=== PATIENT | male | born 1950 ===

== ENCOUNTER 2020-01-10 20:05 | Inpatient (IN) | payer MEDICARE ==
[~2020-01-10] VITALS: Ht 188 cm; Wt 66.6 kg
[2020-01-10 20:45] VITALS: BP 160/83
--- NOTE | 2020-01-10 21:29 | NUR ---
Admission Note with Justification for Admission to [facility] Patient admitted to [facility] for protective oversight for emergency stabilization of acute psychiatric crisis. Pt admitted from: [facility] Medina Mcmillan Mode of arrival: EMS Accompanied By: EMS Precipitating behaviors that initiated intake and admission: touched peer raised her shirt and touched her breasts, exposed himself from the waist down and soliciting peers to touch him, agitated Description of failure of out patient attempts at stabilization in previous setting list behavior and medication trials: redirection,observation, PRN Lorazepam, behavioral monitoring Behaviors and assessment findings upon admission: Calm and cooperative, VSS, oriented to name and only, ambulatory Plan: Admit for protective oversight for adjustment and stabilization of medications, behaviors and mood. Intense treatment regimen including groups, medication adjustments, therapy, consistent regimen for ADL's, self care, and sleep hygiene. Daily monitoring by Inpatient staff, Psychiatry, and Medical Physician.
[2020-01-10] MEDS ORDERED: TAMS0.4C97 PO (21:37)
[2020-01-10] MEDS ORDERED: CLON0.5T4 PO (21:37)
[2020-01-10] MEDS ORDERED: ACET650S11 RC (21:37)
[2020-01-10] MEDS ORDERED: LISI-334 PO (21:37)
[2020-01-10] MEDS ORDERED: QUET25TA5 PO (21:37)
[2020-01-10] MEDS ORDERED: MELA3TAB4 PO (21:37)
[2020-01-10] MEDS ORDERED: MORP100S3 SL (21:37)
[2020-01-10] MEDS ORDERED: ATRO2DRO3 SL (21:37)
[2020-01-10] MEDS ORDERED: LORA2ORA8 PO (21:37)
[2020-01-10] MEDS ORDERED: SENN8.6T11 PO (21:37)
[2020-01-10] MEDS ORDERED: MAG HYDROX/AL HYDROX/SIMETH 30 ML ORAL.SUSP PO PRN (21:45)
[2020-01-10] MEDS ORDERED: METHYL SALICYLATE/MENTHOL TOPICAL OINTMENT 57GM TUBE. TP PRN (21:45)
[2020-01-10] MEDS ORDERED: ACETAMINOPHEN 325 MG TABLET PO PRN (21:45)
--- NOTE | 2020-01-10 21:55 | PDOC ---
Exam Note: Ceasar Note: Please also refer to the separate dictated note~for this date of service dictated separately.~Patient seen individually. Discussed the patient with Nursing staff reviewed the chart.~Reviewed interim history and current functioning. Reviewed vital signs,~Labs/ Radiology~and current medications noted below. Continue current treatment with the changes noted in the dictated addendum note Assessment: Vital Signs/I&O: Vital Signs Date Time Temp Pulse Resp B/P (MAP) Pulse Ox O2 Delivery O2 Flow Rate FiO2 01/10/20 20:45 97.9 71 18 160/83 (108) 100 Current Medications: I have reviewed the current psychotropics carefully including drug interactions. Risk benefit ratio favors no change other than as noted in my dictated progress note. ROGE HOGAN MD Jan 10, 2020 21:55
[2020-01-10] MEDS: QUEtiapine 25 MG TABLET. PO SCH (22:36)
[2020-01-10] MEDS: clonazePAM 0.5 MG TABLET PO SCH (22:36)
[2020-01-10] MEDS: MELATONIN 3 MG TABLET PO SCH (22:37)
--- NOTE | 2020-01-11 00:58 | NUR ---
When pt arrived on [facility] he was pleasant and cooperative. He is very confused and tried to answer questions but was only able to give name and . Later he was able to state the names of his children and . After the admit process he lay quietly in bed and eventually fell to sleep. When awaken for HS meds he took them whole without difficulty. He then said we need to make some changes in the jobs at his work because he "cannot add or subtract anymore". After some conversation he went back to sleep. Pt has had no behaviors tonight.
[2020-01-11 03:31] LABS: BACTERIA,URINE 0 /HPF (0-FEW); BILIRUBIN,URINE NEG (NEG); CLARITY,URINE CLEAR; COLOR,URINE YELLOW; GLUCOSE,URINE NEG (NEG); NITRITE,URINE NEG (NEG); RBC,URINE 0 /HPF (0-2); SQUAMOUS EPITHELIAL CELL,UR OCC /LPF; WBC,URINE RARE /HPF (0-4)
[2020-01-11 05:38] VITALS: BP 103/62
--- NOTE | 2020-01-11 06:15 | NUR ---
Covid nasal swab done and sent to lab. Pt has slept well tonight and was cooperative with swab and lab draw.
[2020-01-11 06:48] LABS: BASO % 1 % (0-3); EOS # 0.2 x10^3/uL (0.0-0.7); EOS % 4 % (0-3); HEMATOCRIT 38.6 % (39.0-53.0); HEMOGLOBIN 12.9 g/dL (13.0-17.5); LYMPH # 1.9 x10^3/uL (1.0-4.8); LYMPH % 38 % (24-48); MEAN CORPUSCULAR HEMOGLOBIN 30 pg (25-35); MEAN CORPUSCULAR HGB CONC 33 g/dL (31-37); MEAN CORPUSCULAR VOLUME 89 fL (79-100); MONO # 0.6 x10^3/uL (0.0-1.1); MONO % 13 % (0-9); NEUT # 2.2 x10^3uL (1.8-7.7); NEUT % 45 % (31-73); PLATELET COUNT 238 x10^3/uL (140-400); RED BLOOD COUNT 4.34 x10^6/uL (4.30-5.70); RED CELL DISTRIBUTION WIDTH 14.2 % (11.5-14.5); WHITE BLOOD COUNT 4.9 x10^3/uL (4.0-11.0)
[2020-01-11 06:59] LABS: ALBUMIN 3.1 g/dL (3.4-5.0); ALBUMIN/GLOBULIN RATIO 1.2 (1.0-1.7); CALCIUM 8.5 mg/dL (8.5-10.1); CREATININE 0.9 mg/dL (0.7-1.3); GFR 83.7; POTASSIUM 3.6 mmol/L (3.5-5.1); TOTAL BILIRUBIN 0.2 mg/dL (0.2-1.0); TOTAL PROTEIN 5.7 g/dL (6.4-8.2)
--- NOTE | 2020-01-11 10:00 | NUR ---
ACTIVITY THERAPY ASSESSMENTS based on notes, observation, and interview. Pt was sitting on his bed reading a bible given to him by AT. AT asked if the pt was willing to answer some questions and he said yes. Pt was calm, pleasant, and controlled during time of assessment. Pt likes to watch sports, play cards games and poker, listen to music-beatles, exercise, and was raised adventist and has accepted Mirza. Pt said that he thought he was and has two children. Pt struggled to come up with the names of his two children. Pt then said 'I have memory problems.' Pt was unable to recall some facts and details about his family. AT asked pt if he knew where he was and he knew that he was in a hospital but could not come up with the hospital name. AT asked pt if he knew why he was here and he said because he was getting angry and upset. Per notes pt didn't mention his sexually inappropriate behaviors. Pt said that he liked to go to sporting events with his family. AT asked what pt liked to do with his friends and he said that he has tons of friends and lost them. AT asked if the pt reported any stress which he said yes. AT asked how he rick with stress and he said that you can't let things get to you. AT asked pt how his eyesight and hearing was. Pt said that his eyes were good but hearing is not so good. Pt seemed to struggle to hear AT through N95 at certain points and some questions were repeated for him. AT asked if pt knew where he came before his admission and he said it was a facility in [place] and he believed the name started with an A. AT asked if pt has a good support sytem and he said that he has always had a good support system. Pt states that 'things have went to heck lately' and 'my memory of things have went out.' Pt seemed to be a bit frustrated and upset with his memory loss. Initial goal aimed to increase stress management/relaxation and self-esteem development skills. Pt will participate in at least three individual or group Activity Therapy sessions per week.
[2020-01-11] MEDS: QUEtiapine 25 MG TABLET. PO SCH ×2 (10:55→20:23)
[2020-01-11] MEDS: LISINOPRIL 20 MG TABLET PO SCH (10:55)
[2020-01-11] MEDS: TAMSULOSIN 0.4 MG CAP.ER.24H. PO SCH (10:55)
--- NOTE | 2020-01-11 12:23 | CONS ---
DATE OF CONSULTATION: 01/11/2020 ATTENDING PHYSICIAN: Dr. Ford. REASON FOR CONSULTATION: We are asked to see this patient for medical consultation. HISTORY OF PRESENT ILLNESS: The patient is a pleasant 69-year-old gentleman recently admitted from [facility], a fpc in [place], [place]. He has a diagnosis of Lewy body dementia with behavioral issues. When I saw him, he was very cooperative. He does have dementia and gave me a limited history. There were issues with his , who is the power of attorney at law, used to live in a town called [place], [place]. 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 He had been fairly successful, but he has been in decline over the last year. He is a DNR order from outside hospital. PAST MEDICAL HISTORY: Gleaned from the chart. He has underlying dementia, some degenerative arthritis and essential hypertension. ALLERGIES: He has allergies to ZOFRAN and CEFADROXIL, the exact reaction is unclear. MEDICATIONS: Currently scheduled medicines include Tylenol, atropine eyedrops, clonazepam, lisinopril 20 mg daily, lorazepam, melatonin, morphine, Seroquel, senna and Flomax. SOCIAL HISTORY: He is a nonsmoker, no drinking history noted. FAMILY HISTORY: Unobtainable due to the patient's confusion. REVIEW OF SYSTEMS: Unfortunately, unobtainable. I did observe him. His appetite is fair. He ate most of his breakfast. PHYSICAL EXAMINATION: GENERAL: When I saw him, this is a pleasant, middle-aged gentleman. INITIAL VITAL SIGNS: Showed a blood pressure fluctuating between 110 and 160 mmHg. His temperature was 98.1 degrees Fahrenheit, oxygen saturation 99% on room air, pulse is 66 and regular. HEENT: Head is without trauma. The pupils are reactive. The sclerae are nonicteric. The oropharynx is clear. NECK: Supple. There is no thyromegaly or bruits. LUNGS: Otherwise, clear to auscultation. CARDIOVASCULAR: Showed regular heart tones. No obvious gallops. Peripheral pulses are palpable and full. ABDOMEN: Soft, scaphoid, nontender. Bowel sounds were normoactive. EXTREMITIES: Showed no cyanosis or edema. SKIN: Warm and dry. NEUROLOGIC: His cranial nerves 2-12 are grossly intact. His tongue is midline. Uvula is midline. His customer account technician in upper and lower extremities are equal and symmetrical. Deep tendon reflexes of upper and lower extremities are equal and symmetrical. Negative Babinski. I did assess him for his gait. He has a negative Romberg. PERTINENT LABORATORY STUDIES: His hemoglobin is 12.9 g/dL with a white count of 4900. Electrolytes showed a sodium 145 mEq, potassium 3.6, creatinine 0.9 mg percent. Transaminases are within normal range. Nonfasting blood sugar 103. A COVID-19 swab prior to admission was negative. ASSESSMENT: 1. A 69-year-old gentleman who has unfortunately Lewy body dementia. 2. Behavioral issues associated with dementia. 3. Essential hypertension with labile blood pressures. 4. Degenerative arthritis. RECOMMENDATIONS: 1. I reviewed his medicines. The patient is stable from a medical standpoint. 2. Continue medicines as ordered. 3. We should gladly follow along during the course of his hospitalization. Thank you again for asking me to see this patient for medical consultation. MARISSA ACOSTA MD DR: NANNETTE/lilli JOB#: [id number] / [id number] ROGE Torres MD
--- NOTE | 2020-01-11 14:00 | NUR ---
Nurse took patient to radiology for head CT. Patient calm and cooperative with CT. He told this nurse he is [facility]. Patient joined music group in front of the [employer] station.
--- NOTE | 2020-01-11 14:35 | NUR ---
Patient has been calm and cooperative. He was oriented x4 at the time of assessment. Patient laying down on bed, reading a book. He is med compliant and pleasant. No adverse behaviors have been noted.
[2020-01-11 15:31] VITALS: BP 127/65
--- NOTE | 2020-01-11 15:32 | RAD ---
EXAM: CT HEAD WITHOUT CONTRAST. HISTORY: Altered mental status. TECHNIQUE: Computed tomography of the head was performed without intravenous contrast. One or more of the following individualized dose reduction techniques were utilized for this examination: 1. Automated exposure control. 2. Adjustment of the mA and/or kV according to patient size. 3. Use of iterative reconstruction technique. COMPARISON: None. FINDINGS: There is no intracranial hemorrhage. Hypoattenuation within the periventricular white matter indicates mild chronic microangiopathic change. The ventricles are normal in size and position. There is mild mucosal thickening within the ethmoid air cells. The orbits are unremarkable. The temporal bones are unremarkable. The calvarium reveals no suspicious lesions. IMPRESSION: 1. No acute intracranial findings. Mild chronic microangiopathic white matter change. Electronically signed by: Marce Vee MD (01/11/2020 3:29 PM) [id number]
[2020-01-11 16:07] LABS: THYROXINE 5.8 ug/dL (4.5-12.0)
[2020-01-11 16:22] LABS: THYROID STIM HORMONE (TSH) 2.04 uIU/mL (0.358-3.740)
--- NOTE | 2020-01-11 17:30 | NUR ---
PSYCHOSOCIAL ASSESSMENT ADMISSION DATE: 01/10/20 CONTACT INFORMATION: DPOA/Guardian Contact Name: Magda Garcia Contact Address: [place] [address] Contact Phone #: ETHNIC ORIGIN: REASONS FOR ADMISSION: Agitated Poor impulse control Other ADDITIONAL ADMISSION COMMENTS: According to the intake, pt touched a peer and raised her shirt to touch her breasts. Pt is exposing himself from waist down and soliciting peers to touch him. Pt is agitated, combative with staff and urinating in the hallway. REASON FOR ADMISSION IN PATIENT/FAMILY'S OWN WORDS: This is just a phase he is going through...part of his dx I guess. PATIENT/FAMILY EXPECTATIONS FOR ADMISSION: Decrease his behaviors so he can return to [facility]. LIVING SITUATION: Patient lives with: Memory Care Other living arrangements: Contact Name: Hipolito Contact Address: [address] [place] [address]; [place] [address] Contact Phone #: Contact Fax #: FAMILY RELATIONS: Marital Status: # of Marriages: 1 # of Children: 2 [facility] Family Support: Concerned Cooperative Involved in DC Planning Additional Comments r/t Family: Pt has been to his Magda for the last 45 years. Their 46th anniversary is March 10 (12 days before his birthday). Together they have 2 children: Yadira and Robert who live in [place]. SIGNIFICANT PSYCHIATRIC/MEDICAL HISTORY: Psychiatric/Treatment History: This is pt first admission to [facility]. He has come in with a Lewy body Dementia dx. Pertinent Family History: Pt sister, who's name is also Magda, had Alzheimers. HISTORICAL DATA: Childhood Environment: Other-see below Childhood Environment Additional Comments: Pt childhood was not discussed. 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 service: N Mandaen background: No preference Sexual orientation: Heterosexual Educational Level: Pt graduated High school (12th grade) then continued to get his B.S. in Accounting and Business Mgmt Past/Present Interests/Hobbies: Anything sports politics games (Jenga) crossword puzzles Financial support/resources: Chcf/Pension Social Security Monthly income: Person handling finances: Pt handles all medications. Do you have a history of legal problems: N Cultural considerations: None SOCIAL RELATIONSHIPS-CURRENT/PAST: Psychiatrist: None PCP: Dr. Denny Counselor/Therapist: None Veterans' Administration: None Support Group: None Glassware Finisher/Capacitor Tester: None Other relationships: staff at [facility] STRENGTHS & WEAKNESSES: Patient's strengths: Good family support Education level Ambulatory Other patient strengths: Patient's weaknesses: Impulsive Poor social skills Other Other patient weaknesses: PRELIMINARY PLAN OF TREATMENT: Preliminary plan: Medication Stabilization Monitor Med Effects Control abnormal behavior Other Other preliminary treatment comments: Decrease in sexualized behaviors. DISCHARGE PLANNING: Discharge planning/disposition: Current Living Arrange. Additional discharge needs identified: ADDITIONAL INFORMATION: Other Pertinent Data: SW gathered information from pt , the facility and information on the intake. As it stands, pt family would like to pt to return to [facility] once he is stable. Pt mentioned that without being able to do visits, they have been doing some face to face interactions online through Zoom. Pt wondered if once pt was more stable if she would be able to have a Zoom meet with pt. SW will discuss this with the team.
[2020-01-11] MEDS: clonazePAM 0.5 MG TABLET PO SCH (20:23)
[2020-01-11] MEDS: MELATONIN 3 MG TABLET PO SCH (20:23)
--- NOTE | 2020-01-11 21:30 | NUR ---
At med pass pt was in his room he is pleasant and well oriented. He asked why he is here and how can he get out. Discussed the behaviors that caused him to be sent here, exposing self and inappropriate touching of others. He said he remembers doing those things and that he will just have to stop doing that. He was compliant with meds then shown around the unit. Explained to him that mask needs to be worn in [place] and only to go into his room. This had to be reinforced a couple of times then he returned to his room.
--- NOTE | 2020-01-11 21:59 | PDOC ---
Exam Note: Ceasar Note: Please also refer to the separate dictated note~for this date of service dictated separately.~Patient seen individually. Discussed the patient with Nursing staff reviewed the chart.~Reviewed interim history and current functioning. Reviewed vital signs,~Labs/ Radiology~and current medications noted below. Continue current treatment with the changes noted in the dictated addendum note Assessment: Vital Signs/I&O: Vital Signs Date Time Temp Pulse Resp B/P (MAP) Pulse Ox O2 Delivery O2 Flow Rate FiO2 01/11/20 20:25 97.4 72 98 01/11/20 15:31 16 127/65 (85) I & O 01/10/20 01/10/20 01/11/20 15:00 23:00 07:00 Intake Total 200 ml Balance 200 ml Labs: Laboratory Tests Test 01/11/20 02:30 01/11/20 06:11 Urine Collection Type Unknown Urine Color Yellow Urine Clarity Clear Urine pH 6.0 Urine Specific [place] 1.025 Urine Protein Neg (NEG-TRACE) Urine Glucose (UA) Neg mg/dL (NEG) Urine Ketones (Stick) Neg mg/dL (NEG) Urine Blood Neg (NEG) Urine Nitrite Neg (NEG) Urine Bilirubin Neg (NEG) Urine Urobilinogen Dipstick 1.0 mg/dL (0.2 mg/dL) Urine Leukocyte Esterase Neg (NEG) Urine RBC 0 /HPF (0-2) Urine WBC Rare /HPF (0-4) Urine Squamous Epithelial Cells Occ /LPF Urine Bacteria 0 /HPF (0-FEW) White Blood Count 4.9 x10^3/uL (4.0-11.0) Red Blood Count 4.34 x10^6/uL (4.30-5.70) Hemoglobin 12.9 g/dL (13.0-17.5) L Hematocrit 38.6 % (39.0-53.0) L Mean Corpuscular Volume 89 fL (79-100) Mean Corpuscular Hemoglobin 30 pg (25-35) Mean Corpuscular Hemoglobin Concent 33 g/dL (31-37) Red Cell Distribution Width 14.2 % (11.5-14.5) Platelet Count 238 x10^3/uL (140-400) Neutrophils (%) (Auto) 45 % (31-73) Lymphocytes (%) (Auto) 38 % (24-48) Monocytes (%) (Auto) 13 % (0-9) H Eosinophils (%) (Auto) 4 % (0-3) H Basophils (%) (Auto) 1 % (0-3) Neutrophils # (Auto) 2.2 x10^3uL (1.8-7.7) Lymphocytes # (Auto) 1.9 x10^3/uL (1.0-4.8) Monocytes # (Auto) 0.6 x10^3/uL (0.0-1.1) Eosinophils # (Auto) 0.2 x10^3/uL (0.0-0.7) Basophils # (Auto) 0.0 x10^3/uL (0.0-0.2) Sodium Level 145 mmol/L (136-145) Potassium Level 3.6 mmol/L (3.5-5.1) Chloride Level 110 mmol/L (98-107) H Carbon Dioxide Level 29 mmol/L (21-32) Anion Gap 6 (6-14) Blood Urea Nitrogen 22 mg/dL (8-26) Creatinine 0.9 mg/dL (0.7-1.3) Estimated GFR (Cockcroft-Gault) 83.7 BUN/Creatinine Ratio 24 (6-20) H Glucose Level 103 mg/dL (70-99) H Calcium Level 8.5 mg/dL (8.5-10.1) Magnesium Level 2.0 mg/dL (1.8-2.4) Iron Level 55 ug/dL (65-175) L Total Iron Binding Capacity 257 ug/dL (250-450) Iron Saturation 21 % (15-34) Total Bilirubin 0.2 mg/dL (0.2-1.0) Aspartate Amino Transferase (AST) 7 U/L (15-37) L Alanine Aminotransferase (ALT) 17 U/L (16-63) Alkaline Phosphatase 54 U/L (46-116) Total Protein 5.7 g/dL (6.4-8.2) L Albumin 3.1 g/dL (3.4-5.0) L Albumin/Globulin Ratio 1.2 (1.0-1.7) Triglycerides Level 59 mg/dL (0-150) Cholesterol Level 165 mg/dL (0-200) LDL Cholesterol, Calculated 95 mg/dL (0-100) VLDL Cholesterol, Calculated 11 mg/dL (0-40) Non-HDL Cholesterol Calculated 106 mg/dL (0-129) HDL Cholesterol 59 mg/dL (40-60) Cholesterol/HDL Ratio 2.0 Vitamin B12 Level 290 pg/mL (247-911) 25-Hydroxy Vitamin D Total 22.9 ng/mL (30-100) L Thyroid Stimulating Hormone (TSH) 2.040 uIU/mL (0.358-3.740) Thyroxine (T4) 5.8 ug/dL (4.5-12.0) Total Triiodothyronine (TT3) 89 ng/dL (71-180) Treponema pallidum Antibody Nonreactive (Nonreactive) Current Medications: Meds: Current Medications Medications (Trade) Dose Ordered Sig/Jone Route PRN Reason Start Time Stop Time Status Last Admin Dose Admin Clonazepam (KlonoPIN) 0.5 mg HS PO 01/10/20 22:30 01/11/20 20:23 Lisinopril (Prinivil) 20 mg DAILY PO 01/11/20 09:00 01/11/20 10:55 Melatonin (Melatonin) 3 mg HS PO 01/10/20 22:30 01/11/20 20:23 Quetiapine Fumarate (SEROquel) 25 mg BID PO 01/10/20 22:30 01/11/20 20:23 Tamsulosin HCl (Flomax) 0.4 mg DAILY PO 01/11/20 09:00 01/11/20 10:55 I have reviewed the current psychotropics carefully including drug interactions. Risk benefit ratio favors no change other than as noted in my dictated progress note. ROGE HOGAN MD Jan 11, 2020 21:58
[2020-01-12 00:07] LABS: HEMOGLOBIN A1C 5.5 % (4.8-5.6)
[2020-01-12 06:58] VITALS: BP 116/79
[2020-01-12] MEDS: LISINOPRIL 20 MG TABLET PO SCH (08:07)
[2020-01-12] MEDS: QUEtiapine 25 MG TABLET. PO SCH ×2 (08:07→21:10)
[2020-01-12] MEDS: TAMSULOSIN 0.4 MG CAP.ER.24H. PO SCH (08:07)
--- NOTE | 2020-01-12 11:22 | NUR ---
Dr Mills informed of Vit D 22.9. No new orders noted.
--- NOTE | 2020-01-12 13:27 | HP ---
ADMIT DATE: 01/10/2020 PSYCHIATRIC ADMISSION HISTORY/EVALUATION This late entry 01/09 covers elements not covered in my initial note. I met with the patient individually and discussed earlier with Agnes Robles, application coordinator and nursing staff, SUGEY Mercado. IDENTIFYING DATA: The patient is a 69-year-old male referred to us from [facility] in [place], [place], by his primary care physician and psychiatrist with a diagnosis of Lewy body dementia with delusion, behavioral disturbance. Reportedly, the patient has been sexually inappropriate, raised the shirt and touched the breast of a female peer, exposed himself and solicited peers to touch him. He has been agitated. At times, he seems much more confused than at other times consistent with his Lewy body dementia diagnosis. He has been on hospice care, but halfway indicated. This was because he was extremely sedated, withdrawn at admission to the facility. Since then has not seemed to quite meet criteria for hospice and this was revoked. CHIEF COMPLAINT: "I don't do those things." HISTORY OF PRESENT ILLNESS: The patient reportedly has a history of Lewy body dementia. [facility], recently getting increasingly agitated, sexually inappropriate with sleep and appetite changes, worsening confusion, paranoia and impulse control problems. No active suicidal or homicidal ideation. No clear history of bipolar disorder. PAST PSYCHIATRIC HISTORY: As above. PAST MEDICAL HISTORY: Hypertension, hyperlipidemia, history of encephalopathy, seizure disorder, BPH, chronic constipation. DIET: Regular. Takes medications whole, ambulates independently. CODE STATUS: DNR. ALLERGIES: DURICEF AND ZOFRAN. CURRENT PSYCHOTROPICS: Seroquel 25 mg b.i.d., melatonin 3 mg at bedtime, Klonopin 0.5 mg at bedtime for seizures. 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 No alcohol or drug abuse, physical, sexual or elder abuse history is noted. Not known to be a perpetrator. FAMILY HISTORY: Noncontributory. REVIEW OF SYSTEMS: No CV, , pulmonary, eye, ENT system symptoms on review. MENTAL STATUS EXAMINATION: The patient was seen individually. He is oriented to himself and situation. Speech has some latency, somewhat hard of hearing. Abstraction fair, computation impaired, language function intact. Short term memory is impaired, paranoid, somewhat dysphoric, minimizes this for his mood. No suicidal or homicidal ideation. Attention span is short. LABORATORY DATA: Reviewed. IMPRESSION: Major depressive disorder with psychotic features; Lewy body dementia; major neurocognitive disorder; Lewy body with delusion; depression; behavioral disturbance; anxiety disorder, unspecified; impulse control disorder, unspecified. PLAN: Admit to Geropsychiatry Unit at [facility]. I will see the patient daily individually from a psychiatric standpoint. Medical followup with Dr. Nunez/Dr. Mills. Continue the patient on his current psychotropics. Consider having a CT head if not done recently. Make further adjustments as clinically indicated. MAN Kamini HOGAN MD DR: AMANDA/lilli JOB#: [id number] / [id number]
--- NOTE | 2020-01-12 13:47 | PN ---
DATE: 01/11/2020 PSYCHIATRIC PROGRESS NOTE This late entry 01/11/2020 covers elements not covered in my initial note. SUBJECTIVE: I met with the patient evening of 01/11/2020 on telehealth rounds with SUGEY Mercado and SUGEY Kraus and staffed at a treatment team meeting with the entire team in the morning along with [facility] social service staff, Agnes Robles social service staff. The patient slept 5-3/4 hours previous night. He is oriented x 2, hospice care was revoked. CT head has been requested given his diagnosis of Lewy body dementia. He has been somewhat more confused at times and other times verbal interactive as I met with him. REVIEW OF SYSTEMS: No CV, , pulmonary, eye system symptoms on review. MENTAL STATUS EXAMINATION: Oriented to himself and situation. Speech has some latency, coherent. Abstraction fair, computation impaired, language function intact, attention span short. Mood and affect withdrawn. LABORATORY DATA: Reviewed. IMPRESSION: Major depressive disorder with psychotic features; major neurocognitive disorder, Lewy body with delusion, depression, behavioral disturbance; anxiety disorder, unspecified; impulse control disorder, unspecified. PLAN: Continue current psychotropics. Add Zyprexa 2.5 mg q.2 hours p.r.n. psychosis, agitation, max 10 mg in [address] head. Continue rest of the psychotropics. Adjust further as clinically indicated. MAN Kamini HOGAN MD DR: AMANDA/lilli JOB#: [id number] / [id number]
[2020-01-12 16:09] VITALS: BP 130/70
--- NOTE | 2020-01-12 16:34 | NUR ---
pt out of room in [place] with penis hanging out. Pt was shaking it at staff. Redirected several times. PRN's utilized.
[2020-01-12] MEDS: MELATONIN 3 MG TABLET PO SCH (21:10)
--- NOTE | 2020-01-12 22:00 | NUR ---
Patient is in his room on assumption of care. He is flat, sarcastic. When asked by this nurse how he was doing, he responded "Well, I shit and pissed my pants, and it's been going on for an eternity." This nurse encouraged patient to go into the bathroom and get changed, and he was resistant at first, stating "I can't afford any more of this." Nurse assured him that briefs and gown changes were included with his stay, and he responded "Bullshit, I already have some in my closet." Patient retrieved a brief and returned to the bathroom. He was able to clean himself up independently and change his clothing. This nurse asked him why he didn't get up to use the restroom, and he simply restated "It's been a goddamn eternity already." Fixed up patient bed and helped him get covered up. He was compliant with assessments and took his medications whole at that point. Denies any pain or discomfort. Denies SI/HI. Will continue to monitor.
--- NOTE | 2020-01-12 22:03 | PN ---
DATE: 01/12/2020 PSYCHIATRIC PROGRESS NOTE This note covers the elements not covered in my initial note of 01/12/2020. SUBJECTIVE: The patient was seen on telehealth rounds in the evening. Per nursing report by SUGEY Holt, the patient appears reasonably oriented at certain times, other times, appears more confused. Earlier in the day, he was walking with his penis hanging outside his clothes, refused to put it in, quite disorganized. CT head shows no acute changes or white matter changes, nothing specific for frontotemporal dementia. He remains impulsive. REVIEW OF SYSTEMS: No CV, , pulmonary, eye, ENT system symptoms on review. Reliability varies. MENTAL STATUS EXAM: Oriented to himself when I met with him in the evening. Insight, judgment, recent memory is impaired. Language function intact. Attention span short. Mood and affect remains withdrawn. Other times, more disinhibited and extroverted. LABORATORY DATA: Reviewed. IMPRESSION: Major neurocognitive disorder, early, possibly Lewy body frontotemporal with delusion, depression, behavioral disturbance, major depressive disorder with psychotic features; psychotic disorder, unspecified. Rest unchanged. PLAN: Stop Klonopin 0.5 mg at bedtime since this could be disinhibiting him, start Depakote Sprinkles 125 mg 9 a.m. and 5 p.m. Check CBC, CMP, valproic acid level in 3 days. Start trazodone 50 mg at bedtime p.r.n. insomnia, may repeat x 1. Maintain melatonin 3 mg at bedtime, Seroquel 25 mg b.i.d., Zyprexa p.r.n. Rest unchanged for now. MAN Kamini HOGAN MD DR: AMANDA/lilli JOB#: [id number] / [id number]
--- NOTE | 2020-01-12 22:04 | PDOC ---
Exam Note: Ceasar Note: Please also refer to the separate dictated note~for this date of service dictated separately.~Patient seen individually. Discussed the patient with Nursing staff reviewed the chart.~Reviewed interim history and current functioning. Reviewed vital signs,~Labs/ Radiology~and current medications noted below. Continue current treatment with the changes noted in the dictated addendum note Assessment: Vital Signs/I&O: Vital Signs Date Time Temp Pulse Resp B/P (MAP) Pulse Ox O2 Delivery O2 Flow Rate FiO2 01/12/20 16:09 98.0 68 20 130/70 (90) 98 I & O 01/11/20 01/11/20 01/12/20 15:00 23:00 07:00 Intake Total 360 ml 240 ml Balance 360 ml 240 ml Current Medications: I have reviewed the current psychotropics carefully including drug interactions. Risk benefit ratio favors no change other than as noted in my dictated progress note. Diagnosis: Problems: (1) Major depressive disorder with psychotic features (2) Lewy body dementia with behavioral disturbance (3) Major neurocognitive disorder (4) Anxiety disorder, unspecified (5) Impulse control disorder, unspecified ROGE HOGAN MD Jan 12, 2020 22:04
[2020-01-13 05:38] VITALS: BP 131/76
[2020-01-13] MEDS: DIVALPROEX 125 MG CAP.SPRINK PO SCH ×2 (08:38→16:30)
[2020-01-13] MEDS: LISINOPRIL 20 MG TABLET PO SCH (08:38)
[2020-01-13] MEDS: TAMSULOSIN 0.4 MG CAP.ER.24H. PO SCH (08:39)
[2020-01-13] MEDS: QUEtiapine 25 MG TABLET. PO SCH ×2 (08:39→20:08)
[2020-01-13 16:12] VITALS: BP 130/85
--- NOTE | 2020-01-13 18:00 | NUR ---
Pt has been up in walking halls with mask on. Attended groups. Has been very disorganized. Has difficulty with word finding. No sexually inappropriate sexual behavior this shift. Intermittent anxiety relieved with PRN zydis.
[2020-01-13] MEDS: MELATONIN 3 MG TABLET PO SCH (20:07)
[2020-01-13] MEDS: traZODone 50 MG TABLET. PO PRN ×2 (20:07→21:50)
[2020-01-13] MEDS ORDERED: hydrOXYzine HCL 25 MG TABLET PO PRN (21:00)
--- NOTE | 2020-01-13 21:50 | PDOC ---
Exam Note: Ceasar Note: Please also refer to the separate dictated note~for this date of service dictated separately.~Patient seen individually. Discussed the patient with Nursing staff reviewed the chart.~Reviewed interim history and current functioning. Reviewed vital signs,~Labs/ Radiology~and current medications noted below. Continue current treatment with the changes noted in the dictated addendum note Assessment: Vital Signs/I&O: Vital Signs Date Time Temp Pulse Resp B/P (MAP) Pulse Ox O2 Delivery O2 Flow Rate FiO2 01/13/20 16:12 98.3 59 20 130/85 (100) 96 Room Air I & O 01/12/20 01/12/20 01/13/20 15:00 23:00 07:00 Intake Total 240 ml 680 ml Balance 240 ml 680 ml Current Medications: Meds: Current Medications Medications (Trade) Dose Ordered Sig/Jone Route PRN Reason Start Time Stop Time Status Last Admin Dose Admin Divalproex Sodium (Depakote Sprinkles) 125 mg BIDBFRMEAL PO 01/13/20 07:30 01/13/20 16:30 I have reviewed the current psychotropics carefully including drug interactions. Risk benefit ratio favors no change other than as noted in my dictated progress note. Diagnosis: Problems: (1) Psychotic disorder (2) Impulse control disorder, unspecified (3) Lewy body dementia with behavioral disturbance (4) Anxiety disorder, unspecified (5) Major neurocognitive disorder (6) Major depressive disorder with psychotic features ROGE HOGAN MD Jan 13, 2020 21:50
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
[2020-01-14] MEDS ORDERED: HALOPERIDOL LACT 5 MG/ML VIAL. IM ONE ×2 (00:30→01:15)
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
[2020-01-14 04:30] VITALS: BP 114/68
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
[2020-01-14] MEDS: DIVALPROEX 125 MG CAP.SPRINK PO SCH ×2 (08:17→16:30)
[2020-01-14] MEDS: TAMSULOSIN 0.4 MG CAP.ER.24H. PO SCH (08:17)
[2020-01-14] MEDS: QUEtiapine 25 MG TABLET. PO SCH ×2 (08:17→20:44)
[2020-01-14] MEDS: LISINOPRIL 20 MG TABLET PO SCH (08:17)
[2020-01-14] MEDS: HALOPERIDOL LACT 5 MG/ML VIAL. IM SCH ×2 (08:18→09:00)
--- NOTE | 2020-01-14 15:32 | NUR ---
Pt hyperverbal and very disorganized with thought most of day. Pt drwsy in afternoon. Pt escorted back to room. IM haldol and Ativan not administered. Pt did take am meds without difficulty.
[2020-01-14 16:07] VITALS: BP 110/61
[2020-01-14] MEDS: MELATONIN 3 MG TABLET PO SCH (20:44)
--- NOTE | 2020-01-14 21:56 | PDOC ---
Exam Note: Ceasar Note: Please also refer to the separate dictated note~for this date of service dictated separately.~Patient seen individually. Discussed the patient with Nursing staff reviewed the chart.~Reviewed interim history and current functioning. Reviewed vital signs,~Labs/ Radiology~and current medications noted below. Continue current treatment with the changes noted in the dictated addendum note Assessment: Vital Signs/I&O: Vital Signs Date Time Temp Pulse Resp B/P (MAP) Pulse Ox O2 Delivery O2 Flow Rate FiO2 01/14/20 16:07 97.8 88 16 110/61 (77) 92 01/13/20 16:12 Room Air I & O 01/13/20 01/13/20 01/14/20 15:00 23:00 07:00 Intake Total 480 ml 480 ml Balance 480 ml 480 ml Current Medications: Meds: Current Medications Medications (Trade) Dose Ordered Sig/Jone Route PRN Reason Start Time Stop Time Status Last Admin Dose Admin Haloperidol Lactate (Haldol) 5 mg 1X ONCE IM 01/14/20 00:30 01/14/20 00:37 DC 01/14/20 00:45 Lorazepam (Ativan Inj) 0.5 mg 1X PRN IM ANXIETY / AGITATION 01/14/20 01:15 01/14/20 01:30 DC 01/14/20 00:45 I have reviewed the current psychotropics carefully including drug interactions. Risk benefit ratio favors no change other than as noted in my dictated progress note. Diagnosis: Problems: (1) Impulse control disorder, unspecified (2) Lewy body dementia with behavioral disturbance (3) Anxiety disorder, unspecified (4) Major neurocognitive disorder (5) Major depressive disorder with psychotic features (6) Psychotic disorder ROGE HOGAN MD Jan 14, 2020 21:56
[2020-01-15 05:44] VITALS: BP 106/63
--- NOTE | 2020-01-15 06:00 | NUR ---
Pt awake in hallway and was asking how and when he can get out of here. He seemed as if he was becoming a bit agitated. He was placed briefly in [place] [facility] where he sat quietly drank some OJ and said he wanted to go back to bed. He then laid down and went back to sleep. His behavior did not escalate.
[2020-01-15 06:29] LABS: BASO % 1 % (0-3); EOS # 0.1 x10^3/uL (0.0-0.7); EOS % 2 % (0-3); HEMATOCRIT 40.6 % (39.0-53.0); HEMOGLOBIN 13.6 g/dL (13.0-17.5); LYMPH # 1.6 x10^3/uL (1.0-4.8); LYMPH % 25 % (24-48); MEAN CORPUSCULAR HEMOGLOBIN 30 pg (25-35); MEAN CORPUSCULAR HGB CONC 33 g/dL (31-37); MEAN CORPUSCULAR VOLUME 90 fL (79-100); MONO # 0.7 x10^3/uL (0.0-1.1); MONO % 11 % (0-9); NEUT # 3.9 x10^3uL (1.8-7.7); NEUT % 62 % (31-73); PLATELET COUNT 248 x10^3/uL (140-400); RED BLOOD COUNT 4.52 x10^6/uL (4.30-5.70); RED CELL DISTRIBUTION WIDTH 14.2 % (11.5-14.5); WHITE BLOOD COUNT 6.3 x10^3/uL (4.0-11.0)
[2020-01-15 06:42] LABS: ALBUMIN 3.4 g/dL (3.4-5.0); ALBUMIN/GLOBULIN RATIO 1.2 (1.0-1.7); ALK PHOS 58 U/L (46-116); ALT (SGPT) 41 U/L (16-63); ANION GAP 6 (6-14); AST (SGOT) 23 U/L (15-37); BLOOD UREA NITROGEN 22 mg/dL (8-26); BUN/CREATININE RATIO 22 (6-20); CALCIUM 9.1 mg/dL (8.5-10.1); CARBON DIOXIDE 30 mmol/L (21-32); CHLORIDE 106 mmol/L (98-107); GFR 74.1; GLUCOSE 114 mg/dL (70-99); POTASSIUM 4.1 mmol/L (3.5-5.1); SODIUM 142 mmol/L (136-145); TOTAL BILIRUBIN 0.7 mg/dL (0.2-1.0); TOTAL PROTEIN 6.3 g/dL (6.4-8.2)
[2020-01-15 06:45] LABS: VAL ACID 12 mcg/mL (50-100)
[2020-01-15] MEDS: DIVALPROEX 125 MG CAP.SPRINK PO SCH ×2 (07:35→16:30)
[2020-01-15] MEDS: QUEtiapine 25 MG TABLET. PO SCH ×2 (07:35→20:48)
[2020-01-15] MEDS: TAMSULOSIN 0.4 MG CAP.ER.24H. PO SCH (07:35)
[2020-01-15] MEDS: LISINOPRIL 20 MG TABLET PO SCH (07:36)
[2020-01-15] MEDS: RIVASTIGMINE 4.6MG PATCH. TD SCH (07:39)
[2020-01-15] MEDS: MEMANTINE 5 MG TABLET. PO SCH (07:39)
[2020-01-15] MEDS: HALOPERIDOL LACT 5 MG/ML VIAL. IM SCH (07:40)
--- NOTE | 2020-01-15 16:07 | NUR ---
Pt up in room for meals. Has been withdrawn to room. Has rested quietly most of day. Compliant with meds and cares.
[2020-01-15 16:11] VITALS: BP 126/71
[2020-01-15] MEDS: MELATONIN 3 MG TABLET PO SCH (20:48)
--- NOTE | 2020-01-15 21:53 | PDOC ---
Exam Note: Ceasar Note: Please also refer to the separate dictated note~for this date of service dictated separately.~Patient seen individually. Discussed the patient with Nursing staff reviewed the chart.~Reviewed interim history and current functioning. Reviewed vital signs,~Labs/ Radiology~and current medications noted below. Continue current treatment with the changes noted in the dictated addendum note Assessment: Vital Signs/I&O: Vital Signs Date Time Temp Pulse Resp B/P (MAP) Pulse Ox O2 Delivery O2 Flow Rate FiO2 01/15/20 16:11 98.0 78 18 126/71 (89) 90 01/13/20 16:12 Room Air I & O 01/14/20 01/14/20 01/15/20 15:00 23:00 07:00 Intake Total 600 ml 120 ml Balance 600 ml 120 ml Labs: Laboratory Tests Test 01/15/20 06:15 White Blood Count 6.3 x10^3/uL (4.0-11.0) Red Blood Count 4.52 x10^6/uL (4.30-5.70) Hemoglobin 13.6 g/dL (13.0-17.5) Hematocrit 40.6 % (39.0-53.0) Mean Corpuscular Volume 90 fL (79-100) Mean Corpuscular Hemoglobin 30 pg (25-35) Mean Corpuscular Hemoglobin Concent 33 g/dL (31-37) Red Cell Distribution Width 14.2 % (11.5-14.5) Platelet Count 248 x10^3/uL (140-400) Neutrophils (%) (Auto) 62 % (31-73) Lymphocytes (%) (Auto) 25 % (24-48) Monocytes (%) (Auto) 11 % (0-9) H Eosinophils (%) (Auto) 2 % (0-3) Basophils (%) (Auto) 1 % (0-3) Neutrophils # (Auto) 3.9 x10^3uL (1.8-7.7) Lymphocytes # (Auto) 1.6 x10^3/uL (1.0-4.8) Monocytes # (Auto) 0.7 x10^3/uL (0.0-1.1) Eosinophils # (Auto) 0.1 x10^3/uL (0.0-0.7) Basophils # (Auto) 0.0 x10^3/uL (0.0-0.2) Sodium Level 142 mmol/L (136-145) Potassium Level 4.1 mmol/L (3.5-5.1) Chloride Level 106 mmol/L (98-107) Carbon Dioxide Level 30 mmol/L (21-32) Anion Gap 6 (6-14) Blood Urea Nitrogen 22 mg/dL (8-26) Creatinine 1.0 mg/dL (0.7-1.3) Estimated GFR (Cockcroft-Gault) 74.1 BUN/Creatinine Ratio 22 (6-20) H Glucose Level 114 mg/dL (70-99) H Calcium Level 9.1 mg/dL (8.5-10.1) Total Bilirubin 0.7 mg/dL (0.2-1.0) Aspartate Amino Transferase (AST) 23 U/L (15-37) Alanine Aminotransferase (ALT) 41 U/L (16-63) Alkaline Phosphatase 58 U/L (46-116) Total Protein 6.3 g/dL (6.4-8.2) L Albumin 3.4 g/dL (3.4-5.0) Albumin/Globulin Ratio 1.2 (1.0-1.7) Valproic Acid Level 12 mcg/mL (50-100) L Valproic Acid Last Dose Date 01/14/2020 Valproic Acid Last Dose Time 2100 Current Medications: Meds: Current Medications Medications (Trade) Dose Ordered Sig/Jone Route PRN Reason Start Time Stop Time Status Last Admin Dose Admin Rivastigmine (Exelon) 1 patch DAILY TD 01/15/20 09:00 01/18/20 08:59 01/15/20 07:39 Memantine (Namenda) 5 mg DAILY PO 01/15/20 09:00 01/18/20 08:59 01/15/20 07:39 I have reviewed the current psychotropics carefully including drug interactions. Risk benefit ratio favors no change other than as noted in my dictated progress note. Diagnosis: Problems: (1) Impulse control disorder, unspecified (2) Lewy body dementia with behavioral disturbance (3) Anxiety disorder, unspecified (4) Major neurocognitive disorder (5) Major depressive disorder with psychotic features (6) Psychotic disorder ROGE HOGAN MD Jan 15, 2020 21:53
--- NOTE | 2020-01-15 23:42 | NUR ---
Pt has been in his room this shift. Meds were taken whole without difficulty at HS med pass pt was oriented pleasant and cooperative with no complaints or behaviors.
[2020-01-16 05:49] VITALS: BP 122/69
--- NOTE | 2020-01-16 06:55 | PDOC ---
Exam Note: Ceasar Note: This note is a late entry for 01/13/2020 covers elements not covered in my initial note. Subjective: The patient was evaluated face to face in the evening of 01/13/2020 with Juan C MAYES. The patient slept 5-1/4 hours previous night. The patient has not been sexually inappropriate or undressing himself in the hallway. He was somewhat agitated in the morning. Received Zyprexa. He has been quite agitated previous night. Nursing staff had called me middle of the night but he has done better with no sexual inappropriate behaviors during the day. He seemed little more confused. Review of Systems: No CV, , pulmonary, eye, ENT system symptoms on review. Mental Status Exam: Oriented to himself. He seemed little more confused. Insight and judgment, recent memory is impaired. Language function is intact. Mood and affect varies significantly during the day. Laboratory Data: Reviewed. Impression: Major neurocognitive disorder, probably Lewy body with delusion, depression, and behavioral disturbance. Anxiety disorder unspecified. Impulse control disorder unspecified. Rule out frontotemporal dementia. Plan: Continue the patients Seroquel, melatonin, Zyprexa p.r.n., Depakote, and trazodone. Make further adjustments as clinically indicated. Assessment: Vital Signs/I&O: Vital Signs Date Time Temp Pulse Resp B/P (MAP) Pulse Ox O2 Delivery O2 Flow Rate FiO2 01/16/20 05:49 97.6 61 16 122/69 (86) 97 01/13/20 16:12 Room Air I & O 01/15/20 01/15/20 01/16/20 15:00 23:00 07:00 Intake Total 720 ml 240 ml 120 ml Balance 720 ml 240 ml 120 ml Current Medications: Meds: Current Medications Medications (Trade) Dose Ordered Sig/Jone Route PRN Reason Start Time Stop Time Status Last Admin Dose Admin Rivastigmine (Exelon) 1 patch DAILY TD 01/15/20 09:00 01/18/20 08:59 01/15/20 07:39 Memantine (Namenda) 5 mg DAILY PO 01/15/20 09:00 01/18/20 08:59 01/15/20 07:39 I have reviewed the current psychotropics carefully including drug interactions. Risk benefit ratio favors no change other than as noted in my dictated progress note. Diagnosis: Problems: (1) Impulse control disorder, unspecified (2) Lewy body dementia with behavioral disturbance (3) Anxiety disorder, unspecified (4) Major neurocognitive disorder (5) Major depressive disorder with psychotic features (6) Psychotic disorder ROGE HOGAN MD Jan 16, 2020 06:55
--- NOTE | 2020-01-16 07:34 | PDOC ---
Exam Note: Ceasar Note: This note is a late entry for 01/14/2020 covers elements not covered in my initial note. Subjective: The patient was evaluated on telehealth rounds in the evening of 01/14/2020 with Reuben Stevenson RN. Nursing report was with Yanet MAYES. The patient slept 3-1/4 hours previous night. I was called around midnight. The patient was extremely psychotic, agitated, not sleeping, and violent. He had been given multiple p.r.n.s to no avail. He is actively psychotic. He is refusing all his psychotropics. He has had a fairly significant change in his mentation within the timeframe of a day again consistent with his diagnosis of Lewy body dementia. At one point, he was climbing up on the nursing station trying to get over the glass wall. Review of Systems: No CV, , pulmonary, eye, ENT system symptoms on review. Reliability poor. Mental Status Exam: Oriented to himself, at times situation. Speech is moderate latency. Often response is monosyllabic. Abstraction is fair. Computation is impaired. Language function is intact. Mood and affect is labile. Laboratory Data: Reviewed. Impression: Major neurocognitive disorder, Lewy body with delusion, depression, and behavioral disturbance. Anxiety disorder unspecified. Impulse control disorder unspecified. Rest unchanged. Plan: Given his diagnosis of Lewy body dementia, we will go ahead and start Exelon patch 4.6 mg a day and in 3 days increase to 9.5 mg a day and in another 3 days to 13.3 mg a day. We will go ahead and start Ativan IM scheduled 0.5 mg, Haldol 5 mg daily for the next 2 or 3 days to help stabilize his psychosis. We will initiate Namenda 5 mg daily for 3 days and 5 mg b.i.d. for 3 days and increase further thereafter. Continue rest unchanged for now. Assessment: Vital Signs/I&O: Vital Signs Date Time Temp Pulse Resp B/P (MAP) Pulse Ox O2 Delivery O2 Flow Rate FiO2 01/16/20 05:49 97.6 61 16 122/69 (86) 97 01/13/20 16:12 Room Air I & O 01/15/20 01/15/20 01/16/20 15:00 23:00 07:00 Intake Total 720 ml 240 ml 120 ml Balance 720 ml 240 ml 120 ml Current Medications: Meds: Current Medications Medications (Trade) Dose Ordered Sig/Jone Route PRN Reason Start Time Stop Time Status Last Admin Dose Admin Rivastigmine (Exelon) 1 patch DAILY TD 01/15/20 09:00 01/18/20 08:59 01/15/20 07:39 Memantine (Namenda) 5 mg DAILY PO 01/15/20 09:00 01/18/20 08:59 01/15/20 07:39 I have reviewed the current psychotropics carefully including drug interactions. Risk benefit ratio favors no change other than as noted in my dictated progress note. Diagnosis: Problems: (1) Impulse control disorder, unspecified (2) Lewy body dementia with behavioral disturbance (3) Anxiety disorder, unspecified (4) Major neurocognitive disorder (5) Major depressive disorder with psychotic features (6) Psychotic disorder ROGE HOGAN MD Jan 16, 2020 07:34
[2020-01-16] MEDS: RIVASTIGMINE 4.6MG PATCH. TD SCH (07:38)
[2020-01-16] MEDS: TAMSULOSIN 0.4 MG CAP.ER.24H. PO SCH (07:38)
[2020-01-16] MEDS: QUEtiapine 25 MG TABLET. PO SCH ×2 (07:38→19:45)
[2020-01-16] MEDS: MEMANTINE 5 MG TABLET. PO SCH (07:39)
[2020-01-16] MEDS: HALOPERIDOL LACT 5 MG/ML VIAL. IM SCH (07:39)
[2020-01-16] MEDS: LISINOPRIL 20 MG TABLET PO SCH (07:39)
[2020-01-16] MEDS: DIVALPROEX 125 MG CAP.SPRINK PO SCH ×2 (07:40→16:30)
--- NOTE | 2020-01-16 11:56 | NUR ---
GUANACO faxed over updates to Lindsey at [facility].
[2020-01-16 16:12] VITALS: BP 111/63
--- NOTE | 2020-01-16 18:01 | NUR ---
Pt up adl in room. Has been compliant with meds and cares. Quiet and withdrawn.
[2020-01-16] MEDS: MELATONIN 3 MG TABLET PO SCH (19:44)
--- NOTE | 2020-01-16 22:00 | PDOC ---
Exam Note: Ceasar Note: Please also refer to the separate dictated note~for this date of service dictated separately.~Patient seen individually. Discussed the patient with Nursing staff reviewed the chart.~Reviewed interim history and current functioning. Reviewed vital signs,~Labs/ Radiology~and current medications noted below. Continue current treatment with the changes noted in the dictated addendum note Assessment: Vital Signs/I&O: Vital Signs Date Time Temp Pulse Resp B/P (MAP) Pulse Ox O2 Delivery O2 Flow Rate FiO2 01/16/20 16:12 98.3 90 16 111/63 (79) 96 Room Air I & O 01/15/20 01/15/20 01/16/20 15:00 23:00 07:00 Intake Total 720 ml 240 ml 120 ml Balance 720 ml 240 ml 120 ml Current Medications: I have reviewed the current psychotropics carefully including drug interactions. Risk benefit ratio favors no change other than as noted in my dictated progress note. Diagnosis: Problems: (1) Impulse control disorder, unspecified (2) Lewy body dementia with behavioral disturbance (3) Anxiety disorder, unspecified (4) Major neurocognitive disorder (5) Major depressive disorder with psychotic features (6) Psychotic disorder ROGE HOGAN MD Jan 16, 2020 22:00
--- NOTE | 2020-01-16 23:30 | NUR ---
Pt has been in his room tonight. Hs meds taken whole without issue. He is oriented and offers no complaints. He has had no behaviors tonight.
[2020-01-17 06:36] VITALS: BP 149/84
--- NOTE | 2020-01-17 07:12 | PDOC ---
Exam Note: Ceasar Note: This note is a late entry for 01/15/2020 covers elements not covered in my initial note. Subjective: The patient was evaluated face to face in the evening 01/15/2020 with Aleah MAYES. The patient slept 9 hours previous night. He has been spending more time in his room. We have not given him any IM Haldol, Ativan, and he has been responding better to the oral psychotropics. Agitation and psychotic symptoms seem better than a couple of days back. Review of Systems: No CV, , pulmonary, eye, ENT system symptoms on review. Mental Status Exam: The patient appears much less disorganized, less psychotic as compared to a day earlier. No active suicidal or homicidal ideation. Memory remains somewhat impaired and he gets worse in the evening hours. Laboratory Data: Reviewed. Impression: Major neurocognitive disorder, Lewy body with delusion, depression, and behavioral disturbance. Anxiety disorder unspecified. Impulse control diso rder unspecified. Rest unchanged. Plan: Continue current psychotropics. We are adjusting the Exelon patch and Namenda as part of his psychotropics for the Lewy body dementia. Maintain Seroquel, melatonin, Zyprexa as p.r.n. and Depakote at 125 mg twice a day. Adjust further as clinically indicated. Assessment: Vital Signs/I&O: Vital Signs Date Time Temp Pulse Resp B/P (MAP) Pulse Ox O2 Delivery O2 Flow Rate FiO2 01/17/20 06:36 97.8 71 16 149/84 (105) 99 01/16/20 16:12 Room Air I & O 01/16/20 01/16/20 01/17/20 15:00 23:00 07:00 Intake Total 480 ml 360 ml Balance 480 ml 360 ml Current Medications: I have reviewed the current psychotropics carefully including drug interactions. Risk benefit ratio favors no change other than as noted in my dictated progress note. Diagnosis: Problems: (1) Impulse control disorder, unspecified (2) Lewy body dementia with behavioral disturbance (3) Anxiety disorder, unspecified (4) Major neurocognitive disorder (5) Major depressive disorder with psychotic features (6) Psychotic disorder ROGE HOGAN MD Jan 17, 2020 07:12
--- NOTE | 2020-01-17 07:25 | PDOC ---
Exam Note: Ceasar Note: This note is a late entry for 01/16/2020 covers elements not covered in my initial note. Subjective: The patient was evaluated on telehealth rounds in the evening of 01/16/2020 because of the COVID-19 pandemic restrictions with [facility] nursing [facility]. Nursing report was with Yanet MAYES. The patient slept 8 hours previous night. He has been doing better during the day today, less agitated, even in the evening less psychotic, coming out of his room, did well previous night. Review of Systems: No CV, , pulmonary, eye system symptoms on review. Reliability poor. Mental Status Exam: Oriented to himself, at times situation. Speech has some latency, coherent. He is pleasant, smiling as I met with him. He seemed not to remember certain things in the recent past and talked about that he had exposed himself earlier in the day and he knew it was wrong. In fact he has not exposed himself sexually today but that was two days back, and he seemed to have a vague recollection of that. Abstraction is fair. Computation is impaired. Language function is intact. Mood and affect is labile. Laboratory Data: Reviewed. Impression: Major neurocognitive disorder, Lewy body with delusion, depression, and behavioral disturbance. Anxiety disorder unspecified. Impulse control disorder unspecified. Rest unchanged. Plan: No change from initial note. Assessment: Vital Signs/I&O: Vital Signs Date Time Temp Pulse Resp B/P (MAP) Pulse Ox O2 Delivery O2 Flow Rate FiO2 01/17/20 06:36 97.8 71 16 149/84 (105) 99 01/16/20 16:12 Room Air I & O 01/16/20 01/16/20 01/17/20 15:00 23:00 07:00 Intake Total 480 ml 360 ml Balance 480 ml 360 ml Current Medications: I have reviewed the current psychotropics carefully including drug interactions. Risk benefit ratio favors no change other than as noted in my dictated progress note. Diagnosis: Problems: (1) Impulse control disorder, unspecified (2) Lewy body dementia with behavioral disturbance (3) Anxiety disorder, unspecified (4) Major neurocognitive disorder (5) Major depressive disorder with psychotic features (6) Psychotic disorder ROGE HOGAN MD Jan 17, 2020 07:25
[2020-01-17] MEDS: HALOPERIDOL LACT 5 MG/ML VIAL. IM SCH (09:00)
[2020-01-17] MEDS: DIVALPROEX 125 MG CAP.SPRINK PO SCH ×2 (09:55→17:02)
[2020-01-17] MEDS: MEMANTINE 5 MG TABLET. PO SCH (09:56)
[2020-01-17] MEDS: TAMSULOSIN 0.4 MG CAP.ER.24H. PO SCH (09:56)
[2020-01-17] MEDS: LISINOPRIL 20 MG TABLET PO SCH (09:56)
[2020-01-17] MEDS: QUEtiapine 25 MG TABLET. PO SCH ×2 (09:56→21:00)
[2020-01-17] MEDS: RIVASTIGMINE 4.6MG PATCH. TD SCH (09:57)
--- NOTE | 2020-01-17 11:43 | NUR ---
Pt is calm, cooperative, confused, and compliant. He wanders the unit for exercise. He is compliant with his medication and assessment. No inappropriate behavior noted thus far this shift.
[2020-01-17 16:18] VITALS: BP 153/84
[2020-01-17] MEDS ORDERED: CHOLECALCIFEROL (VITAMIN D3) 50,000 UNIT CAPSULE PO SCH (17:45)
[2020-01-17] MEDS: MELATONIN 3 MG TABLET PO SCH (21:00)
[2020-01-17] MEDS: traZODone 50 MG TABLET. PO PRN (21:27)
--- NOTE | 2020-01-17 21:47 | PDOC ---
Exam Note: Ceasar Note: Please also refer to the separate dictated note~for this date of service dictated separately.~Patient seen individually. Discussed the patient with Nursing staff reviewed the chart.~Reviewed interim history and current functioning. Reviewed vital signs,~Labs/ Radiology~and current medications noted below. Continue current treatment with the changes noted in the dictated addendum note Assessment: Vital Signs/I&O: Vital Signs Date Time Temp Pulse Resp B/P (MAP) Pulse Ox O2 Delivery O2 Flow Rate FiO2 01/17/20 21:37 01/17/20 16:18 76 18 153/84 (107) 01/16/20 16:12 Room Air I & O 01/16/20 01/16/20 01/17/20 15:00 23:00 07:00 Intake Total 480 ml 360 ml Balance 480 ml 360 ml Current Medications: I have reviewed the current psychotropics carefully including drug interactions. Risk benefit ratio favors no change other than as noted in my dictated progress note. Diagnosis: Problems: (1) Impulse control disorder, unspecified (2) Lewy body dementia with behavioral disturbance (3) Anxiety disorder, unspecified (4) Major neurocognitive disorder (5) Major depressive disorder with psychotic features (6) Psychotic disorder ROGE HOGAN MD Jan 17, 2020 21:47
--- NOTE | 2020-01-17 23:05 | NUR ---
Nursing Note Pt in room at shift change irritable, angry, naked and masturbating intermittently. Takes meds in ice cream with max encouragement , but tells me to get the HELL out of his room right after. Zydis and Traz given at HS and later was calm and compliant. Now in bed resting at this time.
[2020-01-18 07:06] VITALS: BP 131/75
[2020-01-18] MEDS: DIVALPROEX 125 MG CAP.SPRINK PO SCH ×2 (07:30→16:29)
[2020-01-18] MEDS: QUEtiapine 25 MG TABLET. PO SCH ×2 (08:43→20:25)
[2020-01-18] MEDS: LISINOPRIL 20 MG TABLET PO SCH (08:43)
[2020-01-18] MEDS: TAMSULOSIN 0.4 MG CAP.ER.24H. PO SCH (08:43)
[2020-01-18] MEDS: RIVASTIGMINE 9.5MG PATCH. TD SCH (08:44)
[2020-01-18] MEDS: CHOLECALCIFEROL (VITAMIN D3) 50,000 UNIT CAPSULE PO SCH (08:44)
[2020-01-18] MEDS: HALOPERIDOL LACT 5 MG/ML VIAL. IM SCH (09:00)
--- NOTE | 2020-01-18 11:08 | NUR ---
Nursing Note Pt irritable and agitated at times, states get the hell away from me when I enter the room. Difficulty redirecting him. Refused breakfast this am. Wanders the unit at times, and other times isolates to room.
--- NOTE | 2020-01-18 11:22 | NUR ---
WEEKLY ACTIVITY THERAPY NOTE Date of Admission:01/09 Date of AT Assessment: 01/10 Precipitating behaviors that initiated intake and admission:touched peer raised her shirt and touched her breasts, exposed himself from the waist down and soliciting peers to touch him, agitated Goal aimed:increase stress management/relaxation and self-esteem development skills Initial Goal: Pt will participate in at least three individual or group Activity Therapy sessions per week. Weekly progress towards goal: achieved, 5/3 Group participation level: 2 full, 1 mod, 2 min Weekly highlights: fully engaged and pleasant in group with exercises and brain game on Wednesday afternoon Behaviors observed: agitated when he couldn't hear the music, lost interest and left group on 01/10, [place], reading in his room, walks the halls briskly, needs reminders to wear mask appropriately Plan: no change to goal Beneficial adaptations: loud verbal cues, demonstrations
--- NOTE | 2020-01-18 12:53 | NUR ---
GUANACO contacted pt to update her on treatment team and how pt is doing. As it stands pt is eating 100% of meals and sleeping on average 7.5 hours per night. Pt lately has been very irritable, short-tempered and exhibiting highly sexual behaviors (e.g. masturbating, attempts to touch nursing). Pt has also been urinating on the unused bed in his room and needs encouragement to take his medications. Pt will start on Provera 2.5 mg TID then after three days increase to 5mg TID. Pt will also start on Depakote 250mg BID with labs and levels in three days. At this time, ELOS will be between 10 and 14 days.
--- NOTE | 2020-01-18 15:04 | TX PLAN ---
Interdisciplinary Tx Plan Admission Information Jan 10, 2020 at 20:09 Legal Status (on Admission): Voluntary DPOA/Guardian Name: Magda Garcia Contact Other Contact Name: Hipolito Other Contact Verified Code Status: DNR Allergies: Coded Allergies: cefadroxil (Verified Allergy, Unknown, 01/10/20) ondansetron (Verified Allergy, Unknown, 01/10/20) Diagnoses Primary Diagnosis: Lewy Body with delusions and behavioral disturbance Reasons for Admission: Agitated, Poor impulse control, Other Problem in Patient's Words: This is just a phase he is going through...part of his dx I guess. Additional Admission Comments: According to the intake, pt touched a peer and raised her shirt to touch her breasts. Pt is exposing himself from waist down and soliciting peers to touch him. Pt is agitated, combative with staff and urinating in the hallway. Problems Active Problems: Sexually inappropriate behaviors Urinating in the hallway Inactive Problems: Mostly medication compliant Pt Strengths/Limitations Ability for [place]: Poor Cognitive Functioning/Ability: Poor Communication Skills/Ability: Fair Financial Resources: Fair Insight/Judgement: Poor Intellectual Ability: Poor Physical Health: Fair Social Skills: Poor Stability in Family: Good Stability in School/Work: Poor Verbal Skills: Fair Discharge Criteria Discharge Criteria: Able meet basic life need, Adequate arrangements @DC, Improved behavior, Improved mood/thought Preliminary Discharge Plan Preliminary DC Plan: Current Living Arrange. Special Precautions Fall Risk: Low Initial D/C Plan Pt to discharge to [facility] once stable. Identified Discharge Needs: Psychiatric services Currently Utilized Resources Currently Utilized Resources/P: Primary Care Physician Referrals Community Resources: Will send out referral for psychiatric recommendations Identified Problems/Hx/Goals Objectives/Short-Term Goals Short Term Goals: Control abnormal behavior, Medication Stabilization, Monitor Med Effects, Other Short Term Goals in Patient's: N/A Interventions/Frequency Staff Interventions/Frequency&: Psychiatrist to assess pt at least 3x per week. Social Work to assess pt at least 2x per week. 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 Education: Pt graduated High school (12th grade) then continued to get his B.S. in Accounting and Business Mgmt Community Follow-up Continue to see PCP. Treatment Plan Explained Patient/Interactive Media Project Manager had this treatment plan explained to him/her as indicated by the signature below and has been given the opportunity to ask questions and make suggestions: Date: Patient/Interactive Media Project Manager Signature: Patient/Interactive Media Project Manager Decline: No Status Update Update Please note that the initial treatment team was on , January 11, 2020. Currently pt is eating 100% of meals and sleeping on average 7.5 hours per night. Pt lately has been very irritable, short-tempered and exhibiting highly sexual behaviors (e.g. masturbating, attempts to touch nursing). Pt has also been urinating on the unused bed in his room and needs encouragement to take his medications. Pt will start on Provera 2.5 mg TID then after three days increase to 5mg TID. Pt will also start on Depakote 250mg BID with labs and levels in three days. At this time, ELOS will be between 10 and 14 days. STACIE MAN Jan 18, 2020 15:04
[2020-01-18 16:28] VITALS: BP 134/72
[2020-01-18] MEDS: traZODone 50 MG TABLET. PO PRN (20:25)
[2020-01-18] MEDS: MELATONIN 3 MG TABLET PO SCH (20:25)
[2020-01-18] MEDS: MEMANTINE 5 MG TABLET. PO SCH (20:25)
--- NOTE | 2020-01-18 21:55 | PDOC ---
Exam Note: Ceasar Note: Please also refer to the separate dictated note~for this date of service dictated separately.~Patient seen individually. Discussed the patient with Nursing staff reviewed the chart.~Reviewed interim history and current functioning. Reviewed vital signs,~Labs/ Radiology~and current medications noted below. Continue current treatment with the changes noted in the dictated addendum note Assessment: Vital Signs/I&O: Vital Signs Date Time Temp Pulse Resp B/P (MAP) Pulse Ox O2 Delivery O2 Flow Rate FiO2 01/18/20 16:28 97.5 83 20 134/72 (92) 99 01/16/20 16:12 Room Air I & O 01/17/20 01/17/20 01/18/20 15:00 23:00 07:00 Intake Total 600 ml 120 ml Balance 600 ml 120 ml Current Medications: Meds: Current Medications Medications (Trade) Dose Ordered Sig/Jone Route PRN Reason Start Time Stop Time Status Last Admin Dose Admin Memantine (Namenda) 5 mg BID PO 01/18/20 21:00 01/18/20 20:25 Vitamin D (Vitamin D3) 50,000 unit WEEKLY PO 01/18/20 09:00 01/18/20 08:44 Divalproex Sodium (Depakote Sprinkles) 250 mg BIDBFRMEAL PO 01/18/20 16:30 01/18/20 16:29 Medroxyprogesterone Acetate (Provera) 2.5 mg DAILY PO 01/18/20 16:00 01/21/20 08:00 01/18/20 16:29 I have reviewed the current psychotropics carefully including drug interactions. Risk benefit ratio favors no change other than as noted in my dictated progress note. Diagnosis: Problems: (1) Impulse control disorder, unspecified (2) Lewy body dementia with behavioral disturbance (3) Anxiety disorder, unspecified (4) Major neurocognitive disorder (5) Major depressive disorder with psychotic features (6) Psychotic disorder ROGE HOGAN MD Jan 18, 2020 21:55
--- NOTE | 2020-01-18 22:43 | NUR ---
Pt has been highly disorganized today. Pt undressing repeatedly, onesie placed. Pt agitated with onesie. Pt delusional and hallucinating, stated that he heard Ray Barbosa through the ceiling speakers. Pt refused his HS medications. PRN Zyprexa administered in glass of water and consumed. Pt later compliant with HS medications. PRN Trazodone administered. Pt refusing to keep his mask on or stay in his room. Pt transferred to the [facility] where he is currently sitting calmly.
--- NOTE | 2020-01-19 03:31 | NUR ---
Nursing Note Pt agitated placed in the private hallway. Pounding on the linder and windows. Intrusive, zyprexa given. Now resting.
[2020-01-19 06:24] VITALS: BP 114/63
--- NOTE | 2020-01-19 06:54 | PDOC ---
Exam Note: Ceasar Note: This note is a late entry for 01/17/2020 covers elements not covered in my initial note. Subjective: The patient was evaluated face to face in the evening of 01/17/2020 with Ashley MAYES. The patient slept 8 hours previous night. He did well previous night, had a good day, pacing repeatedly and undressing himself as I met with him in his room. He was totally undressed. Per nursing report he has been masturbating himself incessantly. He believes [facility] is at [email or web address]. Other times he seems less confused. Review of Systems: No CV, , pulmonary, eye system symptoms on review. Reliability poor. Mental Status Exam: Oriented to himself. He is easily distracted, anxious, less agitated. Speech is coherent, has some latency. Abstraction is fair. Computation is impaired. Language function is intact. Mood and affect is labile. Laboratory Data: Reviewed. Impression: Major neurocognitive disorder, Lewy body with delusion, depression, and behavioral disturbance. Anxiety disorder unspecified. Impulse control disorder unspecified. Rest unchanged. Plan: No change from initial note. Assessment: Vital Signs/I&O: Vital Signs Date Time Temp Pulse Resp B/P (MAP) Pulse Ox O2 Delivery O2 Flow Rate FiO2 01/19/20 06:24 97.4 89 20 114/63 (80) 98 01/16/20 16:12 Room Air I & O 01/18/20 01/18/20 01/19/20 15:00 23:00 07:00 Intake Total 240 ml 720 ml Balance 240 ml 720 ml Current Medications: Meds: Current Medications Medications (Trade) Dose Ordered Sig/Jone Route PRN Reason Start Time Stop Time Status Last Admin Dose Admin Memantine (Namenda) 5 mg BID PO 01/18/20 21:00 01/18/20 20:25 Vitamin D (Vitamin D3) 50,000 unit WEEKLY PO 01/18/20 09:00 01/18/20 08:44 Divalproex Sodium (Depakote Sprinkles) 250 mg BIDBFRMEAL PO 01/18/20 16:30 01/18/20 16:29 Medroxyprogesterone Acetate (Provera) 2.5 mg DAILY PO 01/18/20 16:00 01/21/20 08:00 01/18/20 16:29 I have reviewed the current psychotropics carefully including drug interactions. Risk benefit ratio favors no change other than as noted in my dictated progress note. Diagnosis: Problems: (1) Impulse control disorder, unspecified (2) Lewy body dementia with behavioral disturbance (3) Anxiety disorder, unspecified (4) Major neurocognitive disorder (5) Major depressive disorder with psychotic features (6) Psychotic disorder ROGE HOGAN MD Jan 19, 2020 06:54
--- NOTE | 2020-01-19 07:16 | PDOC ---
Exam Note: Ceasar Note: This note is a late entry for 01/18/2020 covers elements not covered in my initial note. Subjective: The patient was evaluated face to face in the morning of 01/18/2020 for treatment team meeting with Lori (social service staff), Madisyn, activity therapy, and Adeline Nguyen RN and was also seen individually in the evening. He was delusional, masturbating previous night. He has not been howling at the [place]. He has been irritable at dinner time. Valproic acid level is 24, which is an improvement from the 12. Previously he urinated on the floor in the morning and previous night. Review of Systems: No CV, , pulmonary, eye system symptoms on review. Mental Status Exam: Reasonably oriented. Speech coherent. Abstraction is fair. Computation is impaired. Language function is intact. Mood and affect is labile. Laboratory Data: Reviewed. Impression: Major neurocognitive disorder, Lewy body with delusion, depression, and behavioral disturbance. Anxiety disorder unspecified. Impulse control disorder unspecified. Rest unchanged. Plan: We will start Provera 2.5 mg a day for 3 day and 5 mg a day given his marked sexually disruptive behaviors. Depakote 125 mg twice a day, level subtherapeutic increased to 250 mg twice a day. Check CBC, CMP, valproic acid level in 3 days. Continue rest of the psychotropics unchanged. Assessment: Vital Signs/I&O: Vital Signs Date Time Temp Pulse Resp B/P (MAP) Pulse Ox O2 Delivery O2 Flow Rate FiO2 01/19/20 06:24 97.4 89 20 114/63 (80) 98 01/16/20 16:12 Room Air I & O 01/18/20 01/18/20 01/19/20 15:00 23:00 07:00 Intake Total 240 ml 720 ml Balance 240 ml 720 ml Current Medications: Meds: Current Medications Medications (Trade) Dose Ordered Sig/Jone Route PRN Reason Start Time Stop Time Status Last Admin Dose Admin Memantine (Namenda) 5 mg BID PO 01/18/20 21:00 01/18/20 20:25 Vitamin D (Vitamin D3) 50,000 unit WEEKLY PO 01/18/20 09:00 01/18/20 08:44 Divalproex Sodium (Depakote Sprinkles) 250 mg BIDBFRMEAL PO 01/18/20 16:30 01/18/20 16:29 Medroxyprogesterone Acetate (Provera) 2.5 mg DAILY PO 01/18/20 16:00 01/21/20 08:00 01/18/20 16:29 I have reviewed the current psychotropics carefully including drug interactions. Risk benefit ratio favors no change other than as noted in my dictated progress note. Diagnosis: Problems: (1) Impulse control disorder, unspecified (2) Lewy body dementia with behavioral disturbance (3) Anxiety disorder, unspecified (4) Major neurocognitive disorder (5) Major depressive disorder with psychotic features (6) Psychotic disorder ROGE HOGAN MD Jan 19, 2020 07:16
[2020-01-19] MEDS: LISINOPRIL 20 MG TABLET PO SCH (08:16)
[2020-01-19] MEDS: RIVASTIGMINE 9.5MG PATCH. TD SCH (08:16)
[2020-01-19] MEDS: MEMANTINE 5 MG TABLET. PO SCH ×2 (08:16→20:02)
[2020-01-19] MEDS: DIVALPROEX 125 MG CAP.SPRINK PO SCH ×2 (08:16→16:30)
[2020-01-19] MEDS: QUEtiapine 25 MG TABLET. PO SCH ×2 (08:17→20:02)
[2020-01-19] MEDS: HALOPERIDOL LACT 5 MG/ML VIAL. IM SCH (08:17)
[2020-01-19] MEDS: TAMSULOSIN 0.4 MG CAP.ER.24H. PO SCH (08:17)
--- NOTE | 2020-01-19 14:09 | NUR ---
GUANACO contacted pt Magda to notify her that the unit as of now is on hold as a pt tested as positive; so until we get more direction from the health department, the Behavioral Unit will do no admissions in and no discharges out. We are hopefully to hear back today if not Wednesday. Pt questioned if pt was near the positive pt as they are on the same unit and GUANACO was not able to deny or confirm this. GUANACO will follow up with the family once next steps has been determined.
[2020-01-19 16:53] VITALS: BP 140/70
--- NOTE | 2020-01-19 17:13 | NUR ---
Pt asked to return to room several times as he was not wearing mask. When attempting to take pt to shower, pt was resistive to leaving room. Pt has redirected for the most part. Has taken meds with encouragement.
[2020-01-19] MEDS: MELATONIN 3 MG TABLET PO SCH (20:02)
[2020-01-19] MEDS: traZODone 50 MG TABLET. PO PRN (20:02)
[2020-01-19] MEDS: MIRTAZAPINE 7.5 MG TABLET. PO SCH (20:05)
--- NOTE | 2020-01-19 21:55 | PDOC ---
Exam Note: Ceasar Note: Please also refer to the separate dictated note~for this date of service dictated separately.~Patient seen individually. Discussed the patient with Nursing staff reviewed the chart.~Reviewed interim history and current functioning. Reviewed vital signs,~Labs/ Radiology~and current medications noted below. Continue current treatment with the changes noted in the dictated addendum note Assessment: Vital Signs/I&O: Vital Signs Date Time Temp Pulse Resp B/P (MAP) Pulse Ox O2 Delivery O2 Flow Rate FiO2 01/19/20 16:53 98.0 80 16 140/70 (93) 93 01/16/20 16:12 Room Air I & O 01/18/20 01/18/20 01/19/20 15:00 23:00 07:00 Intake Total 240 ml 720 ml Balance 240 ml 720 ml Current Medications: Meds: Current Medications Medications (Trade) Dose Ordered Sig/Jone Route PRN Reason Start Time Stop Time Status Last Admin Dose Admin Mirtazapine (Remeron) 7.5 mg QHS PO 01/19/20 21:00 01/19/20 20:05 I have reviewed the current psychotropics carefully including drug interactions. Risk benefit ratio favors no change other than as noted in my dictated progress note. Diagnosis: Problems: (1) Impulse control disorder, unspecified (2) Lewy body dementia with behavioral disturbance (3) Anxiety disorder, unspecified (4) Major neurocognitive disorder (5) Major depressive disorder with psychotic features (6) Psychotic disorder ROGE HOGAN MD Jan 19, 2020 21:55
[2020-01-20] MEDS: traZODone 50 MG TABLET. PO PRN ×2 (00:45→20:33)
--- NOTE | 2020-01-20 01:54 | NUR ---
Nursing Note The patient was located in his room for his assessment and medication pass. The patient was disorganized and displayed difficultly tracking during conversation. The patient was compliant with his medication and assessment. The patient received PRN Trazodone@2002 R/T restless and insomnia the previous night. The patient became restless later in the night and was given PRN Trazodone@0045 per PRN order. The patient is currently located in the quiet evans R/T restlessness and agitation.
[2020-01-20 06:32] VITALS: BP 133/79
[2020-01-20] MEDS: RIVASTIGMINE 9.5MG PATCH. TD SCH (07:52)
[2020-01-20] MEDS: TAMSULOSIN 0.4 MG CAP.ER.24H. PO SCH (07:53)
[2020-01-20] MEDS: LISINOPRIL 20 MG TABLET PO SCH (07:53)
[2020-01-20] MEDS: MEMANTINE 5 MG TABLET. PO SCH ×2 (07:53→20:28)
[2020-01-20] MEDS: DIVALPROEX 125 MG CAP.SPRINK PO SCH ×2 (07:53→16:30)
[2020-01-20] MEDS: QUEtiapine 25 MG TABLET. PO SCH ×2 (07:53→20:28)
[2020-01-20 15:47] VITALS: BP 168/78
--- NOTE | 2020-01-20 16:05 | NUR ---
Pt up adl in room. Redirected to room x2 as pt was in evans without mask. Took meds with resistance.
[2020-01-20] MEDS: MIRTAZAPINE 7.5 MG TABLET. PO SCH (20:28)
[2020-01-20] MEDS: MELATONIN 3 MG TABLET PO SCH (20:28)
--- NOTE | 2020-01-20 21:53 | PDOC ---
Exam Note: Ceasar Note: Please also refer to the separate dictated note~for this date of service dictated separately.~Patient seen individually. Discussed the patient with Nursing staff reviewed the chart.~Reviewed interim history and current functioning. Reviewed vital signs,~Labs/ Radiology~and current medications noted below. Continue current treatment with the changes noted in the dictated addendum note Assessment: Vital Signs/I&O: Vital Signs Date Time Temp Pulse Resp B/P (MAP) Pulse Ox O2 Delivery O2 Flow Rate FiO2 01/20/20 15:47 98.0 76 16 168/78 (108) 98 Room Air I & O 01/19/20 01/19/20 01/20/20 15:00 23:00 07:00 Intake Total 360 ml 360 ml Balance 360 ml 360 ml Current Medications: I have reviewed the current psychotropics carefully including drug interactions. Risk benefit ratio favors no change other than as noted in my dictated progress note. Diagnosis: Problems: (1) Impulse control disorder, unspecified (2) Lewy body dementia with behavioral disturbance (3) Anxiety disorder, unspecified (4) Major neurocognitive disorder (5) Major depressive disorder with psychotic features (6) Psychotic disorder ROGE HOGAN MD Jan 20, 2020 21:53
--- NOTE | 2020-01-20 23:44 | NUR ---
Nursing Note The patient was located in his room for his assessment and medication pass. the patient was calm and cooperative with his assessment and medication pass. The patient took his medication whole. the patient received PRN Trazodone with his HS medication R/T restless and insomnia the previous Night. The patient is currently sleeping in his room.
[2020-01-21 05:43] VITALS: BP 155/88
[2020-01-21] MEDS: LISINOPRIL 20 MG TABLET PO SCH (07:31)
[2020-01-21] MEDS: DIVALPROEX 125 MG CAP.SPRINK PO SCH ×2 (07:31→16:30)
[2020-01-21] MEDS: MEMANTINE 5 MG TABLET. PO SCH ×2 (07:31→22:00)
[2020-01-21] MEDS: TAMSULOSIN 0.4 MG CAP.ER.24H. PO SCH (07:31)
[2020-01-21] MEDS: QUEtiapine 25 MG TABLET. PO SCH ×2 (07:31→22:00)
[2020-01-21] MEDS: medroxyPROGESTERone 5 MG TABLET PO SCH (07:34)
[2020-01-21] MEDS: RIVASTIGMINE 13.3MG PATCH. TD SCH (07:35)
[2020-01-21 09:07] LABS: BASO % 0 % (0-3); EOS # 0.1 x10^3/uL (0.0-0.7); EOS % 1 % (0-3); HEMATOCRIT 40.4 % (39.0-53.0); HEMOGLOBIN 13.6 g/dL (13.0-17.5); LYMPH # 1.2 x10^3/uL (1.0-4.8); LYMPH % 14 % (24-48); MEAN CORPUSCULAR HEMOGLOBIN 30 pg (25-35); MEAN CORPUSCULAR HGB CONC 34 g/dL (31-37); MEAN CORPUSCULAR VOLUME 90 fL (79-100); MONO # 1.1 x10^3/uL (0.0-1.1); MONO % 12 % (0-9); NEUT # 6.4 x10^3uL (1.8-7.7); NEUT % 72 % (31-73); PLATELET COUNT 288 x10^3/uL (140-400); RED BLOOD COUNT 4.46 x10^6/uL (4.30-5.70); RED CELL DISTRIBUTION WIDTH 14.3 % (11.5-14.5); WHITE BLOOD COUNT 8.9 x10^3/uL (4.0-11.0)
[2020-01-21 09:22] LABS: ALBUMIN 3.3 g/dL (3.4-5.0); ALK PHOS 61 U/L (46-116); ALT (SGPT) 24 U/L (16-63); ANION GAP 9 (6-14); AST (SGOT) 12 U/L (15-37); BLOOD UREA NITROGEN 26 mg/dL (8-26); BUN/CREATININE RATIO 37 (6-20); CALCIUM 9.1 mg/dL (8.5-10.1); CARBON DIOXIDE 27 mmol/L (21-32); CHLORIDE 109 mmol/L (98-107); CREATININE 0.7 mg/dL (0.7-1.3); GFR 111.8; GLUCOSE 106 mg/dL (70-99); POTASSIUM 4.1 mmol/L (3.5-5.1); SODIUM 145 mmol/L (136-145); TOTAL BILIRUBIN 0.5 mg/dL (0.2-1.0); TOTAL PROTEIN 6.6 g/dL (6.4-8.2)
[2020-01-21 09:30] LABS: VAL ACID 38 mcg/mL (50-100)
[2020-01-21 15:44] VITALS: BP 134/78
--- NOTE | 2020-01-21 16:51 | NUR ---
Pt up adl in room. Has been quiet, withdrawn and compliant with meds and cares.
--- NOTE | 2020-01-21 21:59 | PDOC ---
Exam Note: Ceasar Note: Please also refer to the separate dictated note~for this date of service dictated separately.~Patient seen individually. Discussed the patient with Nursing staff reviewed the chart.~Reviewed interim history and current functioning. Reviewed vital signs,~Labs/ Radiology~and current medications noted below. Continue current treatment with the changes noted in the dictated addendum note Assessment: Vital Signs/I&O: Vital Signs Date Time Temp Pulse Resp B/P (MAP) Pulse Ox O2 Delivery O2 Flow Rate FiO2 01/21/20 20:47 98.4 96 01/21/20 15:44 73 18 134/78 (96) Room Air I & O 01/20/20 01/20/20 01/21/20 15:00 23:00 07:00 Intake Total 240 ml 240 ml 120 ml Balance 240 ml 240 ml 120 ml Labs: Laboratory Tests Test 01/21/20 08:05 White Blood Count 8.9 x10^3/uL (4.0-11.0) Red Blood Count 4.46 x10^6/uL (4.30-5.70) Hemoglobin 13.6 g/dL (13.0-17.5) Hematocrit 40.4 % (39.0-53.0) Mean Corpuscular Volume 90 fL (79-100) Mean Corpuscular Hemoglobin 30 pg (25-35) Mean Corpuscular Hemoglobin Concent 34 g/dL (31-37) Red Cell Distribution Width 14.3 % (11.5-14.5) Platelet Count 288 x10^3/uL (140-400) Neutrophils (%) (Auto) 72 % (31-73) Lymphocytes (%) (Auto) 14 % (24-48) L Monocytes (%) (Auto) 12 % (0-9) H Eosinophils (%) (Auto) 1 % (0-3) Basophils (%) (Auto) 0 % (0-3) Neutrophils # (Auto) 6.4 x10^3uL (1.8-7.7) Lymphocytes # (Auto) 1.2 x10^3/uL (1.0-4.8) Monocytes # (Auto) 1.1 x10^3/uL (0.0-1.1) Eosinophils # (Auto) 0.1 x10^3/uL (0.0-0.7) Basophils # (Auto) 0.0 x10^3/uL (0.0-0.2) Sodium Level 145 mmol/L (136-145) Potassium Level 4.1 mmol/L (3.5-5.1) Chloride Level 109 mmol/L (98-107) H Carbon Dioxide Level 27 mmol/L (21-32) Anion Gap 9 (6-14) Blood Urea Nitrogen 26 mg/dL (8-26) Creatinine 0.7 mg/dL (0.7-1.3) Estimated GFR (Cockcroft-Gault) 111.8 BUN/Creatinine Ratio 37 (6-20) H Glucose Level 106 mg/dL (70-99) H Calcium Level 9.1 mg/dL (8.5-10.1) Total Bilirubin 0.5 mg/dL (0.2-1.0) Aspartate Amino Transferase (AST) 12 U/L (15-37) L Alanine Aminotransferase (ALT) 24 U/L (16-63) Alkaline Phosphatase 61 U/L (46-116) Ammonia < 10 mcmol/L (11-34) L Total Protein 6.6 g/dL (6.4-8.2) Albumin 3.3 g/dL (3.4-5.0) L Albumin/Globulin Ratio 1.0 (1.0-1.7) Valproic Acid Level 38 mcg/mL (50-100) L Valproic Acid Last Dose Date 01/20/20 Valproic Acid Last Dose Time 2100 Current Medications: Meds: Current Medications Medications (Trade) Dose Ordered Sig/Jone Route PRN Reason Start Time Stop Time Status Last Admin Dose Admin Rivastigmine (Exelon 13.3mg) 1 patch DAILY TD 01/21/20 09:00 01/21/20 07:35 Medroxyprogesterone Acetate (Provera) 5 mg DAILY PO 01/21/20 09:00 01/21/20 07:34 I have reviewed the current psychotropics carefully including drug interactions. Risk benefit ratio favors no change other than as noted in my dictated progress note. Diagnosis: Problems: (1) Impulse control disorder, unspecified (2) Lewy body dementia with behavioral disturbance (3) Anxiety disorder, unspecified (4) Major neurocognitive disorder (5) Major depressive disorder with psychotic features (6) Psychotic disorder ROGE HOGAN MD Jan 21, 2020 21:59
[2020-01-21] MEDS: MIRTAZAPINE 7.5 MG TABLET. PO SCH (22:00)
[2020-01-21] MEDS: MELATONIN 3 MG TABLET PO SCH (22:00)
--- NOTE | 2020-01-22 00:40 | NUR ---
Nursing Note The patient was drowsy early in this shift. The patient was easy to arouse when approached for his assessment and medication pass. The patient was irritable during interactions with this nurse. The patient was able to take his medication whole. The patient is currently awake laying in his bed.
[2020-01-22] MEDS: traZODone 50 MG TABLET. PO PRN (01:09)
--- NOTE | 2020-01-22 05:48 | NUR ---
Nursing Note The patient was given PRN Trazodone@0109 per PRN order. The patient is currently sleeping in his room.
[2020-01-22 05:50] VITALS: BP 147/83
--- NOTE | 2020-01-22 06:54 | PDOC ---
Exam Note: Ceasar Note: This note is a late entry for 01/19/2020 covers elements not covered in my initial note. Subjective: The patient was evaluated on telehealth rounds in the evening of 01/19/2020 with Rocio nursing aid as one of the patients on the unit has tested positive for COVID-19 and unit is on a lockdown with no admission and discharges. That is the reason I am doing telehealth rounds to minimize any further spread of the infection. Nursing report with Yanet MAYES. He slept 1 hour previous night. He was in his room in the morning, and then got out. He has been anxious, restless, and paranoid. He believes he has been ejected from here. Review of Systems: No CV, , pulmonary, eye system symptoms on review. Reliability poor. Mental Status Exam: He is oriented to himself. He is less fixated on undressing himself. Insight and judgment, recent and remote memory, attention and concentration, fund of knowledge is poor consistent with his diagnoses. Laboratory Data: Reviewed. Impression: Major neurocognitive disorder, Lewy body with delusion, depression, and behavioral disturbance. Anxiety disorder unspecified. Impulse control disorder unspecified. Rest unchanged. Plan: Discontinue IM Haldol, Ativan. Start Remeron 7.5 mg h.s. given his marked insomnia. Rest unchanged for now. He did receive trazodone x2 and Zyprexa x2 previous night but still slept just 1 hour and that is the reason we are adding Remeron. Assessment: Vital Signs/I&O: Vital Signs Date Time Temp Pulse Resp B/P (MAP) Pulse Ox O2 Delivery O2 Flow Rate FiO2 01/22/20 05:50 98.0 70 16 147/83 (104) 99 01/21/20 15:44 Room Air I & O 01/21/20 01/21/20 01/22/20 15:00 23:00 07:00 Intake Total 240 ml 240 ml Balance 240 ml 240 ml Labs: Laboratory Tests Test 01/21/20 08:05 White Blood Count 8.9 x10^3/uL (4.0-11.0) Red Blood Count 4.46 x10^6/uL (4.30-5.70) Hemoglobin 13.6 g/dL (13.0-17.5) Hematocrit 40.4 % (39.0-53.0) Mean Corpuscular Volume 90 fL (79-100) Mean Corpuscular Hemoglobin 30 pg (25-35) Mean Corpuscular Hemoglobin Concent 34 g/dL (31-37) Red Cell Distribution Width 14.3 % (11.5-14.5) Platelet Count 288 x10^3/uL (140-400) Neutrophils (%) (Auto) 72 % (31-73) Lymphocytes (%) (Auto) 14 % (24-48) L Monocytes (%) (Auto) 12 % (0-9) H Eosinophils (%) (Auto) 1 % (0-3) Basophils (%) (Auto) 0 % (0-3) Neutrophils # (Auto) 6.4 x10^3uL (1.8-7.7) Lymphocytes # (Auto) 1.2 x10^3/uL (1.0-4.8) Monocytes # (Auto) 1.1 x10^3/uL (0.0-1.1) Eosinophils # (Auto) 0.1 x10^3/uL (0.0-0.7) Basophils # (Auto) 0.0 x10^3/uL (0.0-0.2) Sodium Level 145 mmol/L (136-145) Potassium Level 4.1 mmol/L (3.5-5.1) Chloride Level 109 mmol/L (98-107) H Carbon Dioxide Level 27 mmol/L (21-32) Anion Gap 9 (6-14) Blood Urea Nitrogen 26 mg/dL (8-26) Creatinine 0.7 mg/dL (0.7-1.3) Estimated GFR (Cockcroft-Gault) 111.8 BUN/Creatinine Ratio 37 (6-20) H Glucose Level 106 mg/dL (70-99) H Calcium Level 9.1 mg/dL (8.5-10.1) Total Bilirubin 0.5 mg/dL (0.2-1.0) Aspartate Amino Transferase (AST) 12 U/L (15-37) L Alanine Aminotransferase (ALT) 24 U/L (16-63) Alkaline Phosphatase 61 U/L (46-116) Ammonia < 10 mcmol/L (11-34) L Total Protein 6.6 g/dL (6.4-8.2) Albumin 3.3 g/dL (3.4-5.0) L Albumin/Globulin Ratio 1.0 (1.0-1.7) Valproic Acid Level 38 mcg/mL (50-100) L Valproic Acid Last Dose Date 01/20/20 Valproic Acid Last Dose Time 2100 Current Medications: Meds: Current Medications Medications (Trade) Dose Ordered Sig/Jone Route PRN Reason Start Time Stop Time Status Last Admin Dose Admin Rivastigmine (Exelon 13.3mg) 1 patch DAILY TD 01/21/20 09:00 01/21/20 07:35 Medroxyprogesterone Acetate (Provera) 5 mg DAILY PO 01/21/20 09:00 01/21/20 07:34 I have reviewed the current psychotropics carefully including drug interactions. Risk benefit ratio favors no change other than as noted in my dictated progress note. Diagnosis: Problems: (1) Impulse control disorder, unspecified (2) Lewy body dementia with behavioral disturbance (3) Anxiety disorder, unspecified (4) Major neurocognitive disorder (5) Major depressive disorder with psychotic features (6) Psychotic disorder ROGE HOGAN MD Jan 22, 2020 06:54
--- NOTE | 2020-01-22 07:09 | PDOC ---
Exam Note: Ceasar Note: This note is a late entry for 01/20/2020 covers elements not covered in my initial note. Subjective: The patient was evaluated on telehealth rounds in the evening of 01/20/2020 with Yarelis MAYES as one of the patients on the unit has tested positive for COVID-19 and unit is on a lockdown with no admission and dis charges. That is the reason I am doing telehealth rounds to minimize any further spread of the infection. Nursing report with Yanet MAYES. He slept 2- 1/2 hours previous night. He was quite disorganized previous night. He went to bed at 3 a.m. Review of Systems: No CV, , pulmonary, eye system symptoms on review. Mental Status Exam: Reasonably oriented. The patients cognition does seem to vary significantly during the day consistent with his Lewy body dementia. Abstraction is fair. Computation is impaired. Language function is intact. No suicidal or homicidal ideation. Laboratory Data: Reviewed. Impression: Major neurocognitive disorder, Lewy body with delusion, depression, and behavioral disturbance. Anxiety disorder unspecified. Impulse control disorder unspecified. Rest unchanged. Plan: No change from initial note. Assessment: Vital Signs/I&O: Vital Signs Date Time Temp Pulse Resp B/P (MAP) Pulse Ox O2 Delivery O2 Flow Rate FiO2 01/22/20 05:50 98.0 70 16 147/83 (104) 99 01/21/20 15:44 Room Air I & O 01/21/20 01/21/20 01/22/20 15:00 23:00 07:00 Intake Total 240 ml 240 ml Balance 240 ml 240 ml Labs: Laboratory Tests Test 01/21/20 08:05 White Blood Count 8.9 x10^3/uL (4.0-11.0) Red Blood Count 4.46 x10^6/uL (4.30-5.70) Hemoglobin 13.6 g/dL (13.0-17.5) Hematocrit 40.4 % (39.0-53.0) Mean Corpuscular Volume 90 fL (79-100) Mean Corpuscular Hemoglobin 30 pg (25-35) Mean Corpuscular Hemoglobin Concent 34 g/dL (31-37) Red Cell Distribution Width 14.3 % (11.5-14.5) Platelet Count 288 x10^3/uL (140-400) Neutrophils (%) (Auto) 72 % (31-73) Lymphocytes (%) (Auto) 14 % (24-48) L Monocytes (%) (Auto) 12 % (0-9) H Eosinophils (%) (Auto) 1 % (0-3) Basophils (%) (Auto) 0 % (0-3) Neutrophils # (Auto) 6.4 x10^3uL (1.8-7.7) Lymphocytes # (Auto) 1.2 x10^3/uL (1.0-4.8) Monocytes # (Auto) 1.1 x10^3/uL (0.0-1.1) Eosinophils # (Auto) 0.1 x10^3/uL (0.0-0.7) Basophils # (Auto) 0.0 x10^3/uL (0.0-0.2) Sodium Level 145 mmol/L (136-145) Potassium Level 4.1 mmol/L (3.5-5.1) Chloride Level 109 mmol/L (98-107) H Carbon Dioxide Level 27 mmol/L (21-32) Anion Gap 9 (6-14) Blood Urea Nitrogen 26 mg/dL (8-26) Creatinine 0.7 mg/dL (0.7-1.3) Estimated GFR (Cockcroft-Gault) 111.8 BUN/Creatinine Ratio 37 (6-20) H Glucose Level 106 mg/dL (70-99) H Calcium Level 9.1 mg/dL (8.5-10.1) Total Bilirubin 0.5 mg/dL (0.2-1.0) Aspartate Amino Transferase (AST) 12 U/L (15-37) L Alanine Aminotransferase (ALT) 24 U/L (16-63) Alkaline Phosphatase 61 U/L (46-116) Ammonia < 10 mcmol/L (11-34) L Total Protein 6.6 g/dL (6.4-8.2) Albumin 3.3 g/dL (3.4-5.0) L Albumin/Globulin Ratio 1.0 (1.0-1.7) Valproic Acid Level 38 mcg/mL (50-100) L Valproic Acid Last Dose Date 01/20/20 Valproic Acid Last Dose Time 2100 Current Medications: Meds: Current Medications Medications (Trade) Dose Ordered Sig/Jone Route PRN Reason Start Time Stop Time Status Last Admin Dose Admin Rivastigmine (Exelon 13.3mg) 1 patch DAILY TD 01/21/20 09:00 01/21/20 07:35 Medroxyprogesterone Acetate (Provera) 5 mg DAILY PO 01/21/20 09:00 01/21/20 07:34 I have reviewed the current psychotropics carefully including drug interactions. Risk benefit ratio favors no change other than as noted in my dictated progress note. Diagnosis: Problems: (1) Impulse control disorder, unspecified (2) Lewy body dementia with behavioral disturbance (3) Anxiety disorder, unspecified (4) Major neurocognitive disorder (5) Major depressive disorder with psychotic features (6) Psychotic disorder ROGE HOGAN MD Jan 22, 2020 07:09
--- NOTE | 2020-01-22 07:22 | PDOC ---
Exam Note: Ceasar Note: This note is a late entry for 01/21/2020 covers elements not covered in my initial note. Subjective: The patient was evaluated on telehealth rounds in the evening of 01/21/2020 with Yarelis nursing aid as one of the patients on the unit has tested positive for COVID-19 and unit is on a lockdown with no admission and discharges. That is the reason I am doing telehealth rounds to minimize any further spread of the infection. Nursing report with Yanet MAYES. He slept an hour previous night. He did better during last evening and he has been in his room today. Review of Systems: No CV, , pulmonary, eye system symptoms on review. Mental Status Exam: Reasonably oriented to himself and not oriented to situation. Short-term memory appears impaired. Speech coherent, has some latency. Abstraction is fair. Computation is impaired. Language function is intact. Attention span short. No suicidal or homicidal ideation. Laboratory Data: Reviewed. Impression: Major neurocognitive disorder, Lewy body with delusion, depression, and behavioral disturbance. Anxiety disorder unspecified. Impulse control disorder unspecified. Rest unchanged. Plan: Continue current psychotropics. We will adjust further as clinically indicated. Assessment: Vital Signs/I&O: Vital Signs Date Time Temp Pulse Resp B/P (MAP) Pulse Ox O2 Delivery O2 Flow Rate FiO2 01/22/20 05:50 98.0 70 16 147/83 (104) 99 01/21/20 15:44 Room Air I & O 01/21/20 01/21/20 01/22/20 14:59 22:59 06:59 Intake Total 240 ml 240 ml Balance 240 ml 240 ml Labs: Laboratory Tests Test 01/21/20 08:05 White Blood Count 8.9 x10^3/uL (4.0-11.0) Red Blood Count 4.46 x10^6/uL (4.30-5.70) Hemoglobin 13.6 g/dL (13.0-17.5) Hematocrit 40.4 % (39.0-53.0) Mean Corpuscular Volume 90 fL (79-100) Mean Corpuscular Hemoglobin 30 pg (25-35) Mean Corpuscular Hemoglobin Concent 34 g/dL (31-37) Red Cell Distribution Width 14.3 % (11.5-14.5) Platelet Count 288 x10^3/uL (140-400) Neutrophils (%) (Auto) 72 % (31-73) Lymphocytes (%) (Auto) 14 % (24-48) L Monocytes (%) (Auto) 12 % (0-9) H Eosinophils (%) (Auto) 1 % (0-3) Basophils (%) (Auto) 0 % (0-3) Neutrophils # (Auto) 6.4 x10^3uL (1.8-7.7) Lymphocytes # (Auto) 1.2 x10^3/uL (1.0-4.8) Monocytes # (Auto) 1.1 x10^3/uL (0.0-1.1) Eosinophils # (Auto) 0.1 x10^3/uL (0.0-0.7) Basophils # (Auto) 0.0 x10^3/uL (0.0-0.2) Sodium Level 145 mmol/L (136-145) Potassium Level 4.1 mmol/L (3.5-5.1) Chloride Level 109 mmol/L (98-107) H Carbon Dioxide Level 27 mmol/L (21-32) Anion Gap 9 (6-14) Blood Urea Nitrogen 26 mg/dL (8-26) Creatinine 0.7 mg/dL (0.7-1.3) Estimated GFR (Cockcroft-Gault) 111.8 BUN/Creatinine Ratio 37 (6-20) H Glucose Level 106 mg/dL (70-99) H Calcium Level 9.1 mg/dL (8.5-10.1) Total Bilirubin 0.5 mg/dL (0.2-1.0) Aspartate Amino Transferase (AST) 12 U/L (15-37) L Alanine Aminotransferase (ALT) 24 U/L (16-63) Alkaline Phosphatase 61 U/L (46-116) Ammonia < 10 mcmol/L (11-34) L Total Protein 6.6 g/dL (6.4-8.2) Albumin 3.3 g/dL (3.4-5.0) L Albumin/Globulin Ratio 1.0 (1.0-1.7) Valproic Acid Level 38 mcg/mL (50-100) L Valproic Acid Last Dose Date 01/20/20 Valproic Acid Last Dose Time 2100 Current Medications: Meds: Current Medications Medications (Trade) Dose Ordered Sig/Jone Route PRN Reason Start Time Stop Time Status Last Admin Dose Admin Rivastigmine (Exelon 13.3mg) 1 patch DAILY TD 01/21/20 09:00 01/21/20 07:35 Medroxyprogesterone Acetate (Provera) 5 mg DAILY PO 01/21/20 09:00 01/21/20 07:34 I have reviewed the current psychotropics carefully including drug interactions. Risk benefit ratio favors no change other than as noted in my dictated progress note. Diagnosis: Problems: (1) Impulse control disorder, unspecified (2) Lewy body dementia with behavioral disturbance (3) Anxiety disorder, unspecified (4) Major neurocognitive disorder (5) Major depressive disorder with psychotic features (6) Psychotic disorder ROGE HOGAN MD Jan 22, 2020 07:22
[2020-01-22] MEDS: RIVASTIGMINE 13.3MG PATCH. TD SCH (08:18)
[2020-01-22] MEDS: DIVALPROEX 125 MG CAP.SPRINK PO SCH ×2 (08:18→16:34)
[2020-01-22] MEDS: medroxyPROGESTERone 5 MG TABLET PO SCH (08:18)
[2020-01-22] MEDS: TAMSULOSIN 0.4 MG CAP.ER.24H. PO SCH (08:18)
[2020-01-22] MEDS: QUEtiapine 25 MG TABLET. PO SCH ×2 (08:19→20:56)
[2020-01-22] MEDS: MEMANTINE 5 MG TABLET. PO SCH ×2 (08:19→20:56)
[2020-01-22] MEDS: LISINOPRIL 20 MG TABLET PO SCH (08:19)
--- NOTE | 2020-01-22 09:34 | NUR ---
PATIENT IS LOCATED IN PT ROOM AT TIME OF ASSESSMENT AND MEDICATION ADMINISTRATION. ACCORDING TO PERINATAL BREASTFEEDING ASSISTANT AND TURNING MACHINE OPERATOR HELPER STAFF PATIENT HAS BEEN VERY LETHARGIC THE PAST 3 DAYS. PATIENT IS LETHARGIC FOR THIS NURSE NOT OPENING EYES AND APPEARING DIAPHORETIC. WHEN THIS NURSE ASKED PATIENT HOW HE WAS FEELING, PATIENT REPLIED "JUST ZAPPED". VS OBTAINED AND ARE STABLE. NO FEVER NOTED. MEDICATIONS HELD THIS AM R/T PTS LETHARGY. PATIENT IS RESTING IN ROOM AT THIS TIME. WILL CONTINUE TO MONITOR.
--- NOTE | 2020-01-22 12:00 | NUR ---
SW attempted to contact Lindsey from [facility] to give her an update on pt. No one answered the phone to the facility. SW will attempt to contact them again at a later time.
[2020-01-22 16:30] VITALS: BP 131/78
--- NOTE | 2020-01-22 17:48 | NUR ---
SW attempted to contact pt , Magda, and left a message informing pt that SW will call her in the morning with an update.
[2020-01-22] MEDS: MIRTAZAPINE 7.5 MG TABLET. PO SCH (20:56)
[2020-01-22] MEDS: MELATONIN 3 MG TABLET PO SCH (20:56)
--- NOTE | 2020-01-22 22:24 | NUR ---
Nursing Note Pt in room, drowsy in bed, awakens to voice, bilat sclera red left worse than right. Feels hot to touch, more calm and compliant than usual. Ge walked to the shower with minimal encouragement. Now sleeping. Will re check vitals periodically.
--- NOTE | 2020-01-22 23:09 | NUR ---
Nursing Note Pt kept attempting to get up, when asked what he was doing, he stated "can I have a bite?" Pt is hungry keeping him awake apparently. Gave the patient pudding, 2 cookies and an ensure. Now resting in bed with his eyes closed.
[2020-01-23 05:57] VITALS: BP 138/85
--- NOTE | 2020-01-23 07:25 | PDOC ---
Exam Note: Ceasar Note: This note is a late entry for 01/22/2020 covers elements not covered in my initial note. Subjective: The patient was evaluated on telehealth rounds in the evening on 01/22/2020 due to COVID-19 pandemic on the unit with Marta, nursing aid. Nursing report was with Shala MAYES. He slept 8 hours previous night. He slept all day, tired during the day. Morning meds were held due to his sedation and the previous night psychotropics were held due to sedation. He remains confused but not aggressive. Review of Systems: No CV, , pulmonary, eye system symptoms on review. Mental Status Exam: Reasonably oriented to himself and not oriented to situation. Short-term memory appears impaired. Speech coherent, has some latency. Abstraction is fair. Computation is impaired. Language function is intact. Attention span short. No suicidal or homicidal ideation. Laboratory Data: Reviewed. Impression: Major neurocognitive disorder, Lewy body with delusion, depression, and behavioral disturbance. Anxiety disorder unspecified. Impulse control disorder unspecified. Rest unchanged. Plan: No change from initial note. Dr. Pereira will be covering for me during my vacation from 01/23/2020 to 01/29/2020. Assessment: Vital Signs/I&O: Vital Signs Date Time Temp Pulse Resp B/P (MAP) Pulse Ox O2 Delivery O2 Flow Rate FiO2 01/23/20 05:57 98.0 66 18 138/85 (102) 99 01/21/20 15:44 Room Air I & O 01/22/20 01/22/20 01/23/20 15:00 23:00 07:00 Intake Total 120 ml 240 ml Balance 120 ml 240 ml Labs: Laboratory Tests Test 01/22/20 11:37 SARS-CoV-2 Antigen (Rapid) Negative (NEGATIVE) Current Medications: I have reviewed the current psychotropics carefully including drug interactions. Risk benefit ratio favors no change other than as noted in my dictated progress note. Diagnosis: Problems: (1) Impulse control disorder, unspecified (2) Lewy body dementia with behavioral disturbance (3) Anxiety disorder, unspecified (4) Major neurocognitive disorder (5) Major depressive disorder with psychotic features (6) Psychotic disorder ROGE HOGAN MD Jan 23, 2020 07:25
[2020-01-23] MEDS: DIVALPROEX 125 MG CAP.SPRINK PO SCH ×2 (08:35→16:50)
[2020-01-23] MEDS: LISINOPRIL 20 MG TABLET PO SCH (08:35)
[2020-01-23] MEDS: medroxyPROGESTERone 5 MG TABLET PO SCH (08:35)
[2020-01-23] MEDS: QUEtiapine 25 MG TABLET. PO SCH ×2 (08:35→20:03)
[2020-01-23] MEDS: MEMANTINE 5 MG TABLET. PO SCH ×2 (08:35→20:02)
[2020-01-23] MEDS: TAMSULOSIN 0.4 MG CAP.ER.24H. PO SCH (08:35)
[2020-01-23] MEDS: RIVASTIGMINE 13.3MG PATCH. TD SCH (08:37)
--- NOTE | 2020-01-23 12:07 | NUR ---
Nursing note: Pt laying in bed when approached for med pass and assessment. He was easily aroused and was compliant with meds whole with no difficulty and cooperative with his assessment. Pt was later observed walking in the hallway attempting to walk into other pt's rooms. He was looking up at the ceiling and appeared to be hearing things. He kept saying "I have to find them and try to hear what they're saying." Redirection was attempted, he was very resistive with going back to his room, requiring staff x3 to get him in his room, since he was also refusing to wear his mask. Pt was sat down in his chair and encouraged to take a drink of water and relax. Pt stood right back up and began to quickly walk back out of his room. Staff x3 assisted pt to secure hallway d/t being unable to redirect him. Pt continued to yell out for help and stating "They don't even know! 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 Please let me talk to Prabhjot! They don't even know!" Pt was given PRN at that time. He continues to be in the secure hallway yelling out and is refusing to eat lunch. Will continue to monitor.
[2020-01-23 16:12] VITALS: BP 116/73
[2020-01-23] MEDS: MIRTAZAPINE 7.5 MG TABLET. PO SCH (20:02)
[2020-01-23] MEDS: MELATONIN 3 MG TABLET PO SCH (20:02)
[2020-01-23] MEDS: traZODone 50 MG TABLET. PO PRN (20:03)
--- NOTE | 2020-01-23 21:35 | PN ---
DATE: 01/23/2020 SUBJECTIVE: The patient was seen today on telehealth rounds, met with the staff, chart reviewed. Also, covering for Dr. Ford. The patient continues to have visual hallucinations, also very delusional and paranoid, constantly pacing, also has significant hearing loss. OBSERVATION: VITAL SIGNS: Temperature 98, blood pressure 138/85, pulse 70, respirations 16, O2 sat 97%. GENERAL: Slept about 6 hours last night. The patient's appetite improved. MEDICATIONS: The patient's current medications include Exelon patch 13.3 mg daily, mirtazapine 7.5 mg at night, Namenda 5 mg b.i.d., Depakote 250 mg twice a day, trazodone 50 mg at night p.r.n. The patient is also on Seroquel 25 mg twice a day and melatonin 3 mg at night. LABORATORY DATA: The patient's lab reviewed, no significant change from the prior levels except slight increase in BUN and creatinine ratio of 37. Ammonia level was less than 10. The patient did not have any falls. The patient is able to participate in some of the groups, but has episodes of intense fear and also acting upon her delusional thinking. ASSESSMENT: 1. Major depressive disorder with psychotic features. 2. Lewy body dementia. 3. Major neurocognitive disorder with delusions and depression. 4. Generalized anxiety disorder. PLAN: Continue with the current treatment plan, but the Seroquel will be increased to 25 mg 3 times a day to contain her psychotic behavior. LENGTH OF STAY: 3-5 days. ANGELICA LOMAX MD DR: DENI/lilli JOB#: [id number] / [id number]
--- NOTE | 2020-01-23 23:35 | NUR ---
Nursing Note Pt asleep in room awakens early in shift and is confused and combative. Requires max assist to take meds tries to refuse to take them. Zyprexa and trazodone given at HS. Now resting well.
[2020-01-24] MEDS: traZODone 50 MG TABLET. PO PRN ×2 (01:56→19:51)
[2020-01-24 06:24] VITALS: BP 104/57
[2020-01-24] MEDS: QUEtiapine 25 MG TABLET. PO SCH ×2 (08:04→19:51)
[2020-01-24] MEDS: DIVALPROEX 125 MG CAP.SPRINK PO SCH ×2 (08:04→15:55)
[2020-01-24] MEDS: TAMSULOSIN 0.4 MG CAP.ER.24H. PO SCH (08:04)
[2020-01-24] MEDS: MEMANTINE 5 MG TABLET. PO SCH ×2 (08:04→19:52)
[2020-01-24] MEDS: medroxyPROGESTERone 5 MG TABLET PO SCH (08:04)
[2020-01-24] MEDS: LISINOPRIL 20 MG TABLET PO SCH (08:05)
[2020-01-24] MEDS: RIVASTIGMINE 13.3MG PATCH. TD SCH (08:05)
--- NOTE | 2020-01-24 10:32 | NUR ---
Nursing note: Pt in his room for morning meds and assessment. He was very irritable and resistive with taking his meds and told this nurse to "get the hell out". Meds were crushed in vanilla pudding and was attempted to be given to him again. Pt again was resistive with eating the bite of pudding and demanding me to get out of his room. Pt was educated on the importance of being cooperative and taking his meds while participating in this program. Pt continued to tell this nurse to get out. This nurse told him I was going to meter maintenance person his room until he ate his bite of pudding with the meds. Pt was eventually compliant. He is currently sitting in his room staring at a puzzle on his bed side table. Will continue to monitor.
--- NOTE | 2020-01-24 14:39 | NUR ---
GUANACO sent updates to Celeste at [facility] re: pt. ELOS for pt will be February 05.
[2020-01-24 15:59] VITALS: BP 86/50
[2020-01-24] MEDS: MELATONIN 3 MG TABLET PO SCH (19:51)
[2020-01-24] MEDS: MIRTAZAPINE 7.5 MG TABLET. PO SCH (19:52)
[2020-01-24] MEDS: SENNOSIDES 8.6 MG TABLET PO SCH (19:55)
--- NOTE | 2020-01-24 21:29 | PN ---
DATE: 01/24/2020 SUBJECTIVE: The patient was seen today, met with the staff, chart reviewed. Evaluation was done on tele rounds. Staff reports that the patient is still confused, agitated easily, also having some speech impediment. Continues to be delusional and paranoid. OBSERVATION: VITAL SIGNS: Temperature 98.1, blood pressure 104/57, and pulse 76. Slept about 4-1/2 hours last night. The patient needing assistance with ADLs. The patient's lab reviewed. His current medication includes Exelon patch 13.3 mg daily, mirtazapine 7.5 mg at night, Namenda 5 mg b.i.d., Depakote 250 mg twice a day and trazodone 50 mg at night p.r.n. The patient's Seroquel was increased to 25 mg t.i.d. p.o. The patient's lab reviewed. The patient is not having any side effects to medications. ASSESSMENT: 1. Major depressive disorder with psychotic features. 2. Lewy body dementia. 3. Major neurocognitive disorder with delusions and depression. 4. Generalized anxiety disorder. PLAN: Continue with the treatment changes, increasing Seroquel to 25 mg t.i.d. p.o. LENGTH OF STAY: 3-5 days. ANGELICA LOMAX MD DR: DENI/lilli JOB#: [id number] / [id number]
--- NOTE | 2020-01-24 21:48 | NUR ---
Nursing Note Pt in bed sleeping warm to touch but afebrile. VSS, BP a little low at 96/64 but other than that stable, will not awaken to take meds. Will re check vitals and status periodically.
[2020-01-25 06:29] VITALS: BP 131/76
[2020-01-25] MEDS: DIVALPROEX 125 MG CAP.SPRINK PO SCH ×2 (07:30→16:30)
[2020-01-25] MEDS: TAMSULOSIN 0.4 MG CAP.ER.24H. PO SCH (09:00)
[2020-01-25] MEDS: RIVASTIGMINE 13.3MG PATCH. TD SCH (09:00)
[2020-01-25] MEDS: MEMANTINE 5 MG TABLET. PO SCH ×2 (09:00→21:00)
[2020-01-25] MEDS: CHOLECALCIFEROL (VITAMIN D3) 50,000 UNIT CAPSULE PO SCH (09:00)
[2020-01-25] MEDS: QUEtiapine 25 MG TABLET. PO SCH ×2 (09:00→14:00)
[2020-01-25] MEDS: LISINOPRIL 20 MG TABLET PO SCH (09:00)
[2020-01-25] MEDS: POLYETHYLENE GLYCOL 3350 17 GM PACKET. PO SCH (09:00)
[2020-01-25] MEDS: medroxyPROGESTERone 5 MG TABLET PO SCH (09:00)
[2020-01-25] MEDS: SENNOSIDES 8.6 MG TABLET PO SCH ×2 (09:00→21:00)
--- NOTE | 2020-01-25 11:23 | NUR ---
Nursing note: Pt has been in bed sleeping all morning, but is able to be aroused to answer a couple questions with one word responses. He is warm to the touch and diaphoretic, but continues to be afebrile. VSS. Held AM meds and will continue to check on pt status. He is currently asleep in his room.
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
[2020-01-25 15:44] VITALS: BP 102/64
--- NOTE | 2020-01-25 20:14 | PN ---
DATE: 01/25/2020 SUBJECTIVE: The patient was evaluated today by telehealth rounds and also participated in the treatment review. The patient continues to be delusional and paranoid and also he slept a lot, about 7-1/2 hours and also feeling drowsy, sometimes difficult to wake up. OBSERVATION: VITAL SIGNS: Stable. The patient's appetite has improved. The patient's behavior fluctuates, periods where he is not able to sleep and then sleeping long hours. MEDICATIONS: The patient's current medications include Exelon patch 13.3 mg daily, mirtazapine 7.5 mg at night, Namenda 5 mg b.i.d., Depakote 250 mg b.i.d., and trazodone 50 mg at night p.r.n. The patient is also on Seroquel 25 mg t.i.d. p.o., was increased yesterday because of the patient's continued behavior problems, increased anxiety, agitation and also not sleeping. The patient is not having any other side effects to the medications. LABORATORY DATA: The patient's lab reviewed. ASSESSMENT: 1. Major depressive disorder, psychotic features. 2. Lewy body dementia. 3. Major neurocognitive disorder with delusions and depression. LENGTH OF STAY: 5 days. ANGELICA LOMAX MD DR: DENI/lilli JOB#: [id number] / [id number]
[2020-01-25 20:20] VITALS: BP 126/74
[2020-01-25] MEDS: MELATONIN 3 MG TABLET PO SCH (21:00)
[2020-01-25] MEDS: MIRTAZAPINE 7.5 MG TABLET. PO SCH (21:00)
--- NOTE | 2020-01-25 22:27 | NUR ---
Nursing Note: Location of Patient during Assessment: Pt lying in bed, sleeping at shift change. Behaviors Mood and Affect this shift: Pt drowsy and lethargic this evening but arouses to voice and vital signs remain stable. Medication Compliant: HS medications held thus far this shift due to drowsiness and lethargy. Assessment Compliant: Cooperative and compliant with assessment and cares. Response After Interventions: Pt currently lying in bed, sleeping.
[2020-01-26 05:03] VITALS: BP 107/62
[2020-01-26] MEDS: DIVALPROEX 125 MG CAP.SPRINK PO SCH ×2 (07:30→07:40)
[2020-01-26] MEDS: RIVASTIGMINE 13.3MG PATCH. TD SCH (07:40)
[2020-01-26] MEDS: SENNOSIDES 8.6 MG TABLET PO SCH ×3 (07:41→21:22)
[2020-01-26] MEDS: medroxyPROGESTERone 5 MG TABLET PO SCH ×2 (07:41→08:40)
[2020-01-26] MEDS: MEMANTINE 5 MG TABLET. PO SCH ×3 (07:41→21:00)
[2020-01-26] MEDS: LISINOPRIL 20 MG TABLET PO SCH ×2 (07:41→08:40)
[2020-01-26] MEDS: TAMSULOSIN 0.4 MG CAP.ER.24H. PO SCH ×2 (07:41→08:39)
[2020-01-26] MEDS: POLYETHYLENE GLYCOL 3350 17 GM PACKET. PO SCH ×2 (07:42→08:40)
--- NOTE | 2020-01-26 09:00 | NUR ---
Covid and rapid done and sent to lab.
[2020-01-26 09:15] LABS: BASO % 1 % (0-3); EOS # 0.1 x10^3/uL (0.0-0.7); EOS % 1 % (0-3); HEMATOCRIT 37.8 % (39.0-53.0); HEMOGLOBIN 12.7 g/dL (13.0-17.5); LYMPH # 1.4 x10^3/uL (1.0-4.8); LYMPH % 22 % (24-48); MEAN CORPUSCULAR HEMOGLOBIN 30 pg (25-35); MEAN CORPUSCULAR HGB CONC 34 g/dL (31-37); MEAN CORPUSCULAR VOLUME 90 fL (79-100); MONO # 0.8 x10^3/uL (0.0-1.1); MONO % 12 % (0-9); NEUT % 64 % (31-73); PLATELET COUNT 298 x10^3/uL (140-400); WHITE BLOOD COUNT 6.3 x10^3/uL (4.0-11.0)
[2020-01-26 09:31] LABS: ALBUMIN/GLOBULIN RATIO 0.9 (1.0-1.7); CALCIUM 8.9 mg/dL (8.5-10.1); CREATININE 0.9 mg/dL (0.7-1.3); GFR 83.7; POTASSIUM 4.3 mmol/L (3.5-5.1); TOTAL BILIRUBIN 0.5 mg/dL (0.2-1.0); TOTAL PROTEIN 6.4 g/dL (6.4-8.2)
--- NOTE | 2020-01-26 13:13 | NUR ---
Pt slept thru breakfast. No meds given. Pt assisted for lunch. Resistive to cares. Pt taken to shower with other nurse and aide. Pt more awake. Pt ate 25% lunch. Drank ensure and glass of water. Pt would not stay up. Assisted back to bed.
[2020-01-26 16:00] VITALS: BP 102/54
[2020-01-26] MEDS ORDERED: DIVALPROEX 125 MG CAP.SPRINK PO SCH (17:00)
[2020-01-26 17:27] LABS: BACTERIA,URINE 0 /HPF (0-FEW); BILIRUBIN,URINE NEG (NEG); CLARITY,URINE CLEAR; COLOR,URINE YELLOW; GLUCOSE,URINE NEG (NEG); NITRITE,URINE NEG (NEG); WBC,URINE OCC /HPF (0-4)
[2020-01-26 20:21] VITALS: BP 119/65
[2020-01-26] MEDS: MIRTAZAPINE 7.5 MG TABLET. PO SCH (21:00)
[2020-01-26] MEDS: MELATONIN 3 MG TABLET PO SCH (21:00)
--- NOTE | 2020-01-26 21:36 | NUR ---
Nursing Note The patient was located in his room for his assessment and medication pass. The patient was laying in bed when approached. The patient was lethargic and irritable when interacted with. All medications except senna was held r/t lethargy. The patients vital signs were all within normal range. The patient remains in bed sleeping at this time.
--- NOTE | 2020-01-26 21:45 | PN ---
DATE: 01/26/2020 SUBJECTIVE: The patient was evaluated via telehealth rounds, discussed with the staff and also reviewed the patient's current medications and lab. Staff reports that the patient is still lethargic and sleepy at times. OBSERVATION: VITAL SIGNS: Temperature 97.5, blood pressure 107/62, pulse 71, respirations 18, O2 sat 95 percent. GENERAL: Slept about 10 hours last night. The patient able to stay awake during the daytime and able to eat his lunch. MEDICATIONS: The patient's current medications include Exelon patch 13.3 mg daily, mirtazapine 7.5 mg at night, Namenda 5 mg b.i.d., Depakote 250 mg b.i.d., trazodone 50 mg at night p.r.n. The patient is also on Seroquel 25 mg t.i.d. as a p.r.n. The patient's Seroquel 25 mg p.r.n. was discontinued. The patient is on Depakote 250 mg at night and decreased the morning dose of Depakote. The patient still have hearing loss. Staff denies of any falls. ASSESSMENT: 1. Major depressive disorder with psychotic features, Lewy body dementia. 2. Major neurocognitive disorder with delusions and depression. PLAN: To continue with the treatment. LENGTH OF STAY: 5 days. ANGELICA LOMAX MD DR: DENI/lilli JOB#: [id number] / [id number]
[2020-01-27 05:58] VITALS: BP 100/60
[2020-01-27] MEDS: RIVASTIGMINE 13.3MG PATCH. TD SCH (07:41)
[2020-01-27] MEDS: TAMSULOSIN 0.4 MG CAP.ER.24H. PO SCH ×2 (07:41→09:00)
[2020-01-27] MEDS: SENNOSIDES 8.6 MG TABLET PO SCH ×3 (07:41→22:54)
[2020-01-27] MEDS: MEMANTINE 5 MG TABLET. PO SCH ×3 (07:41→22:54)
[2020-01-27] MEDS: POLYETHYLENE GLYCOL 3350 17 GM PACKET. PO SCH ×2 (07:41→09:00)
[2020-01-27] MEDS: LISINOPRIL 20 MG TABLET PO SCH ×2 (07:42→09:00)
[2020-01-27] MEDS: medroxyPROGESTERone 5 MG TABLET PO SCH ×2 (07:42→09:00)
[2020-01-27 16:08] VITALS: BP 125/73
--- NOTE | 2020-01-27 16:30 | NUR ---
Pt has been up for meals with much encouragement. Pt encouraged to drink extra fluids. Has been in bed with eyes closed all shift. Responds to verbal stimuli. Dr Mills here to see pt. To encourage fluids. No am meds given.
[2020-01-27] MEDS: DIVALPROEX ER 250 MG TAB.ER.24H. PO SCH (17:00)
--- NOTE | 2020-01-27 22:21 | NUR ---
Pt laying in bed all evening. Pt sleeping, but awakens to voice. HS medications held at this time.
[2020-01-27] MEDS: MIRTAZAPINE 7.5 MG TABLET. PO SCH (22:54)
[2020-01-27] MEDS: MELATONIN 3 MG TABLET PO SCH (22:54)
--- NOTE | 2020-01-27 23:40 | NUR ---
Pt restless, setting off bed alarm and pressure alarm. Pt toileted but continued to be restless. HS medications administered.
[2020-01-28 05:59] VITALS: BP 134/79
[2020-01-28] MEDS: POLYETHYLENE GLYCOL 3350 17 GM PACKET. PO SCH (07:35)
[2020-01-28] MEDS: RIVASTIGMINE 13.3MG PATCH. TD SCH (07:35)
[2020-01-28] MEDS: SENNOSIDES 8.6 MG TABLET PO SCH ×3 (07:35→22:48)
[2020-01-28] MEDS: MEMANTINE 5 MG TABLET. PO SCH ×3 (07:36→22:48)
[2020-01-28] MEDS: medroxyPROGESTERone 5 MG TABLET PO SCH (07:36)
[2020-01-28] MEDS: TAMSULOSIN 0.4 MG CAP.ER.24H. PO SCH (07:36)
[2020-01-28] MEDS: LISINOPRIL 20 MG TABLET PO SCH (07:36)
--- NOTE | 2020-01-28 08:36 | PN ---
DATE: 01/27/2020 This is a late entry for service date 01/27/2020. SUBJECTIVE: The patient was evaluated by telehealth rounds, met with the staff, chart reviewed. Staff reports that he is refusing to eat, dehydrated and he has lost about 20 pounds. OBJECTIVE: VITAL SIGNS: Temperature 97.9, blood pressure 100/60, pulse 61, respirations 16, O2 sat 97%. GENERAL: Slept about 7 hours last night. The patient able to interact, but is confused. His thinking is not goal directed. MEDICATIONS: The patient's current medications include Exelon patch 13.3 mg daily, mirtazapine 7.5 mg at night, Namenda 5 mg twice a day, Depakote 250 mg twice a day, trazodone 50 mg at night p.r.n. The patient's Depakote was decreased to 250 mg at night because of increased drowsiness. The patient also has some hearing loss. Staff reports no falls. ASSESSMENT: 1. Major depressive disorder with psychotic features. 2. Lewy body dementia. 3. Major neurocognitive disorder with delusions and depression. PLAN: Continue with the current treatment plan. LENGTH OF STAY: 5-7 days. ANGELICA LOMAX MD DR: DENI/lilli JOB#: [id number] / [id number]
--- NOTE | 2020-01-28 11:47 | PN ---
DATE: 01/28/2020 SUBJECTIVE: The patient was evaluated by daily rounds, met with the staff, chart reviewed and also covering for Dr. Ford. The patient continues to be restless, able to eat better, not having any side effects to the medications. The patient also difficult to redirect. OBSERVATION: VITAL SIGNS: Temperature 98.1, blood pressure 139/79, pulse 68, respirations 16, O2 sat 97%. GENERAL: Slept about 7 hours last night. The patient is still confused, delusional, not able to focus on reality. MEDICATIONS: His current medications include Exelon patch 13.3 mg daily, mirtazapine 7.5 mg at night, Namenda 5 mg twice a day, Depakote 250 mg twice a day, trazodone 50 mg at night p.r.n. The patient is currently on Depakote 250 mg at night. The patient still has hearing loss, no falls. ASSESSMENT: 1. Major depressive disorder with psychotic features. 2. Lewy body dementia. 3. Major neurocognitive disorder with delusions and depression. PLAN: To continue with the current treatment plan. LENGTH OF STAY: 5-7 days. ANGELICA LOMAX MD DR: DENI/lilli JOB#: [id number] / [id number]
[2020-01-28 16:21] VITALS: BP 124/76
[2020-01-28] MEDS: DIVALPROEX ER 250 MG TAB.ER.24H. PO SCH (17:00)
--- NOTE | 2020-01-28 17:09 | NUR ---
Pt has been up for meals. Has been compliant with meds and cares. Pt has been quiet and withdrawn. Appetite better today.
[2020-01-28] MEDS: MELATONIN 3 MG TABLET PO SCH ×2 (21:00→22:48)
[2020-01-28] MEDS: MIRTAZAPINE 7.5 MG TABLET. PO SCH ×2 (21:00→22:48)
--- NOTE | 2020-01-28 21:30 | NUR ---
Pt has been sleeping this shift thus far. HS medications held at this time.
--- NOTE | 2020-01-28 23:00 | NUR ---
Pt became restless and attempted to administer HS medications. Pt became very agitated, stating "no, nisha mcmahan, fely arroyo, I said no!" Addendum: 01/29/20 at 0039 by NARCISA RODRIGUEZ RN Pt currently laying in bed awake, repeatedly chanting "the numbers have passed themselves" over and over. Pt refuses to answer or acknowledge staff, just continuously chanting. Attempted to administer HS medications again. Pt became combative and swung at this nurse. Pt currently awake in bed chanting.
--- NOTE | 2020-01-29 06:01 | NUR ---
Pt has been awake all night. Pt restless and hallucinating. Pt becomes agitated and yells when staff approaches him. Refused vital signs this AM. Pt has had repetitive movements throughout the night; repetitive speech, mouth movements, hand gestures.
[2020-01-29] MEDS: medroxyPROGESTERone 5 MG TABLET PO SCH (08:16)
[2020-01-29] MEDS: TAMSULOSIN 0.4 MG CAP.ER.24H. PO SCH (08:16)
[2020-01-29] MEDS: MEMANTINE 5 MG TABLET. PO SCH ×2 (08:16→19:47)
[2020-01-29] MEDS: RIVASTIGMINE 13.3MG PATCH. TD SCH (08:17)
[2020-01-29] MEDS: SENNOSIDES 8.6 MG TABLET PO SCH ×2 (08:17→19:47)
[2020-01-29] MEDS: POLYETHYLENE GLYCOL 3350 17 GM PACKET. PO SCH (08:17)
[2020-01-29] MEDS: LISINOPRIL 20 MG TABLET PO SCH (09:00)
--- NOTE | 2020-01-29 11:15 | NUR ---
Patient in bed with eyes closed at shift change and asked "did I fall asleep?" I told him he appears to have and he was concerned about that. Refused VS for second shift supervisor but allowed me to take his BP. Took his medicine crushed in Ensure without difficulty. Resting in bed at this time. Will continue to monitor.
[2020-01-29] MEDS: MAGNESIUM HYDROXIDE 2,400 MG/30 ML ORAL.SUSP. PO PRN (11:45)
[2020-01-29 16:05] VITALS: BP 166/81
[2020-01-29] MEDS: DIVALPROEX ER 250 MG TAB.ER.24H. PO SCH (17:33)
--- NOTE | 2020-01-29 19:40 | PN ---
DATE: 01/29/2020 SUBJECTIVE: The patient was evaluated today by tele rounds and with the staff and chart reviewed. Staff reports no major behavior problems today. Not exhibiting any evidence of delusions or hallucinations, but still is not sleeping well, sleeps only about 2 hours at night, but patient sleeps during the daytime. OBSERVATION: VITAL SIGNS: Stable. MEDICATIONS: The patient's current medications include Exelon patch 13.3 mg daily, mirtazapine 7.5 mg at night, Namenda 5 mg twice a day, trazodone 50 mg at night p.r.n. The patient currently on Depakote 250 mg at night. The patient has still hearing loss, but no falls. ASSESSMENT: 1. Major depressive disorder with psychotic features. 2. Lewy body dementia. 3. Major neurocognitive disorder with delusions and depressions. PLAN: To continue with the treatment plan. LENGTH OF STAY: The patient is scheduled for discharge somewhere around middle of this month. ANGELICA LOMAX MD DR: DENI/lilli JOB#: [id number] / [id number]
[2020-01-29] MEDS: MIRTAZAPINE 7.5 MG TABLET. PO SCH (19:47)
[2020-01-29] MEDS: MELATONIN 3 MG TABLET PO SCH (19:47)
--- NOTE | 2020-01-29 22:44 | NUR ---
Pt calmer this evening than previous evenings. Still highly disorganized but not as agitated. Continues to do repetitive jaw movements back and forth. Medications crushed and consumed in chocolate Boost.
--- NOTE | 2020-01-30 02:18 | NUR ---
Pt is awake, restless and disorganized. Pt appears to be having auditory hallucinations and pointed to the ceiling stated he was "listening to the [employer] account." Pt is delusional, appears to believe he is at work. Pt given paper and felt tip pen; however the distraction was not effective. Pt continued to attempt to come out of his room and ambulate in the hallway. Pt resistive with redirection. PRN Zyprexa administered. Will continue to monitor.
--- NOTE | 2020-01-30 04:07 | NUR ---
During 15 minute checks, pt aggressively came towards staff member with felt tip pen. Pt escorted to [facility]. Noreen playing for distraction. Pt continues to have auditory hallucinations yelling out intermittently.
[2020-01-30 05:57] VITALS: BP 148/92
--- NOTE | 2020-01-30 06:03 | NUR ---
Pt extremely agitated and combative during vital signs. Staff x3 assisted in obtaining vital signs. Pt remains in [facility]. Yelling out intermittently.
[2020-01-30] MEDS: medroxyPROGESTERone 5 MG TABLET PO SCH ×2 (08:03→09:00)
[2020-01-30] MEDS: MEMANTINE 5 MG TABLET. PO SCH ×4 (08:03→20:45)
[2020-01-30] MEDS: RIVASTIGMINE 13.3MG PATCH. TD SCH (08:03)
[2020-01-30] MEDS: TAMSULOSIN 0.4 MG CAP.ER.24H. PO SCH ×2 (08:03→09:00)
[2020-01-30] MEDS: SENNOSIDES 8.6 MG TABLET PO SCH ×4 (08:03→20:45)
[2020-01-30] MEDS: POLYETHYLENE GLYCOL 3350 17 GM PACKET. PO SCH ×2 (08:03→09:00)
[2020-01-30] MEDS: LISINOPRIL 20 MG TABLET PO SCH ×2 (08:04→09:00)
--- NOTE | 2020-01-30 09:29 | NUR ---
Pt located in [facility] this morning. Pt refused breakfast and am medications hidden in Boost. Pt continues to hallucinate and yell out. Sleeping intermittently sitting in a chair.
--- NOTE | 2020-01-30 11:00 | NUR ---
Pt very resistive to shower this morning. Staff x4 assisted taking pt to shower. After shower, pt was taken to his room to lay down. Pt restless and would not stay in his room or wear a mask. Pt taken to [facility] where he was agitated and yelling. Pt continues to have hallucinations and yells out. PRN Zyprexa administered.
[2020-01-30 15:55] VITALS: BP 148/97
[2020-01-30] MEDS: DIVALPROEX ER 250 MG TAB.ER.24H. PO SCH (17:25)
[2020-01-30] MEDS: MELATONIN 3 MG TABLET PO SCH (19:33)
[2020-01-30] MEDS: MIRTAZAPINE 15 MG TABLET PO SCH (19:33)
[2020-01-30] MEDS: traZODone 50 MG TABLET. PO PRN (19:38)
--- NOTE | 2020-01-30 20:55 | NUR ---
Nursing Note: Location of Patient during Assessment: Pt wandering in West hallway at shift change. Behaviors Mood and Affect this shift: Pt irritable, disorganized, and resistive. Yelling to be let out of the hallway. Medication Compliant: Pt non-compliant with medications. I attempted to offer them hidden in chocolate Boost but he refused to drink, stating "get that shit away from me. I don't want it!" Medications were then crushed and administered via oral syringe. Assessment Compliant: Pt resistive and non-compliant with assessment this evening. Response After Interventions: Pt currently sitting in West hallway where he is calm at this time.
--- NOTE | 2020-01-30 22:05 | PDOC ---
Exam Note: Ceasar Note: Please also refer to the separate dictated note~for this date of service dictated separately.~Patient seen individually. Discussed the patient with Nursing staff reviewed the chart.~Reviewed interim history and current functioning. Reviewed vital signs,~Labs/ Radiology~and current medications noted below. Continue current treatment with the changes noted in the dictated addendum note Assessment: Vital Signs/I&O: Vital Signs Date Time Temp Pulse Resp B/P (MAP) Pulse Ox O2 Delivery O2 Flow Rate FiO2 01/30/20 19:40 98.6 100 01/30/20 15:55 92 16 148/97 (114) 01/28/20 05:59 Room Air I & O 01/29/20 01/29/20 01/30/20 15:00 23:00 07:00 Intake Total 480 ml 240 ml Balance 480 ml 240 ml Current Medications: Meds: Current Medications Medications (Trade) Dose Ordered Sig/Jone Route PRN Reason Start Time Stop Time Status Last Admin Dose Admin Trazodone HCl (Desyrel) 50 mg PRN QHS PRN PO INSOMNIA, MAY REPEAT X1 01/30/20 19:00 01/30/20 19:38 Mirtazapine (Remeron) 15 mg QHS PO 01/30/20 21:00 01/30/20 19:33 I have reviewed the current psychotropics carefully including drug interactions. Risk benefit ratio favors no change other than as noted in my dictated progress note. Diagnosis: Problems: (1) Impulse control disorder, unspecified (2) Lewy body dementia with behavioral disturbance (3) Anxiety disorder, unspecified (4) Major neurocognitive disorder (5) Major depressive disorder with psychotic features (6) Psychotic disorder ROGE HOGAN MD Jan 30, 2020 22:05
[2020-01-31 06:02] LABS: BASO # 0.1 x10^3/uL (0.0-0.2); BASO % 1 % (0-3); EOS # 0.1 x10^3/uL (0.0-0.7); EOS % 0 % (0-3); HEMATOCRIT 40.6 % (39.0-53.0); HEMOGLOBIN 13.6 g/dL (13.0-17.5); LYMPH # 1.9 x10^3/uL (1.0-4.8); LYMPH % 14 % (24-48); MEAN CORPUSCULAR HEMOGLOBIN 30 pg (25-35); MEAN CORPUSCULAR HGB CONC 34 g/dL (31-37); MEAN CORPUSCULAR VOLUME 90 fL (79-100); MONO # 1.3 x10^3/uL (0.0-1.1); MONO % 9 % (0-9); NEUT # 10.2 x10^3uL (1.8-7.7); NEUT % 76 % (31-73); PLATELET COUNT 317 x10^3/uL (140-400); RED CELL DISTRIBUTION WIDTH 13.8 % (11.5-14.5); WHITE BLOOD COUNT 13.5 x10^3/uL (4.0-11.0)
[2020-01-31 06:03] VITALS: BP 107/71
[2020-01-31 06:18] LABS: ALBUMIN 3.5 g/dL (3.4-5.0); ALBUMIN/GLOBULIN RATIO 1.1 (1.0-1.7); ALK PHOS 62 U/L (46-116); ALT (SGPT) 22 U/L (16-63); ANION GAP 9 (6-14); AST (SGOT) 10 U/L (15-37); BLOOD UREA NITROGEN 45 mg/dL (8-26); BUN/CREATININE RATIO 25 (6-20); CALCIUM 9.4 mg/dL (8.5-10.1); CARBON DIOXIDE 27 mmol/L (21-32); CHLORIDE 108 mmol/L (98-107); CREATININE 1.8 mg/dL (0.7-1.3); GFR 37.6; GLUCOSE 108 mg/dL (70-99); POTASSIUM 4.3 mmol/L (3.5-5.1); SODIUM 144 mmol/L (136-145); TOTAL BILIRUBIN 0.4 mg/dL (0.2-1.0); TOTAL PROTEIN 6.8 g/dL (6.4-8.2)
[2020-01-31 06:20] LABS: VAL ACID 16 mcg/mL (50-100)
[2020-01-31] MEDS: MEMANTINE 5 MG TABLET. PO SCH (07:40)
[2020-01-31] MEDS: SENNOSIDES 8.6 MG TABLET PO SCH ×2 (07:40→21:00)
[2020-01-31] MEDS: LISINOPRIL 20 MG TABLET PO SCH (07:41)
[2020-01-31] MEDS: medroxyPROGESTERone 5 MG TABLET PO SCH (07:41)
[2020-01-31] MEDS: TAMSULOSIN 0.4 MG CAP.ER.24H. PO SCH (07:41)
[2020-01-31] MEDS: RIVASTIGMINE 13.3MG PATCH. TD SCH (07:42)
[2020-01-31] MEDS: POLYETHYLENE GLYCOL 3350 17 GM PACKET. PO SCH (07:42)
--- NOTE | 2020-01-31 09:50 | NUR ---
Nursing Note Pt told tech that he feels bad this am. Laying in bed, faced flushed, WBC noted 13.5, made the comment yesterday that it was painful to void. Will collect a U/A today. When I entered room to assess him, he states "get the hell away from me and get the hell out!! NOW!!" Meds given in enusre shake this am. Pt drank the shake willingly.
--- NOTE | 2020-01-31 10:12 | PDOC ---
Exam Note: Ceasar Note: This note is a late entry for 01/30/2020 covers elements not covered in my initial note. Subjective: The patient was evaluated on telehealth rounds in the evening of 01/30/2020 with [facility]. The unit is shut down due to COVID-19 exposure on the unit with no admissions and discharges for now. Dr. Pereira has covered for me for the past several days since I had been on vacation. Reviewed information with Dr. Pereira. Per Shala MAYES, he slept just 1-1/4 hours previous night. At times, the patient refuses medications, refuses to eat and drink, resistive to cares. Review of Systems: No CV, , pulmonary, eye, ENT system symptoms on review. Mental Status Exam: Reasonably oriented to himself. Insight and judgment, recent and remote memory, attention and concentration, fund of knowledge is poor consistent with his diagnoses. Often verbal responses are monosyllabic, somewhat disorganized. Laboratory Data: Reviewed. Impression: Major neurocognitive disorder, Lewy body with delusion, depression, and behavioral disturbance. Anxiety disorder unspecified. Impulse control disorder unspecified. Rest unchanged. Plan: Continue psychotropics mentioned in my initial note. Check CBC, CMP, valproic acid level on 01/31/2020. Start trazodone 50 mg h.s. p.r.n. may repeat x1 for insomnia. Continue rest psychotropics unchanged. Assessment: Vital Signs/I&O: Vital Signs Date Time Temp Pulse Resp B/P (MAP) Pulse Ox O2 Delivery O2 Flow Rate FiO2 01/31/20 07:41 78 107/71 01/31/20 06:03 98.8 16 98 01/28/20 05:59 Room Air I & O 01/30/20 01/30/20 01/31/20 15:00 23:00 07:00 Intake Total 120 ml 180 ml Balance 120 ml 180 ml Labs: Laboratory Tests Test 01/31/20 05:47 White Blood Count 13.5 x10^3/uL (4.0-11.0) H Red Blood Count 4.50 x10^6/uL (4.30-5.70) Hemoglobin 13.6 g/dL (13.0-17.5) Hematocrit 40.6 % (39.0-53.0) Mean Corpuscular Volume 90 fL (79-100) Mean Corpuscular Hemoglobin 30 pg (25-35) Mean Corpuscular Hemoglobin Concent 34 g/dL (31-37) Red Cell Distribution Width 13.8 % (11.5-14.5) Platelet Count 317 x10^3/uL (140-400) Neutrophils (%) (Auto) 76 % (31-73) H Lymphocytes (%) (Auto) 14 % (24-48) L Monocytes (%) (Auto) 9 % (0-9) Eosinophils (%) (Auto) 0 % (0-3) Basophils (%) (Auto) 1 % (0-3) Neutrophils # (Auto) 10.2 x10^3uL (1.8-7.7) H Lymphocytes # (Auto) 1.9 x10^3/uL (1.0-4.8) Monocytes # (Auto) 1.3 x10^3/uL (0.0-1.1) H Eosinophils # (Auto) 0.1 x10^3/uL (0.0-0.7) Basophils # (Auto) 0.1 x10^3/uL (0.0-0.2) Sodium Level 144 mmol/L (136-145) Potassium Level 4.3 mmol/L (3.5-5.1) Chloride Level 108 mmol/L (98-107) H Carbon Dioxide Level 27 mmol/L (21-32) Anion Gap 9 (6-14) Blood Urea Nitrogen 45 mg/dL (8-26) H Creatinine 1.8 mg/dL (0.7-1.3) H Estimated GFR (Cockcroft-Gault) 37.6 BUN/Creatinine Ratio 25 (6-20) H Glucose Level 108 mg/dL (70-99) H Calcium Level 9.4 mg/dL (8.5-10.1) Total Bilirubin 0.4 mg/dL (0.2-1.0) Aspartate Amino Transferase (AST) 10 U/L (15-37) L Alanine Aminotransferase (ALT) 22 U/L (16-63) Alkaline Phosphatase 62 U/L (46-116) Total Protein 6.8 g/dL (6.4-8.2) Albumin 3.5 g/dL (3.4-5.0) Albumin/Globulin Ratio 1.1 (1.0-1.7) Valproic Acid Level 16 mcg/mL (50-100) L Valproic Acid Last Dose Date 01/30/20 Valproic Acid Last Dose Time 1700 Current Medications: Meds: Current Medications Medications (Trade) Dose Ordered Sig/Jone Route PRN Reason Start Time Stop Time Status Last Admin Dose Admin Trazodone HCl (Desyrel) 50 mg PRN QHS PRN PO INSOMNIA, MAY REPEAT X1 01/30/20 19:00 01/30/20 19:38 Mirtazapine (Remeron) 15 mg QHS PO 01/30/20 21:00 01/30/20 19:33 I have reviewed the current psychotropics carefully including drug interactions. Risk benefit ratio favors no change other than as noted in my dictated progress note. Diagnosis: Problems: (1) Impulse control disorder, unspecified (2) Lewy body dementia with behavioral disturbance (3) Anxiety disorder, unspecified (4) Major neurocognitive disorder (5) Major depressive disorder with psychotic features (6) Psychotic disorder ROGE HOGAN MD Jan 31, 2020 10:12
[2020-01-31] MEDS ORDERED: CHOL500021 PO (13:27)
[2020-01-31] MEDS ORDERED: MEDR2.5T28 PO (13:30)
[2020-01-31] MEDS ORDERED: MAGN24003 PO (13:32)
[2020-01-31] MEDS ORDERED: POLY2500 PO (13:34)
[2020-01-31] MEDS ORDERED: MEMA5TAB PO (13:37)
[2020-01-31] MEDS ORDERED: OLAN5TAB9 PO (13:40)
[2020-01-31] MEDS ORDERED: TRAZ-120 PO (13:41)
[2020-01-31] MEDS ORDERED: MIRT15TA90 PO (13:42)
[2020-01-31] MEDS ORDERED: DIVA250T PO (13:45)
[2020-01-31] MEDS ORDERED: RIVA1PAT5 TD (13:50)
[2020-01-31] MEDS ORDERED: METH57CR17 TP (13:53)
[2020-01-31 13:55] LABS: BILIRUBIN,URINE NEG (NEG); CLARITY,URINE HAZY; COLOR,URINE AMBER; GLUCOSE,URINE NEG (NEG); NITRITE,URINE NEG (NEG)
[2020-01-31 13:56] LABS: BACTERIA,URINE 0 /HPF (0-FEW); HYALINE CASTS, URINE MOD /HPF; SQUAMOUS EPITHELIAL CELL,UR FEW /LPF
[2020-01-31 16:01] VITALS: BP 145/72
[2020-01-31] MEDS: DIVALPROEX ER 250 MG TAB.ER.24H. PO SCH (17:00)
--- NOTE | 2020-01-31 20:29 | NUR ---
Pt lying in bed, sleeping at shift change. Pt drowsy when approached for assessment, awoke easily to voice but went right back to sleep. Pt cooperative with assessment. HS medications will be held at this time d/t drowsiness, will continue to monitor.
[2020-01-31] MEDS: MEMANTINE 10 MG TABLET. PO SCH (21:00)
[2020-01-31] MEDS: MELATONIN 3 MG TABLET PO SCH (21:00)
[2020-01-31] MEDS: MIRTAZAPINE 15 MG TABLET PO SCH (21:00)
--- NOTE | 2020-01-31 21:52 | PDOC ---
Exam Note: Ceasar Note: Please also refer to the separate dictated note~for this date of service dictated separately.~Patient seen individually. Discussed the patient with Nursing staff reviewed the chart.~Reviewed interim history and current functioning. Reviewed vital signs,~Labs/ Radiology~and current medications noted below. Continue current treatment with the changes noted in the dictated addendum note Assessment: Vital Signs/I&O: Vital Signs Date Time Temp Pulse Resp B/P (MAP) Pulse Ox O2 Delivery O2 Flow Rate FiO2 01/31/20 19:45 98.6 100 01/31/20 16:01 87 18 145/72 (96) 01/28/20 05:59 Room Air I & O 01/30/20 01/30/20 01/31/20 15:00 23:00 07:00 Intake Total 120 ml 180 ml Balance 120 ml 180 ml Labs: Laboratory Tests Test 01/31/20 05:47 01/31/20 12:25 White Blood Count 13.5 x10^3/uL (4.0-11.0) H Red Blood Count 4.50 x10^6/uL (4.30-5.70) Hemoglobin 13.6 g/dL (13.0-17.5) Hematocrit 40.6 % (39.0-53.0) Mean Corpuscular Volume 90 fL (79-100) Mean Corpuscular Hemoglobin 30 pg (25-35) Mean Corpuscular Hemoglobin Concent 34 g/dL (31-37) Red Cell Distribution Width 13.8 % (11.5-14.5) Platelet Count 317 x10^3/uL (140-400) Neutrophils (%) (Auto) 76 % (31-73) H Lymphocytes (%) (Auto) 14 % (24-48) L Monocytes (%) (Auto) 9 % (0-9) Eosinophils (%) (Auto) 0 % (0-3) Basophils (%) (Auto) 1 % (0-3) Neutrophils # (Auto) 10.2 x10^3uL (1.8-7.7) H Lymphocytes # (Auto) 1.9 x10^3/uL (1.0-4.8) Monocytes # (Auto) 1.3 x10^3/uL (0.0-1.1) H Eosinophils # (Auto) 0.1 x10^3/uL (0.0-0.7) Basophils # (Auto) 0.1 x10^3/uL (0.0-0.2) Sodium Level 144 mmol/L (136-145) Potassium Level 4.3 mmol/L (3.5-5.1) Chloride Level 108 mmol/L (98-107) H Carbon Dioxide Level 27 mmol/L (21-32) Anion Gap 9 (6-14) Blood Urea Nitrogen 45 mg/dL (8-26) H Creatinine 1.8 mg/dL (0.7-1.3) H Estimated GFR (Cockcroft-Gault) 37.6 BUN/Creatinine Ratio 25 (6-20) H Glucose Level 108 mg/dL (70-99) H Calcium Level 9.4 mg/dL (8.5-10.1) Total Bilirubin 0.4 mg/dL (0.2-1.0) Aspartate Amino Transferase (AST) 10 U/L (15-37) L Alanine Aminotransferase (ALT) 22 U/L (16-63) Alkaline Phosphatase 62 U/L (46-116) Total Protein 6.8 g/dL (6.4-8.2) Albumin 3.5 g/dL (3.4-5.0) Albumin/Globulin Ratio 1.1 (1.0-1.7) Valproic Acid Level 16 mcg/mL (50-100) L Valproic Acid Last Dose Date 01/30/20 Valproic Acid Last Dose Time 1700 Urine Collection Type Unknown Urine Color Brenda Urine Clarity Hazy Urine pH 5.0 Urine Specific [place] 1.025 Urine Protein 100 mg/dl (NEG-TRACE) Urine Glucose (UA) Neg mg/dL (NEG) Urine Ketones (Stick) 15 mg/dL (NEG) Urine Blood Neg (NEG) Urine Nitrite Neg (NEG) Urine Bilirubin Neg (NEG) Urine Urobilinogen Dipstick 1.0 mg/dL (0.2 mg/dL) Urine Leukocyte Esterase Neg (NEG) Urine RBC 1-2 /HPF (0-2) Urine WBC 5-10 /HPF (0-4) Urine Squamous Epithelial Cells Few /LPF Urine Bacteria 0 /HPF (0-FEW) Urine Hyaline Casts Mod /HPF Urine Mucus Marked /LPF Current Medications: I have reviewed the current psychotropics carefully including drug interactions. Risk benefit ratio favors no change other than as noted in my dictated progress note. Diagnosis: Problems: (1) Impulse control disorder, unspecified (2) Lewy body dementia with behavioral disturbance (3) Anxiety disorder, unspecified (4) Major neurocognitive disorder (5) Major depressive disorder with psychotic features (6) Psychotic disorder ROGE HOGAN MD Jan 31, 2020 21:52
[2020-02-01 05:37] VITALS: BP 115/72
[2020-02-01 08:27] VITALS: BP 117/70
[2020-02-01] MEDS: CHOLECALCIFEROL (VITAMIN D3) 50,000 UNIT CAPSULE PO SCH (09:00)
[2020-02-01] MEDS: SENNOSIDES 8.6 MG TABLET PO SCH ×2 (09:00→21:00)
[2020-02-01] MEDS: LISINOPRIL 20 MG TABLET PO SCH (09:00)
[2020-02-01] MEDS: POLYETHYLENE GLYCOL 3350 17 GM PACKET. PO SCH (09:00)
[2020-02-01] MEDS: medroxyPROGESTERone 5 MG TABLET PO SCH (09:00)
[2020-02-01] MEDS: MEMANTINE 10 MG TABLET. PO SCH ×2 (09:00→21:00)
[2020-02-01] MEDS: RIVASTIGMINE 13.3MG PATCH. TD SCH (09:00)
[2020-02-01] MEDS: TAMSULOSIN 0.4 MG CAP.ER.24H. PO SCH (09:00)
--- NOTE | 2020-02-01 13:48 | NUR ---
Nursing Note Pt in bed awakens intermittently, meds held due to excessive sleepiness. Inability to awaken and swallow. VSS at this time. Urine culture still pending.
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
[2020-02-01 16:11] VITALS: BP 128/78
[2020-02-01] MEDS: DIVALPROEX ER 250 MG TAB.ER.24H. PO SCH (17:00)
--- NOTE | 2020-02-01 20:50 | NUR ---
Pt lying in bed with eyes closed at shift change. Pt awakens to voice but remains drowsy. HS medications held at this time d/t somnolence, VSS, will continue to monitor.
[2020-02-01] MEDS: MELATONIN 3 MG TABLET PO SCH (21:00)
[2020-02-01] MEDS: MIRTAZAPINE 15 MG TABLET PO SCH (21:00)
--- NOTE | 2020-02-01 21:47 | PDOC ---
Exam Note: Ceasar Note: This note is a late entry for 01/31/2020 covers elements not covered in my initial note. Subjective: The patient was evaluated on telehealth rounds in the evening of 01/31/2020 with Jess MAYES. The unit is shut down due to COVID-19 exposure on the unit with no admissions and discharges for now. Per Adeline MAYES, he slept 4- 1/2 hours previous night. He has been somewhat sedated. UA has reflex to culture, sensitivity is awaited. He has been somewhat abrasive with staff telling get the hell out of here. He is somewhat dehydrated. BUN and creatinine elevated. Oral intake low. We will defer to Dr. Nunez. Valproic acid level is 16. Review of Systems: No CV, , pulmonary, eye, ENT system symptoms on review. Mental Status Exam: Reasonably oriented to himself. Insight and judgment, recent and remote memory, attention and concentration, fund of knowledge is poor consistent with his diagnoses. Often verbal responses are monosyllabic. He has been quite sedated, withdrawn, but did interact with me verbally somewhat as I met with him on telehealth rounds. Laboratory Data: Reviewed. Impression: Major neurocognitive disorder, Lewy body with delusion, depression, and behavioral disturbance. Anxiety disorder unspecified. Impulse control disorder unspecified. Rest unchanged. Plan: Continue psychotropics mentioned from initial note. Defer medical management to Dr. Nunez. Await urine C&S and then treat as appropriate. Increase Namenda from 5 mg b.i.d. to 10 mg b.i.d. given his Lewy body dementia diagnosis. Rest unchanged for now. Assessment: Vital Signs/I&O: Vital Signs Date Time Temp Pulse Resp B/P (MAP) Pulse Ox O2 Delivery O2 Flow Rate FiO2 02/01/20 21:41 98.5 98 02/01/20 16:11 79 18 128/78 (95) Room Air I & O 0 01/31/20 01/31/20 02/01/20 15:00 23:00 07:00 Intake Total 280 ml 480 ml Balance 280 ml 480 ml Current Medications: I have reviewed the current psychotropics carefully including drug interactions. Risk benefit ratio favors no change other than as noted in my dictated progress note. Diagnosis: Problems: (1) Impulse control disorder, unspecified (2) Lewy body dementia with behavioral disturbance (3) Anxiety disorder, unspecified (4) Major neurocognitive disorder (5) Major depressive disorder with psychotic features (6) Psychotic disorder ROGE HOGAN MD Feb 01, 2020 21:47
--- NOTE | 2020-02-01 21:57 | PDOC ---
Exam Note: Ceasar Note: Please also refer to the separate dictated note~for this date of service dictated separately.~Patient seen individually. Discussed the patient with Nursing staff reviewed the chart.~Reviewed interim history and current functioning. Reviewed vital signs,~Labs/ Radiology~and current medications noted below. Continue current treatment with the changes noted in the dictated addendum note Assessment: Vital Signs/I&O: Vital Signs Date Time Temp Pulse Resp B/P (MAP) Pulse Ox O2 Delivery O2 Flow Rate FiO2 02/01/20 21:41 98.5 98 02/01/20 16:11 79 18 128/78 (95) Room Air I & O 01/31/20 01/31/20 02/01/20 15:00 23:00 07:00 Intake Total 280 ml 480 ml Balance 280 ml 480 ml Current Medications: I have reviewed the current psychotropics carefully including drug interactions. Risk benefit ratio favors no change other than as noted in my dictated progress note. Diagnosis: Problems: (1) Impulse control disorder, unspecified (2) Lewy body dementia with behavioral disturbance (3) Anxiety disorder, unspecified (4) Major neurocognitive disorder (5) Major depressive disorder with psychotic features (6) Psychotic disorder ROGE HOGAN MD Feb 01, 2020 21:57
[2020-02-02 05:22] VITALS: BP 115/74
[2020-02-02] MEDS: RIVASTIGMINE 13.3MG PATCH. TD SCH (07:32)
[2020-02-02] MEDS: MEMANTINE 10 MG TABLET. PO SCH ×2 (07:32→19:52)
[2020-02-02] MEDS: TAMSULOSIN 0.4 MG CAP.ER.24H. PO SCH (07:32)
[2020-02-02] MEDS: POLYETHYLENE GLYCOL 3350 17 GM PACKET. PO SCH (07:32)
[2020-02-02] MEDS: SENNOSIDES 8.6 MG TABLET PO SCH ×2 (07:32→19:53)
[2020-02-02] MEDS: medroxyPROGESTERone 5 MG TABLET PO SCH (07:32)
[2020-02-02] MEDS: LISINOPRIL 20 MG TABLET PO SCH (07:33)
--- NOTE | 2020-02-02 08:21 | RAD ---
CHEST AP ONLY Clinical indications: Shortness of breath Comparison: None available. Findings: Old granulomatous disease is seen. No acute lung infiltrate or pleural effusion or pulmonary edema or lung mass or pneumothorax is seen. The heart size, pulmonary vasculature, mediastinum and both manjula are unremarkable. Impression: No acute radiographic abnormality is seen. Electronically signed by: Lloyd Kuhn MD (02/02/2020 8:18 AM) [id number]
--- NOTE | 2020-02-02 10:07 | NUR ---
PT IS LOCATED IN PT ROOM AT TIME OF ASSESSMENT AND MEDICATION ADMINISTRATION. PATIENT IS COMPLIANT WITH MEDICATIONS CRUSHED IN [facility]. PATIENT IS RESISTIVE TO CXR THIS AM BUT IS RE-DIRECTABLE AND AGREED TO CXR. PATIENT IS RESTING IN BED AT THIS TIME. WILL CONTINUE TO MONITOR.
--- NOTE | 2020-02-02 13:05 | NUR ---
PATIENT DISROBED IN HALLWAY. PT REFUSING TO REDRESS. HE IS YELLING AT STAFF AND PHYSICALLY AGGRESSIVE WITH STAFF. PATIENT REDRESSED BY STAFF AND ESCORTED TO [facility], [facility].
--- NOTE | 2020-02-02 13:07 | NUR ---
PATIENT DISROBING IN [facility]. PT YELLING THIS IS BULL SHIT LET ME OUT. AND CURSING AT STAFF. PT IS REDRESSED IN [place] TO PREVENT DISROBING.
[2020-02-02] MEDS: QUEtiapine 25 MG TABLET. PO PRN (14:51)
--- NOTE | 2020-02-02 15:16 | NUR ---
Nursing Note Pt was in the hallway around 1445, naked, refuses to allow pants to be donned, angry and yelling. Zyprexa and Seroquel given in a small amount of water. Now sitting in the hallway watching Willard Calloway the [employer] and seems to be calming down
[2020-02-02] MEDS: DIVALPROEX ER 250 MG TAB.ER.24H. PO SCH (16:22)
--- NOTE | 2020-02-02 16:39 | NUR ---
[facility] Social Work Discharge Planning Form Patient Name EDUARDO ALBRIGHT Admit Date: 10 January 2020 DISCHARGE PLAN Discharge Destination: Pt to discharge back to [facility] Assessment: N/A Level II Assessment: N/A Transportation: Transport to be set up; Time TBD Special Instructions/Notes: Please fax all discharge orders and medication list to the numbers listed below. DISCHARGE TO FACILITY Facility: [facility] Address: [address] [place] [address] Rd; [place] Contact Name: Lindsey Malhotra, Health and [employer] Cook: Contact Name: Roberta: Health and Certified Phlebotomy Technician PCP: Dr. Merchant
[2020-02-02] MEDS: traZODone 50 MG TABLET. PO PRN ×2 (19:52→22:47)
[2020-02-02] MEDS: MELATONIN 3 MG TABLET PO SCH (19:52)
[2020-02-02] MEDS: MIRTAZAPINE 15 MG TABLET PO SCH (19:52)
--- NOTE | 2020-02-02 21:58 | PDOC ---
Exam Note: Ceasar Note: Please also refer to the separate dictated note~for this date of service dictated separately.~Patient seen individually. Discussed the patient with Nursing staff reviewed the chart.~Reviewed interim history and current functioning. Reviewed vital signs,~Labs/ Radiology~and current medications noted below. Continue current treatment with the changes noted in the dictated addendum note Assessment: Vital Signs/I&O: Vital Signs Date Time Temp Pulse Resp B/P (MAP) Pulse Ox O2 Delivery O2 Flow Rate FiO2 02/02/20 07:33 68 115/74 02/02/20 05:22 97.4 18 99 02/01/20 16:11 Room Air I & O 02/01/20 02/01/20 02/02/20 15:00 23:00 07:00 Intake Total 120 ml 50 ml Balance 120 ml 50 ml Current Medications: Meds: Current Medications Medications (Trade) Dose Ordered Sig/Jone Route PRN Reason Start Time Stop Time Status Last Admin Dose Admin Olanzapine (ZyPREXA ZYDIS) 5 mg PRN Q2HR PRN PO PSYCHOSIS 02/02/20 18:00 02/02/20 20:51 I have reviewed the current psychotropics carefully including drug interactions. Risk benefit ratio favors no change other than as noted in my dictated progress note. Diagnosis: Problems: (1) Impulse control disorder, unspecified (2) Lewy body dementia with behavioral disturbance (3) Anxiety disorder, unspecified (4) Major neurocognitive disorder (5) Major depressive disorder with psychotic features (6) Psychotic disorder ROGE HOGAN MD Feb 02, 2020 21:57
--- NOTE | 2020-02-02 23:05 | NUR ---
Pt has been located in the [facility] all evening. Pt extremely labile; sitting calmly in the chair at times and then yelling and agitated at other times. Pt hallucinating, restless, stripping his onesie off. Pt resistive with crushed medications but eventually compliant. PRN Zyprexa and Trazodone administered with HS medications. Pt continued to be agitated and restless. Repeat Trazodone administered at 2245. Pt currently in [facility]. Will continue to monitor.
--- NOTE | 2020-02-02 23:16 | PDOC ---
Exam Note: Ceasar Note: This note is a late entry for 02/01/2020 covers elements not covered in my initial note. Subjective: The patient was evaluated on telehealth rounds in the morning of 02/01/2020 with treatment team meeting with Pennie (healthcare social worker), Adeline RN and Marta nursing aid. The unit is still on a lockdown due to COVID-19 exposure with no admissions and discharges. Per Adeline RN in the evening, urine has reflex to culture. We will await the results. He slept 10 hours previous night. Nursing staff states that he is playing possum, seems to withdraw from staff. He will be returning to [facility] in [place], [place] next week and he will be having two COVID screens before discharge. He has been somewhat overtly sedated. Review of Systems: No CV, , pulmonary, eye, ENT system symptoms on review. Mental Status Exam: Reasonably oriented to himself. He is quite overtly sedated as I met with him on telehealth rounds but still verbally interactive. Insight and judgment, recent and remote memory, attention and concentration, fund of knowledge is poor consistent with his diagnoses. No clear psychotic symptoms, suicidal or homicidal ideation. Laboratory Data: Reviewed. Impression: Major neurocognitive disorder, Lewy body with delusion, depression, and behavioral disturbance. Anxiety disorder unspecified. Impulse control disorder unspecified. Rest unchanged. Plan: No change from initial note. Assessment: Vital Signs/I&O: Vital Signs Date Time Temp Pulse Resp B/P (MAP) Pulse Ox O2 Delivery O2 Flow Rate FiO2 02/02/20 07:33 68 115/74 02/02/20 05:22 97.4 18 99 02/01/20 16:11 Room Air I & O 02/01/20 02/01/20 02/02/20 15:00 23:00 07:00 Intake Total 120 ml 50 ml Balance 120 ml 50 ml Current Medications: Meds: Current Medications Medications (Trade) Dose Ordered Sig/Jone Route PRN Reason Start Time Stop Time Status Last Admin Dose Admin Olanzapine (ZyPREXA ZYDIS) 5 mg PRN Q2HR PRN PO PSYCHOSIS 02/02/20 18:00 02/02/20 20:51 I have reviewed the current psychotropics carefully including drug interactions. Risk benefit ratio favors no change other than as noted in my dictated progress note. Diagnosis: Problems: (1) Impulse control disorder, unspecified (2) Lewy body dementia with behavioral disturbance (3) Anxiety disorder, unspecified (4) Major neurocognitive disorder (5) Major depressive disorder with psychotic features (6) Psychotic disorder ROGE HOGAN MD Feb 02, 2020 23:16
[2020-02-03] MEDS: QUEtiapine 25 MG TABLET. PO PRN (00:48)
--- NOTE | 2020-02-03 00:58 | NUR ---
Pt continues to yell out in the [place]. Pt actively hallucinating. Pt yelling "help me" and repeatedly stating he needs to get out of here. Staff toileted pt and attempted to engage him in conversation, however all redirection failed. PRN Seroquel and Zyprexa administered.
[2020-02-03 05:46] VITALS: BP 98/51
[2020-02-03] MEDS: POLYETHYLENE GLYCOL 3350 17 GM PACKET. PO SCH (08:13)
[2020-02-03] MEDS: medroxyPROGESTERone 5 MG TABLET PO SCH (08:13)
[2020-02-03] MEDS: RIVASTIGMINE 13.3MG PATCH. TD SCH (08:13)
[2020-02-03] MEDS: MEMANTINE 10 MG TABLET. PO SCH ×3 (08:13→21:03)
[2020-02-03] MEDS: SENNOSIDES 8.6 MG TABLET PO SCH ×3 (08:13→21:03)
[2020-02-03] MEDS: TAMSULOSIN 0.4 MG CAP.ER.24H. PO SCH (08:13)
[2020-02-03] MEDS: LISINOPRIL 20 MG TABLET PO SCH ×2 (08:13→08:14)
--- NOTE | 2020-02-03 09:11 | NUR ---
Patient confused and having vivid delusions in the morning. Patient pacing hallway until breakfast. Patient compliant with medication and was elated to speak with his . Patient appears more relaxed after speaking with his and is attempting to take a nap.
[2020-02-03 09:31] LABS: BASO % 0 % (0-3); EOS % 0 % (0-3); HEMATOCRIT 40.8 % (39.0-53.0); HEMOGLOBIN 13.6 g/dL (13.0-17.5); LYMPH # 0.9 x10^3/uL (1.0-4.8); LYMPH % 8 % (24-48); MEAN CORPUSCULAR HEMOGLOBIN 30 pg (25-35); MEAN CORPUSCULAR HGB CONC 33 g/dL (31-37); MEAN CORPUSCULAR VOLUME 90 fL (79-100); MONO # 0.9 x10^3/uL (0.0-1.1); MONO % 8 % (0-9); NEUT # 9.3 x10^3uL (1.8-7.7); NEUT % 84 % (31-73); PLATELET COUNT 323 x10^3/uL (140-400); RED BLOOD COUNT 4.55 x10^6/uL (4.30-5.70); RED CELL DISTRIBUTION WIDTH 13.6 % (11.5-14.5); WHITE BLOOD COUNT 11.1 x10^3/uL (4.0-11.0)
[2020-02-03 09:38] LABS: ALBUMIN 3.9 g/dL (3.4-5.0); ALBUMIN/GLOBULIN RATIO 1.1 (1.0-1.7); CALCIUM 9.8 mg/dL (8.5-10.1); CREATININE 1.7 mg/dL (0.7-1.3); GFR 40.2; POTASSIUM 4.2 mmol/L (3.5-5.1); TOTAL BILIRUBIN 0.5 mg/dL (0.2-1.0); TOTAL PROTEIN 7.5 g/dL (6.4-8.2)
[2020-02-03 15:57] VITALS: BP 126/82
[2020-02-03] MEDS: DIVALPROEX ER 250 MG TAB.ER.24H. PO SCH (17:00)
[2020-02-03] MEDS: MELATONIN 3 MG TABLET PO SCH ×2 (21:00→21:02)
[2020-02-03] MEDS: MIRTAZAPINE 15 MG TABLET PO SCH ×2 (21:00→21:03)
[2020-02-03] MEDS: traZODone 50 MG TABLET. PO PRN (21:02)
--- NOTE | 2020-02-03 21:49 | PDOC ---
Exam Note: Ceasar Note: Please also refer to the separate dictated note~for this date of service dictated separately.~Patient seen individually. Discussed the patient with Nursing staff reviewed the chart.~Reviewed interim history and current functioning. Reviewed vital signs,~Labs/ Radiology~and current medications noted below. Continue current treatment with the changes noted in the dictated addendum note Assessment: Vital Signs/I&O: Vital Signs Date Time Temp Pulse Resp B/P (MAP) Pulse Ox O2 Delivery O2 Flow Rate FiO2 02/03/20 15:57 97.7 71 16 126/82 (97) 98 Room Air I & O 02/02/20 02/02/20 02/03/20 15:00 23:00 07:00 Intake Total 356 ml 360 ml Balance 356 ml 360 ml Labs: Laboratory Tests Test 02/03/20 09:00 White Blood Count 11.1 x10^3/uL (4.0-11.0) H Red Blood Count 4.55 x10^6/uL (4.30-5.70) Hemoglobin 13.6 g/dL (13.0-17.5) Hematocrit 40.8 % (39.0-53.0) Mean Corpuscular Volume 90 fL (79-100) Mean Corpuscular Hemoglobin 30 pg (25-35) Mean Corpuscular Hemoglobin Concent 33 g/dL (31-37) Red Cell Distribution Width 13.6 % (11.5-14.5) Platelet Count 323 x10^3/uL (140-400) Neutrophils (%) (Auto) 84 % (31-73) H Lymphocytes (%) (Auto) 8 % (24-48) L Monocytes (%) (Auto) 8 % (0-9) Eosinophils (%) (Auto) 0 % (0-3) Basophils (%) (Auto) 0 % (0-3) Neutrophils # (Auto) 9.3 x10^3uL (1.8-7.7) H Lymphocytes # (Auto) 0.9 x10^3/uL (1.0-4.8) L Monocytes # (Auto) 0.9 x10^3/uL (0.0-1.1) Eosinophils # (Auto) 0.0 x10^3/uL (0.0-0.7) Basophils # (Auto) 0.0 x10^3/uL (0.0-0.2) Sodium Level 143 mmol/L (136-145) Potassium Level 4.2 mmol/L (3.5-5.1) Chloride Level 106 mmol/L (98-107) Carbon Dioxide Level 26 mmol/L (21-32) Anion Gap 11 (6-14) Blood Urea Nitrogen 47 mg/dL (8-26) H Creatinine 1.7 mg/dL (0.7-1.3) H Estimated GFR (Cockcroft-Gault) 40.2 BUN/Creatinine Ratio 28 (6-20) H Glucose Level 154 mg/dL (70-99) H Calcium Level 9.8 mg/dL (8.5-10.1) Total Bilirubin 0.5 mg/dL (0.2-1.0) Aspartate Amino Transferase (AST) 16 U/L (15-37) Alanine Aminotransferase (ALT) 30 U/L (16-63) Alkaline Phosphatase 68 U/L (46-116) Total Protein 7.5 g/dL (6.4-8.2) Albumin 3.9 g/dL (3.4-5.0) Albumin/Globulin Ratio 1.1 (1.0-1.7) Current Medications: I have reviewed the current psychotropics carefully including drug interactions. Risk benefit ratio favors no change other than as noted in my dictated progress note. Diagnosis: Problems: (1) Impulse control disorder, unspecified (2) Lewy body dementia with behavioral disturbance (3) Anxiety disorder, unspecified (4) Major neurocognitive disorder (5) Major depressive disorder with psychotic features (6) Psychotic disorder ROGE HOGAN MD Feb 03, 2020 21:49
--- NOTE | 2020-02-03 22:00 | NUR ---
Patient is in his room on assumption of care, asleep. Intermittently waking up and talking nonsense while laying in bed. Compliant with vital signs, but refused further assessments and medications despite repeated attempts. Stated "Get the fuck out of here NOW!" Patient appears to be sleeping presently. Will continue to monitor.
[2020-02-04 06:22] VITALS: BP 110/62
--- NOTE | 2020-02-04 06:32 | PDOC ---
Exam Note: Ceasar Note: This note is a late entry for 02/02/2020 covers elements not covered in my initial note. Subjective: The patient was evaluated on telehealth rounds in the evening of 02/02/2020 with [facility] nursing aid. The unit is shut down due to COVID-19 exposure on the unit with no admissions and discharges per Department of Health directives. Per Adeline RN in the evening, UA is negative. Chest x-ray is negative. The patient has had a very difficult day and nursing staff had called me as an emergency. He has been yelling, screaming, labile, agitated, paranoid, delusional. As I met with him in the evening, he felt he was going to skilled nursing for what he had done, dismissive and unwilling to talk about his perceptions. We did add a scheduled trazodone 50 mg in the evening and increased the Zyprexa to 5 mg q.24. p.r.n. psychosis and agitation maximum 20 mg in 24 hours. Review of Systems: He has vague somatic symptoms. No CV, , pulmonary, eye system symptoms on review. Mental Status Exam: Reasonably oriented to himself. The patient is quite dismissive, refusing to talk at times, paranoid, suspicious believing he was going to skilled nursing nothing I could do could offset that. Insight and judgment, recent and remote memory, attention and concentration, fund of knowledge is poor consistent with his diagnoses. No clear psychotic symptoms, suicidal or homicidal ideation. Laboratory Data: Reviewed. Impression: Major neurocognitive disorder, Lewy body with delusion, depression, and behavioral disturbance. Anxiety disorder unspecified. Impulse control disorder unspecified. Rest unchanged. Plan: We have increased the Zyprexa p.r.n. He remains on Exelon patch. Namenda was increased given his diagnosis of Lewy body dementia. He remains on Remeron, Depakote, trazodone p.r.n., and melatonin. We will adjust further as clinically indicated. Depakote dosage was adjusted. Labs level is due and we will make further adjustments thereafter. Assessment: Vital Signs/I&O: Vital Signs Date Time Temp Pulse Resp B/P (MAP) Pulse Ox O2 Delivery O2 Flow Rate FiO2 02/04/20 06:22 98.8 62 16 110/62 (78) 98 Room Air 02/03/20 22:48 96.0 I & O 02/03/20 02/03/20 02/04/20 15:00 23:00 07:00 Intake Total 300 ml 240 ml Balance 300 ml 240 ml Labs: Laboratory Tests Test 02/03/20 09:00 White Blood Count 11.1 x10^3/uL (4.0-11.0) H Red Blood Count 4.55 x10^6/uL (4.30-5.70) Hemoglobin 13.6 g/dL (13.0-17.5) Hematocrit 40.8 % (39.0-53.0) Mean Corpuscular Volume 90 fL (79-100) Mean Corpuscular Hemoglobin 30 pg (25-35) Mean Corpuscular Hemoglobin Concent 33 g/dL (31-37) Red Cell Distribution Width 13.6 % (11.5-14.5) Platelet Count 323 x10^3/uL (140-400) Neutrophils (%) (Auto) 84 % (31-73) H Lymphocytes (%) (Auto) 8 % (24-48) L Monocytes (%) (Auto) 8 % (0-9) Eosinophils (%) (Auto) 0 % (0-3) Basophils (%) (Auto) 0 % (0-3) Neutrophils # (Auto) 9.3 x10^3uL (1.8-7.7) H Lymphocytes # (Auto) 0.9 x10^3/uL (1.0-4.8) L Monocytes # (Auto) 0.9 x10^3/uL (0.0-1.1) Eosinophils # (Auto) 0.0 x10^3/uL (0.0-0.7) Basophils # (Auto) 0.0 x10^3/uL (0.0-0.2) Sodium Level 143 mmol/L (136-145) Potassium Level 4.2 mmol/L (3.5-5.1) Chloride Level 106 mmol/L (98-107) Carbon Dioxide Level 26 mmol/L (21-32) Anion Gap 11 (6-14) Blood Urea Nitrogen 47 mg/dL (8-26) H Creatinine 1.7 mg/dL (0.7-1.3) H Estimated GFR (Cockcroft-Gault) 40.2 BUN/Creatinine Ratio 28 (6-20) H Glucose Level 154 mg/dL (70-99) H Calcium Level 9.8 mg/dL (8.5-10.1) Total Bilirubin 0.5 mg/dL (0.2-1.0) Aspartate Amino Transferase (AST) 16 U/L (15-37) Alanine Aminotransferase (ALT) 30 U/L (16-63) Alkaline Phosphatase 68 U/L (46-116) Total Protein 7.5 g/dL (6.4-8.2) Albumin 3.9 g/dL (3.4-5.0) Albumin/Globulin Ratio 1.1 (1.0-1.7) Current Medications: I have reviewed the current psychotropics carefully including drug interactions. Risk benefit ratio favors no change other than as noted in my dictated progress note. Diagnosis: Problems: (1) Impulse control disorder, unspecified (2) Lewy body dementia with behavioral disturbance (3) Anxiety disorder, unspecified (4) Major neurocognitive disorder (5) Major depressive disorder with psychotic features (6) Psychotic disorder ROGE HOGAN MD Feb 04, 2020 06:32
--- NOTE | 2020-02-04 06:44 | PDOC ---
Exam Note: Ceasar Note: This note is a late entry for 02/03/2020 covers elements not covered in my initial note. Subjective: The patient was evaluated on telehealth rounds in the evening of 02/03/2020 with Juan C MAYES. The unit is shut down due to COVID-19 exposure on the unit with no admissions and discharges per Department of Health directives. Per Juan C RN in the evening, he slept 1 hour previous night. He has been anxious, agitated, restless. He slept just 1 hour. He did talk to his during the day and since then he has been calmer, somewhat elated, less anxious. Appetite is fair. Review of Systems: He has vague somatic symptoms, somewhat tired. No CV, , pulmonary, eye system symptoms on review. Mental Status Exam: Reasonably oriented to himself. The patient is somewhat paranoid, but less anxious as I met with him in the evening. Insight and judgment, recent and remote memory, attention and concentration, fund of knowledge is poor consistent with his diagnoses. No clear psychotic symptoms, suicidal or homicidal ideation. Laboratory Data: Reviewed. Impression: Major neurocognitive disorder, Lewy body with delusion, depression, and behavioral disturbance. Anxiety disorder unspecified. Impulse control disorder unspecified. Rest unchanged. Plan: No change from initial note. Assessment: Vital Signs/I&O: Vital Signs Date Time Temp Pulse Resp B/P (MAP) Pulse Ox O2 Delivery O2 Flow Rate FiO2 02/04/20 06:22 98.8 62 16 110/62 (78) 98 Room Air 02/03/20 22:48 96.0 I & O 02/03/20 02/03/20 02/04/20 15:00 23:00 07:00 Intake Total 300 ml 240 ml Balance 300 ml 240 ml Labs: Laboratory Tests Test 02/03/20 09:00 White Blood Count 11.1 x10^3/uL (4.0-11.0) H Red Blood Count 4.55 x10^6/uL (4.30-5.70) Hemoglobin 13.6 g/dL (13.0-17.5) Hematocrit 40.8 % (39.0-53.0) Mean Corpuscular Volume 90 fL (79-100) Mean Corpuscular Hemoglobin 30 pg (25-35) Mean Corpuscular Hemoglobin Concent 33 g/dL (31-37) Red Cell Distribution Width 13.6 % (11.5-14.5) Platelet Count 323 x10^3/uL (140-400) Neutrophils (%) (Auto) 84 % (31-73) H Lymphocytes (%) (Auto) 8 % (24-48) L Monocytes (%) (Auto) 8 % (0-9) Eosinophils (%) (Auto) 0 % (0-3) Basophils (%) (Auto) 0 % (0-3) Neutrophils # (Auto) 9.3 x10^3uL (1.8-7.7) H Lymphocytes # (Auto) 0.9 x10^3/uL (1.0-4.8) L Monocytes # (Auto) 0.9 x10^3/uL (0.0-1.1) Eosinophils # (Auto) 0.0 x10^3/uL (0.0-0.7) Basophils # (Auto) 0.0 x10^3/uL (0.0-0.2) Sodium Level 143 mmol/L (136-145) Potassium Level 4.2 mmol/L (3.5-5.1) Chloride Level 106 mmol/L (98-107) Carbon Dioxide Level 26 mmol/L (21-32) Anion Gap 11 (6-14) Blood Urea Nitrogen 47 mg/dL (8-26) H Creatinine 1.7 mg/dL (0.7-1.3) H Estimated GFR (Cockcroft-Gault) 40.2 BUN/Creatinine Ratio 28 (6-20) H Glucose Level 154 mg/dL (70-99) H Calcium Level 9.8 mg/dL (8.5-10.1) Total Bilirubin 0.5 mg/dL (0.2-1.0) Aspartate Amino Transferase (AST) 16 U/L (15-37) Alanine Aminotransferase (ALT) 30 U/L (16-63) Alkaline Phosphatase 68 U/L (46-116) Total Protein 7.5 g/dL (6.4-8.2) Albumin 3.9 g/dL (3.4-5.0) Albumin/Globulin Ratio 1.1 (1.0-1.7) Current Medications: I have reviewed the current psychotropics carefully including drug interactions. Risk benefit ratio favors no change other than as noted in my dictated progress note. Diagnosis: Problems: (1) Impulse control disorder, unspecified (2) Lewy body dementia with behavioral disturbance (3) Anxiety disorder, unspecified (4) Major neurocognitive disorder (5) Major depressive disorder with psychotic features (6) Psychotic disorder ROGE HOGAN MD Feb 04, 2020 06:43
[2020-02-04] MEDS: TAMSULOSIN 0.4 MG CAP.ER.24H. PO SCH (08:49)
[2020-02-04] MEDS: MEMANTINE 10 MG TABLET. PO SCH ×3 (08:49→21:00)
[2020-02-04] MEDS: medroxyPROGESTERone 5 MG TABLET PO SCH (08:49)
[2020-02-04] MEDS: LISINOPRIL 20 MG TABLET PO SCH (08:49)
[2020-02-04] MEDS: SENNOSIDES 8.6 MG TABLET PO SCH ×3 (08:49→21:00)
[2020-02-04] MEDS: POLYETHYLENE GLYCOL 3350 17 GM PACKET. PO SCH (08:50)
[2020-02-04] MEDS: RIVASTIGMINE 13.3MG PATCH. TD SCH (08:50)
[2020-02-04] MEDS: MAGNESIUM HYDROXIDE 2,400 MG/30 ML ORAL.SUSP. PO PRN (08:54)
--- NOTE | 2020-02-04 09:27 | NUR ---
Patient calm and cooperative with assessment and medication. Patient appears lethargic.
[2020-02-04] MEDS ORDERED: MAG355OR12 PO (11:09)
[2020-02-04 15:59] VITALS: BP 98/62
[2020-02-04] MEDS: DIVALPROEX ER 250 MG TAB.ER.24H. PO SCH (17:13)
[2020-02-04] MEDS: MIRTAZAPINE 15 MG TABLET PO SCH ×2 (20:48→21:00)
[2020-02-04] MEDS: MELATONIN 3 MG TABLET PO SCH ×2 (20:48→21:00)
[2020-02-04] MEDS: traZODone 50 MG TABLET. PO PRN (20:49)
--- NOTE | 2020-02-04 21:51 | PDOC ---
Exam Note: Ceasar Note: Please also refer to the separate dictated note~for this date of service dictated separately.~Patient seen individually. Discussed the patient with Nursing staff reviewed the chart.~Reviewed interim history and current functioning. Reviewed vital signs,~Labs/ Radiology~and current medications noted below. Continue current treatment with the changes noted in the dictated addendum note Assessment: Vital Signs/I&O: Vital Signs Date Time Temp Pulse Resp B/P (MAP) Pulse Ox O2 Delivery O2 Flow Rate FiO2 02/04/20 20:21 98.7 98 02/04/20 15:59 68 18 98/62 (74) 02/04/20 06:22 Room Air 02/03/20 22:48 96.0 I & O 02/03/20 02/03/20 02/04/20 15:00 23:00 07:00 Intake Total 300 ml 240 ml Balance 300 ml 240 ml Current Medications: I have reviewed the current psychotropics carefully including drug interactions. Risk benefit ratio favors no change other than as noted in my dictated progress note. Diagnosis: Problems: (1) Impulse control disorder, unspecified (2) Lewy body dementia with behavioral disturbance (3) Anxiety disorder, unspecified (4) Major neurocognitive disorder (5) Major depressive disorder with psychotic features ROGE HOGAN MD Feb 04, 2020 21:51
--- NOTE | 2020-02-04 22:00 | NUR ---
Patient is in his room on assumption of care, asleep. Compliant with vital signs, but refused further assessments and medications despite repeated attempts. Patient appears to be sleeping presently. Will continue to monitor.
[2020-02-05 05:44] VITALS: BP 128/57
[2020-02-05] MEDS: medroxyPROGESTERone 5 MG TABLET PO SCH (08:42)
[2020-02-05] MEDS: TAMSULOSIN 0.4 MG CAP.ER.24H. PO SCH (08:42)
[2020-02-05] MEDS: RIVASTIGMINE 13.3MG PATCH. TD SCH (08:42)
[2020-02-05] MEDS: POLYETHYLENE GLYCOL 3350 17 GM PACKET. PO SCH (08:49)
[2020-02-05] MEDS: SENNOSIDES 8.6 MG TABLET PO SCH ×2 (09:00→19:46)
[2020-02-05] MEDS: LISINOPRIL 20 MG TABLET PO SCH (09:00)
[2020-02-05] MEDS: MEMANTINE 10 MG TABLET. PO SCH ×2 (09:00→19:46)
[2020-02-05 09:15] LABS: BASO % 1 % (0-3); EOS # 0.1 x10^3/uL (0.0-0.7); EOS % 1 % (0-3); HEMOGLOBIN 13.4 g/dL (13.0-17.5); LYMPH # 1.3 x10^3/uL (1.0-4.8); LYMPH % 22 % (24-48); MEAN CORPUSCULAR HEMOGLOBIN 30 pg (25-35); MEAN CORPUSCULAR HGB CONC 33 g/dL (31-37); MEAN CORPUSCULAR VOLUME 90 fL (79-100); MONO # 0.6 x10^3/uL (0.0-1.1); MONO % 9 % (0-9); NEUT % 67 % (31-73); PLATELET COUNT 280 x10^3/uL (140-400); RED BLOOD COUNT 4.44 x10^6/uL (4.30-5.70); RED CELL DISTRIBUTION WIDTH 13.7 % (11.5-14.5); WHITE BLOOD COUNT 6.1 x10^3/uL (4.0-11.0)
[2020-02-05 09:35] LABS: ALBUMIN 3.2 g/dL (3.4-5.0); CALCIUM 9.2 mg/dL (8.5-10.1); GFR 74.1; TOTAL BILIRUBIN 0.6 mg/dL (0.2-1.0); TOTAL PROTEIN 6.5 g/dL (6.4-8.2)
[2020-02-05 09:53] LABS: POTASSIUM 4.3 mmol/L (3.5-5.1)
--- NOTE | 2020-02-05 10:43 | NUR ---
Pt is confused, calm, compliant. No agitation, no aggression, no hallucinations or delusions. He is compliant with his medication and assessment.
[2020-02-05] MEDS: DIVALPROEX ER 250 MG TAB.ER.24H. PO SCH (16:56)
[2020-02-05 18:36] VITALS: BP 100/67
[2020-02-05] MEDS: MELATONIN 3 MG TABLET PO SCH (19:45)
[2020-02-05] MEDS: MIRTAZAPINE 15 MG TABLET PO SCH (19:46)
--- NOTE | 2020-02-05 21:48 | NUR ---
PT in bed awake at time of assessment. PT compliant with medications and assessment, following commands easily. PT calm. PT took medications whole with no complaint.
--- NOTE | 2020-02-05 22:12 | PDOC ---
Exam Note: Ceasar Note: Please also refer to the separate dictated note~for this date of service dictated separately.~Patient seen individually. Discussed the patient with Nursing staff reviewed the chart.~Reviewed interim history and current functioning. Reviewed vital signs,~Labs/ Radiology~and current medications noted below. Continue current treatment with the changes noted in the dictated addendum note Assessment: Vital Signs/I&O: Vital Signs Date Time Temp Pulse Resp B/P (MAP) Pulse Ox O2 Delivery O2 Flow Rate FiO2 02/05/20 21:26 98.4 96 02/05/20 18:36 67 17 100/67 (78) 02/04/20 06:22 Room Air 02/03/20 22:48 96.0 I & O 02/04/20 02/04/20 02/05/20 15:00 23:00 07:00 Intake Total 240 ml Balance 240 ml Labs: Laboratory Tests Test 02/05/20 09:00 White Blood Count 6.1 x10^3/uL (4.0-11.0) Red Blood Count 4.44 x10^6/uL (4.30-5.70) Hemoglobin 13.4 g/dL (13.0-17.5) Hematocrit 40.0 % (39.0-53.0) Mean Corpuscular Volume 90 fL (79-100) Mean Corpuscular Hemoglobin 30 pg (25-35) Mean Corpuscular Hemoglobin Concent 33 g/dL (31-37) Red Cell Distribution Width 13.7 % (11.5-14.5) Platelet Count 280 x10^3/uL (140-400) Neutrophils (%) (Auto) 67 % (31-73) Lymphocytes (%) (Auto) 22 % (24-48) L Monocytes (%) (Auto) 9 % (0-9) Eosinophils (%) (Auto) 1 % (0-3) Basophils (%) (Auto) 1 % (0-3) Neutrophils # (Auto) 4.0 x10^3uL (1.8-7.7) Lymphocytes # (Auto) 1.3 x10^3/uL (1.0-4.8) Monocytes # (Auto) 0.6 x10^3/uL (0.0-1.1) Eosinophils # (Auto) 0.1 x10^3/uL (0.0-0.7) Basophils # (Auto) 0.0 x10^3/uL (0.0-0.2) Sodium Level 142 mmol/L (136-145) Potassium Level 4.3 mmol/L (3.5-5.1) Chloride Level 107 mmol/L (98-107) Carbon Dioxide Level 27 mmol/L (21-32) Anion Gap 8 (6-14) Blood Urea Nitrogen 36 mg/dL (8-26) H Creatinine 1.0 mg/dL (0.7-1.3) Estimated GFR (Cockcroft-Gault) 74.1 BUN/Creatinine Ratio 36 (6-20) H Glucose Level 119 mg/dL (70-99) H Calcium Level 9.2 mg/dL (8.5-10.1) Total Bilirubin 0.6 mg/dL (0.2-1.0) Aspartate Amino Transferase (AST) 16 U/L (15-37) Alanine Aminotransferase (ALT) 24 U/L (16-63) Alkaline Phosphatase 64 U/L (46-116) Total Protein 6.5 g/dL (6.4-8.2) Albumin 3.2 g/dL (3.4-5.0) L Albumin/Globulin Ratio 1.0 (1.0-1.7) Current Medications: I have reviewed the current psychotropics carefully including drug interactions. Risk benefit ratio favors no change other than as noted in my dictated progress note. Diagnosis: Problems: (1) Impulse control disorder, unspecified (2) Lewy body dementia with behavioral disturbance (3) Anxiety disorder, unspecified (4) Major neurocognitive disorder (5) Major depressive disorder with psychotic features ROGE HOGAN MD Feb 05, 2020 22:12
[2020-02-06 05:43] VITALS: BP 105/59
[2020-02-06] MEDS: medroxyPROGESTERone 5 MG TABLET PO SCH (08:18)
[2020-02-06] MEDS: MEMANTINE 10 MG TABLET. PO SCH ×2 (08:18→20:13)
[2020-02-06] MEDS: SENNOSIDES 8.6 MG TABLET PO SCH ×2 (08:18→20:13)
[2020-02-06] MEDS: TAMSULOSIN 0.4 MG CAP.ER.24H. PO SCH (08:18)
[2020-02-06] MEDS: RIVASTIGMINE 13.3MG PATCH. TD SCH (08:19)
[2020-02-06] MEDS: POLYETHYLENE GLYCOL 3350 17 GM PACKET. PO SCH (08:19)
--- NOTE | 2020-02-06 11:00 | NUR ---
Nursing note: Pt in his room for morning meds and assessment. Pt initially pleasant and agreeable to taking meds but quickly became resistive and demanding this nurse to get out of his room. Meds were then crushed and mixed with chocolate ice cream and he was eventually compliant in taking them. He is currently in his bed sleeping. Will continue to monitor.
--- NOTE | 2020-02-06 11:05 | NUR ---
Nursing note: Pt was given PRN with AM meds d/t pt being irritable and resistive and unable to be redirected. PRN provided good effect.
--- NOTE | 2020-02-06 12:43 | NUR ---
GUANACO notified Lindsey, [facility] and [facility] Editor at [facility] of the health department decision to have all staff tested. If all results are negative, pt will be able to discharge. Lindsey is fine with pt discharging on Wednesday and requesting all of pt negative covoid tests. GUANACO will send those over and get with Lindsey on to finalize all plans.
[2020-02-06 15:31] VITALS: BP 114/70
[2020-02-06] MEDS: DIVALPROEX ER 250 MG TAB.ER.24H. PO SCH (16:58)
[2020-02-06] MEDS: QUEtiapine 25 MG TABLET. PO SCH (20:13)
[2020-02-06] MEDS: MIRTAZAPINE 15 MG TABLET PO SCH (20:13)
[2020-02-06] MEDS: MELATONIN 3 MG TABLET PO SCH (20:15)
--- NOTE | 2020-02-06 21:54 | PDOC ---
Exam Note: Ceasar Note: Please also refer to the separate dictated note~for this date of service dictated separately.~Patient seen individually. Discussed the patient with Nursing staff reviewed the chart.~Reviewed interim history and current functioning. Reviewed vital signs,~Labs/ Radiology~and current medications noted below. Continue current treatment with the changes noted in the dictated addendum note Assessment: Vital Signs/I&O: Vital Signs Date Time Temp Pulse Resp B/P (MAP) Pulse Ox O2 Delivery O2 Flow Rate FiO2 02/06/20 19:51 97.9 98 02/06/20 15:31 76 19 114/70 (85) Nasal Cannula 2.0 I & O 02/05/20 02/05/20 02/06/20 15:00 23:00 07:00 Intake Total 470 ml 300 ml Balance 470 ml 300 ml Current Medications: Meds: Current Medications Medications (Trade) Dose Ordered Sig/Jone Route PRN Reason Start Time Stop Time Status Last Admin Dose Admin Quetiapine Fumarate (SEROquel) 25 mg QHS PO 02/06/20 21:00 02/06/20 20:13 I have reviewed the current psychotropics carefully including drug interactions. Risk benefit ratio favors no change other than as noted in my dictated progress note. Diagnosis: Problems: (1) Impulse control disorder, unspecified (2) Lewy body dementia with behavioral disturbance (3) Anxiety disorder, unspecified (4) Major neurocognitive disorder (5) Major depressive disorder with psychotic features (6) Psychotic disorder ROGE HOGAN MD Feb 06, 2020 21:54
--- NOTE | 2020-02-06 22:00 | NUR ---
Nursing Note Pt states "No I cannot afford those medications, they are way to expensive, keep them I'm not doing it" . I told him they were crushed in chocolate and that it was very good he may like it. He continued to refused, but when the spoon came close to his mouth he opened, accepted and swallowed the bite. Pt disorganized and confused, but easily directed.
--- NOTE | 2020-02-07 05:15 | NUR ---
Nursing Note Pt hallucinating this AM see's snakes all over him. Will attempt a PRN.
[2020-02-07 05:41] VITALS: BP 130/86
[2020-02-07] MEDS: POLYETHYLENE GLYCOL 3350 17 GM PACKET. PO SCH (09:18)
[2020-02-07] MEDS: medroxyPROGESTERone 5 MG TABLET PO SCH (09:20)
[2020-02-07] MEDS: SENNOSIDES 8.6 MG TABLET PO SCH ×2 (09:20→20:41)
[2020-02-07] MEDS: MEMANTINE 10 MG TABLET. PO SCH ×2 (09:20→20:42)
[2020-02-07] MEDS: RIVASTIGMINE 13.3MG PATCH. TD SCH (09:20)
[2020-02-07] MEDS: TAMSULOSIN 0.4 MG CAP.ER.24H. PO SCH (09:20)
--- NOTE | 2020-02-07 10:48 | NUR ---
Nursing note: Pt laying in his bed when approached with morning meds. Pt was initially resistive with taking his meds crushed in pudding, but when the spoon was brought to his mouth, he was compliant in eating it. Pt denied having any hallucinations, but he was delusional. Pt stated he needs to keep studying for his exams. Pt was redirected. He is currently laying quietly in his bed. Will continue to monitor.
--- NOTE | 2020-02-07 11:35 | PDOC ---
Exam Note: Ceasar Note: This note is a late entry for 02/04/2020 covers elements not covered in my initial note. Subjective: The patient was evaluated on telehealth rounds in the evening of 02/04/2020 due to COVID-19 restrictions on the unit with no admissions and discharges. Per Juan C RN in the evening, he slept for 9 hours previous night. He has been calm. Appetite has been poor. In the evening he was agitated with cares. WBC has improved from 11 to 10. COVID is negative. Review of Systems: He has vague somatic symptoms, somewhat tired. No CV, , pulmonary, eye system symptoms on review. Mental Status Exam: Reasonably oriented to himself. The patient is somewhat paranoid, but less anxious as I met with him in the evening. Insight and judgment, recent and remote memory, attention and concentration, fund of knowledge is poor consistent with his diagnoses. No clear psychotic symptoms, suicidal or homicidal ideation. Laboratory Data: Reviewed. Impression: Major neurocognitive disorder, Lewy body with delusion, depression, and behavioral disturbance. Anxiety disorder unspecified. Impulse control disorder unspecified. Rest unchanged. Plan: No change from initial note. Assessment: Vital Signs/I&O: Vital Signs Date Time Temp Pulse Resp B/P (MAP) Pulse Ox O2 Delivery O2 Flow Rate FiO2 02/07/20 05:41 98.0 64 18 130/86 (101) 94 02/06/20 15:31 Nasal Cannula 2.0 I & O 02/06/20 02/06/20 02/07/20 15:00 23:00 07:00 Intake Total 600 ml 540 ml Balance 600 ml 540 ml Current Medications: Meds: Current Medications Medications (Trade) Dose Ordered Sig/Jone Route PRN Reason Start Time Stop Time Status Last Admin Dose Admin Quetiapine Fumarate (SEROquel) 25 mg QHS PO 02/06/20 21:00 02/06/20 20:13 I have reviewed the current psychotropics carefully including drug interactions. Risk benefit ratio favors no change other than as noted in my dictated progress note. Diagnosis: Problems: (1) Impulse control disorder, unspecified (2) Lewy body dementia with behavioral disturbance (3) Anxiety disorder, unspecified (4) Major neurocognitive disorder (5) Major depressive disorder with psychotic features (6) Psychotic disorder ROGE HOGAN MD Feb 07, 2020 11:35
--- NOTE | 2020-02-07 11:45 | PDOC ---
Exam Note: Ceasar Note: This note is a late entry for 02/05/2020 covers elements not covered in my initial note. Subjective: The patient was reviewed on telehealth rounds in the evening of 02/05/2020 with Cassidy MAYES due to COVID-19 restrictions on the unit with no admissions and discharges. He slept 7-1/2 hours previous night. He is somewhat drowsy at night, has done well during the day on 02/05/2020. He is less confused, less agitated. Review of Systems: No CV, , pulmonary, eye system symptoms on review. Mental Status Exam: Reasonably oriented to himself. The patient is less con fused, less agitated than before. Insight and judgment, recent and remote memory, attention and concentration, fund of knowledge is poor consistent with his diagnoses. No clear psychotic symptoms, suicidal or homicidal ideation. Laboratory Data: Reviewed. Impression: Major neurocognitive disorder, Lewy body with delusion, depression, and behavioral disturbance. Anxiety disorder unspecified. Impulse control disorder unspecified. Rest unchanged. Plan: No change from initial note. Assessment: Vital Signs/I&O: Vital Signs Date Time Temp Pulse Resp B/P (MAP) Pulse Ox O2 Delivery O2 Flow Rate FiO2 02/07/20 05:41 98.0 64 18 130/86 (101) 94 02/06/20 15:31 Nasal Cannula 2.0 I & O 02/06/20 02/06/20 02/07/20 15:00 23:00 07:00 Intake Total 600 ml 540 ml Balance 600 ml 540 ml Current Medications: Meds: Current Medications Medications (Trade) Dose Ordered Sig/Jone Route PRN Reason Start Time Stop Time Status Last Admin Dose Admin Quetiapine Fumarate (SEROquel) 25 mg QHS PO 02/06/20 21:00 02/06/20 20:13 I have reviewed the current psychotropics carefully including drug interactions. Risk benefit ratio favors no change other than as noted in my dictated progress note. Diagnosis: Problems: (1) Impulse control disorder, unspecified (2) Lewy body dementia with behavioral disturbance (3) Anxiety disorder, unspecified (4) Major neurocognitive disorder (5) Major depressive disorder with psychotic features (6) Psychotic disorder ROGE HOGAN MD Feb 07, 2020 11:45
--- NOTE | 2020-02-07 11:53 | PDOC ---
Exam Note: Ceasar Note: This note is a late entry for 02/06/2020 covers elements not covered in my initial note. Subjective: The patient was reviewed on telehealth rounds in the evening of 02/06/2020 with Louisa MAYES due to COVID-19 restrictions on the unit with no admissions and discharges. Per Louisa MAYES in the evening, he slept 7-1/4 hours previous night. He did well previous night. In the morning he was irritable. Received Zyprexa p.r.n. Initially refused his meds, took it later with pudding. Given his intermittent psychotic symptoms within the context of Lewy body dementia, we will start schedule Seroquel 25 mg p.o. h.s. Review of Systems: No CV, , pulmonary, eye system symptoms on review. Mental Status Exam: Reasonably oriented to himself. Insight and judgment, recent and remote memory, attention and concentration, fund of knowledge is poor consistent with his diagnoses. No clear psychotic symptoms, suicidal or homicidal ideation. Laboratory Data: Reviewed. Impression: Major neurocognitive disorder, Lewy body with delusion, depression, and behavioral disturbance. Anxiety disorder unspecified. Impulse control disorder unspecified. Rest unchanged. Plan: No change from initial note. Assessment: Vital Signs/I&O: Vital Signs Date Time Temp Pulse Resp B/P (MAP) Pulse Ox O2 Delivery O2 Flow Rate FiO2 02/07/20 05:41 98.0 64 18 130/86 (101) 94 02/06/20 15:31 Nasal Cannula 2.0 I & O 02/06/20 02/06/20 02/07/20 15:00 23:00 07:00 Intake Total 600 ml 540 ml Balance 600 ml 540 ml Current Medications: Meds: Current Medications Medications (Trade) Dose Ordered Sig/Jone Route PRN Reason Start Time Stop Time Status Last Admin Dose Admin Quetiapine Fumarate (SEROquel) 25 mg QHS PO 02/06/20 21:00 02/06/20 20:13 I have reviewed the current psychotropics carefully including drug interactions. Risk benefit ratio favors no change other than as noted in my dictated progress note. Diagnosis: Problems: (1) Impulse control disorder, unspecified (2) Lewy body dementia with behavioral disturbance (3) Anxiety disorder, unspecified (4) Major neurocognitive disorder (5) Major depressive disorder with psychotic features (6) Psychotic disorder EDISON,MAN M MD Feb 07, 2020 11:53
[2020-02-07 15:24] VITALS: BP 106/69
[2020-02-07] MEDS: DIVALPROEX ER 250 MG TAB.ER.24H. PO SCH (17:00)
[2020-02-07] MEDS: QUEtiapine 25 MG TABLET. PO SCH (20:41)
[2020-02-07] MEDS: MELATONIN 3 MG TABLET PO SCH (20:41)
[2020-02-07] MEDS: MIRTAZAPINE 15 MG TABLET PO SCH (20:42)
--- NOTE | 2020-02-07 21:51 | PDOC ---
Exam Note: Ceasar Note: Please also refer to the separate dictated note~for this date of service dictated separately.~Patient seen individually. Discussed the patient with Nursing staff reviewed the chart.~Reviewed interim history and current functioning. Reviewed vital signs,~Labs/ Radiology~and current medications noted below. Continue current treatment with the changes noted in the dictated addendum note Assessment: Vital Signs/I&O: Vital Signs Date Time Temp Pulse Resp B/P (MAP) Pulse Ox O2 Delivery O2 Flow Rate FiO2 02/07/20 20:56 98.5 95 02/07/20 15:24 73 17 106/69 (81) Room Air 02/06/20 15:31 2.0 I & O 0 02/06/20 02/06/20 02/07/20 15:00 23:00 07:00 Intake Total 600 ml 540 ml Balance 600 ml 540 ml Current Medications: I have reviewed the current psychotropics carefully including drug interactions. Risk benefit ratio favors no change other than as noted in my dictated progress note. Diagnosis: Problems: (1) Impulse control disorder, unspecified (2) Lewy body dementia with behavioral disturbance (3) Anxiety disorder, unspecified (4) Major neurocognitive disorder (5) Major depressive disorder with psychotic features (6) Psychotic disorder ROGE HOGAN MD Feb 07, 2020 21:51
[2020-02-07] MEDS: traZODone 50 MG TABLET. PO PRN (22:13)
[2020-02-07] MEDS: QUEtiapine 25 MG TABLET. PO PRN (23:00)
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
--- NOTE | 2020-02-08 | NUR ---
Patient behaviors have continued unabated. PRN Seroquel administered at 2315, with no effect. Redirection and PRN's have been unsuccessful thus far.
[2020-02-08] MEDS: traZODone 50 MG TABLET. PO PRN (01:45)
--- NOTE | 2020-02-08 02:30 | NUR ---
PRNs administered thus far have had no effect on patient. Patient given clean brief and changed into onesie with staff assist of 3. He became very agitated, yelling "Oh my God, are you people trying to have me killed? Murdered? I can't have that, it's too much. They will kill me, don't you know?" After being changed, patient continued to run back and forth in the hallway. Repeat Trazadone and Zydis pulled and administered at 0140 in a small amount of water with a staff assist of 3. Patient appeared to be slowing down some, sitting in chair for longer periods of time. He then began to yell "I can't see! Goddammit, I'm blind! I don't have a handle switch, ya know." Patient remains awake in the [facility] at present time. Will continue to monitor.
[2020-02-08 05:57] VITALS: BP 102/74
[2020-02-08] MEDS: RIVASTIGMINE 13.3MG PATCH. TD SCH (08:04)
[2020-02-08] MEDS: POLYETHYLENE GLYCOL 3350 17 GM PACKET. PO SCH (08:04)
[2020-02-08] MEDS: TAMSULOSIN 0.4 MG CAP.ER.24H. PO SCH (08:05)
[2020-02-08] MEDS: SENNOSIDES 8.6 MG TABLET PO SCH ×2 (08:05→20:40)
[2020-02-08] MEDS: medroxyPROGESTERone 5 MG TABLET PO SCH (08:05)
[2020-02-08] MEDS: MEMANTINE 10 MG TABLET. PO SCH ×2 (08:05→20:40)
[2020-02-08] MEDS: CHOLECALCIFEROL (VITAMIN D3) 50,000 UNIT CAPSULE PO SCH (08:06)
[2020-02-08] MEDS ORDERED: ZIPR20CA2 PO (10:33)
[2020-02-08] MEDS ORDERED: QUET25TA5 PO (10:43)
[2020-02-08 10:54] LABS: BASO % 0 % (0-3); EOS % 0 % (0-3); HEMATOCRIT 41.9 % (39.0-53.0); HEMOGLOBIN 14.2 g/dL (13.0-17.5); LYMPH # 1.3 x10^3/uL (1.0-4.8); LYMPH % 15 % (24-48); MEAN CORPUSCULAR HEMOGLOBIN 31 pg (25-35); MEAN CORPUSCULAR HGB CONC 34 g/dL (31-37); MEAN CORPUSCULAR VOLUME 90 fL (79-100); MONO % 12 % (0-9); NEUT # 5.9 x10^3uL (1.8-7.7); NEUT % 72 % (31-73); PLATELET COUNT 289 x10^3/uL (140-400); RED BLOOD COUNT 4.66 x10^6/uL (4.30-5.70); RED CELL DISTRIBUTION WIDTH 13.6 % (11.5-14.5); WHITE BLOOD COUNT 8.2 x10^3/uL (4.0-11.0)
--- NOTE | 2020-02-08 11:05 | NUR ---
Nursing note: Pt in secure hallway this morning for meds and assessment. He was resistive with meds crushed in pudding, but when the spoon is placed next to his mouth, he willingly opens and accepts the bite of pudding. Pt continues to intermittently pace back and forth in the secure hallway and yells out. He appears to have auditory hallucinations and responds to them by having conversations with people not there. PRN was given. Will continue to monitor.
[2020-02-08 11:07] LABS: ALBUMIN/GLOBULIN RATIO 1.1 (1.0-1.7); CALCIUM 9.7 mg/dL (8.5-10.1); CREATININE 1.3 mg/dL (0.7-1.3); GFR 54.7; POTASSIUM 4.4 mmol/L (3.5-5.1); TOTAL BILIRUBIN 0.5 mg/dL (0.2-1.0); TOTAL PROTEIN 7.8 g/dL (6.4-8.2)
--- NOTE | 2020-02-08 11:37 | NUR ---
SW received call from pt to get an update on pt. SW informed pt that pt tends to be more combative at night and did not sleep at all last night. Pt is delusional and thinks that his family is being murdered; but was able to be redirectable. Pt will start Geodon 20mg daily and have an EKG in 2 days. CMP and CBC will be repeated. SW noted with that tentative discharge will be on Wednesday; SW to call with more definitive plans.
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
[2020-02-08 16:27] VITALS: BP 119/73
[2020-02-08] MEDS: DIVALPROEX ER 250 MG TAB.ER.24H. PO SCH (17:09)
[2020-02-08] MEDS: MIRTAZAPINE 15 MG TABLET PO SCH (20:40)
[2020-02-08] MEDS: MELATONIN 3 MG TABLET PO SCH (20:40)
[2020-02-08] MEDS: QUEtiapine 25 MG TABLET. PO SCH (20:40)
--- NOTE | 2020-02-08 21:51 | PDOC ---
Exam Note: Ceasar Note: Please also refer to the separate dictated note~for this date of service dictated separately.~Patient seen individually. Discussed the patient with Nursing staff reviewed the chart.~Reviewed interim history and current functioning. Reviewed vital signs,~Labs/ Radiology~and current medications noted below. Continue current treatment with the changes noted in the dictated addendum note Assessment: Vital Signs/I&O: Vital Signs Date Time Temp Pulse Resp B/P (MAP) Pulse Ox O2 Delivery O2 Flow Rate FiO2 02/08/20 16:27 97.5 77 16 119/73 (88) 98 02/07/20 15:24 Room Air 02/06/20 15:31 2.0 I & O 0 02/07/20 02/07/20 02/08/20 15:00 23:00 07:00 Intake Total 584 ml 420 ml Balance 584 ml 420 ml Labs: Laboratory Tests Test 02/08/20 10:40 White Blood Count 8.2 x10^3/uL (4.0-11.0) Red Blood Count 4.66 x10^6/uL (4.30-5.70) Hemoglobin 14.2 g/dL (13.0-17.5) Hematocrit 41.9 % (39.0-53.0) Mean Corpuscular Volume 90 fL (79-100) Mean Corpuscular Hemoglobin 31 pg (25-35) Mean Corpuscular Hemoglobin Concent 34 g/dL (31-37) Red Cell Distribution Width 13.6 % (11.5-14.5) Platelet Count 289 x10^3/uL (140-400) Neutrophils (%) (Auto) 72 % (31-73) Lymphocytes (%) (Auto) 15 % (24-48) L Monocytes (%) (Auto) 12 % (0-9) H Eosinophils (%) (Auto) 0 % (0-3) Basophils (%) (Auto) 0 % (0-3) Neutrophils # (Auto) 5.9 x10^3uL (1.8-7.7) Lymphocytes # (Auto) 1.3 x10^3/uL (1.0-4.8) Monocytes # (Auto) 1.0 x10^3/uL (0.0-1.1) Eosinophils # (Auto) 0.0 x10^3/uL (0.0-0.7) Basophils # (Auto) 0.0 x10^3/uL (0.0-0.2) Sodium Level 147 mmol/L (136-145) H Potassium Level 4.4 mmol/L (3.5-5.1) Chloride Level 107 mmol/L (98-107) Carbon Dioxide Level 29 mmol/L (21-32) Anion Gap 11 (6-14) Blood Urea Nitrogen 32 mg/dL (8-26) H Creatinine 1.3 mg/dL (0.7-1.3) Estimated GFR (Cockcroft-Gault) 54.7 BUN/Creatinine Ratio 25 (6-20) H Glucose Level 131 mg/dL (70-99) H Calcium Level 9.7 mg/dL (8.5-10.1) Total Bilirubin 0.5 mg/dL (0.2-1.0) Aspartate Amino Transferase (AST) 15 U/L (15-37) Alanine Aminotransferase (ALT) 27 U/L (16-63) Alkaline Phosphatase 74 U/L (46-116) Total Protein 7.8 g/dL (6.4-8.2) Albumin 4.0 g/dL (3.4-5.0) Albumin/Globulin Ratio 1.1 (1.0-1.7) Current Medications: I have reviewed the current psychotropics carefully including drug interactions. Risk benefit ratio favors no change other than as noted in my dictated progress note. Diagnosis: Problems: (1) Impulse control disorder, unspecified (2) Lewy body dementia with behavioral disturbance (3) Anxiety disorder, unspecified (4) Major neurocognitive disorder (5) Major depressive disorder with psychotic features (6) Psychotic disorder ROGE HOGAN MD Feb 08, 2020 21:51
--- NOTE | 2020-02-08 23:35 | NUR ---
This evening pt was in the hallway and thought he was at a baseball game, he would call out scores at times and converse with other fans. Meds were given crushed in ensure without difficulty. After meds he was sleeping in the chair he was assisted to bed and has continued to sleep.
[2020-02-09 06:15] VITALS: BP 123/79
--- NOTE | 2020-02-09 06:30 | PDOC ---
Exam Note: Ceasar Note: This note is a late entry for 02/07/2020 covers elements not covered in my initial note. Subjective: The patient was reviewed on telehealth rounds due to COVID-19 restrictions on the unit in the evening of 02/07/2020 with Louisa MAYES. He slept 6 hours previous night. He has been somewhat delusional, believes he has to study for an exam, quite agitated, restless, more-so in the evening. We will monitor this, another day and then decide on further changes. Review of Systems: No CV, , pulmonary, eye system symptoms on review. Mental Status Exam: Reasonably oriented to himself. Insight and judgment, recent and remote memory, attention and concentration, fund of knowledge is poor consistent with his diagnoses. No clear psychotic symptoms, suicidal or homicidal ideation. Laboratory Data: Reviewed. Impression: Major neurocognitive disorder, Lewy body with delusion, depression, and behavioral disturbance. Anxiety disorder unspecified. Impulse control disorder unspecified. Rest unchanged. Plan: No change from initial note. Assessment: Vital Signs/I&O: Vital Signs Date Time Temp Pulse Resp B/P (MAP) Pulse Ox O2 Delivery O2 Flow Rate FiO2 02/09/20 06:15 97.6 73 14 123/79 (94) 97 02/07/20 15:24 Room Air 02/06/20 15:31 2.0 I & O 02/08/20 02/08/20 02/09/20 15:00 23:00 07:00 Intake Total 600 ml 480 ml Balance 600 ml 480 ml Labs: Laboratory Tests Test 02/08/20 10:40 White Blood Count 8.2 x10^3/uL (4.0-11.0) Red Blood Count 4.66 x10^6/uL (4.30-5.70) Hemoglobin 14.2 g/dL (13.0-17.5) Hematocrit 41.9 % (39.0-53.0) Mean Corpuscular Volume 90 fL (79-100) Mean Corpuscular Hemoglobin 31 pg (25-35) Mean Corpuscular Hemoglobin Concent 34 g/dL (31-37) Red Cell Distribution Width 13.6 % (11.5-14.5) Platelet Count 289 x10^3/uL (140-400) Neutrophils (%) (Auto) 72 % (31-73) Lymphocytes (%) (Auto) 15 % (24-48) L Monocytes (%) (Auto) 12 % (0-9) H Eosinophils (%) (Auto) 0 % (0-3) Basophils (%) (Auto) 0 % (0-3) Neutrophils # (Auto) 5.9 x10^3uL (1.8-7.7) Lymphocytes # (Auto) 1.3 x10^3/uL (1.0-4.8) Monocytes # (Auto) 1.0 x10^3/uL (0.0-1.1) Eosinophils # (Auto) 0.0 x10^3/uL (0.0-0.7) Basophils # (Auto) 0.0 x10^3/uL (0.0-0.2) Sodium Level 147 mmol/L (136-145) H Potassium Level 4.4 mmol/L (3.5-5.1) Chloride Level 107 mmol/L (98-107) Carbon Dioxide Level 29 mmol/L (21-32) Anion Gap 11 (6-14) Blood Urea Nitrogen 32 mg/dL (8-26) H Creatinine 1.3 mg/dL (0.7-1.3) Estimated GFR (Cockcroft-Gault) 54.7 BUN/Creatinine Ratio 25 (6-20) H Glucose Level 131 mg/dL (70-99) H Calcium Level 9.7 mg/dL (8.5-10.1) Total Bilirubin 0.5 mg/dL (0.2-1.0) Aspartate Amino Transferase (AST) 15 U/L (15-37) Alanine Aminotransferase (ALT) 27 U/L (16-63) Alkaline Phosphatase 74 U/L (46-116) Total Protein 7.8 g/dL (6.4-8.2) Albumin 4.0 g/dL (3.4-5.0) Albumin/Globulin Ratio 1.1 (1.0-1.7) Current Medications: I have reviewed the current psychotropics carefully including drug interactions. Risk benefit ratio favors no change other than as noted in my dictated progress note. Diagnosis: Problems: (1) Impulse control disorder, unspecified (2) Lewy body dementia with behavioral disturbance (3) Anxiety disorder, unspecified (4) Major neurocognitive disorder (5) Major depressive disorder with psychotic features (6) Psychotic disorder ROGE HOGAN MD Feb 09, 2020 06:30
--- NOTE | 2020-02-09 06:39 | PDOC ---
Exam Note: Ceasar Note: This note is a late entry for 02/08/2020 covers elements not covered in my initial note. Subjective: The patient was reviewed on telehealth rounds due to COVID-19 restrictions on the unit in the morning of 02/08/2020 with treatment team with Agnes Sharif and Pennie (hospital social worker) and Louisa MAYES. Per Louisa RN in the evening on telehealth rounds, he slept 5 hours previous night. Appetite is 50%. The patient has been swinging at staff previous evening, combative, trying to walk around at night without his pants and shirt, had to be in the [facility] hallway, running up and down the hallway, sprinting across as paranoid, believes someone was murdered. Staff tried to put him in an onesie. He was resistive because he felt this was an indication that he was going to be murdered as well. We will check CBC, CMP, to make sure there is no metabolic abnormality to account for his worsening psychosis. He was having auditory hallucinations in the morning. We will also initiate Geodon 20 mg a day for his psychotic symptoms. Check EKG for QTc in 2 days. Review of Systems: Positive for some tiredness. No CV, , pulmonary, eye system symptoms on review. Mental Status Exam: Reasonably oriented to himself. 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 He did receive Geodon in the morning and has been very pleasant, had a conversation with his over the phone and was very appropriate during this. He seemed to remember this as well. Speech is coherent, little pressured. Abstraction is fair. Computation impaired. Language function is intact. Laboratory Data: Reviewed. Impression: Major neurocognitive disorder, Lewy body with delusion, depression, and behavioral disturbance. Anxiety disorder unspecified. Impulse control disorder unspecified. Rest unchanged. Plan: No change from initial note. Initiate Geodon as noted. We will check EKG for QTc and continue rest unchanged. Assessment: Vital Signs/I&O: Vital Signs Date Time Temp Pulse Resp B/P (MAP) Pulse Ox O2 Delivery O2 Flow Rate FiO2 02/09/20 06:15 97.6 73 14 123/79 (94) 97 02/07/20 15:24 Room Air 02/06/20 15:31 2.0 I & O0 02/08/20 02/08/20 02/09/20 15:00 23:00 07:00 Intake Total 600 ml 480 ml Balance 600 ml 480 ml Labs: Laboratory Tests Test 02/08/20 10:40 White Blood Count 8.2 x10^3/uL (4.0-11.0) Red Blood Count 4.66 x10^6/uL (4.30-5.70) Hemoglobin 14.2 g/dL (13.0-17.5) Hematocrit 41.9 % (39.0-53.0) Mean Corpuscular Volume 90 fL (79-100) Mean Corpuscular Hemoglobin 31 pg (25-35) Mean Corpuscular Hemoglobin Concent 34 g/dL (31-37) Red Cell Distribution Width 13.6 % (11.5-14.5) Platelet Count 289 x10^3/uL (140-400) Neutrophils (%) (Auto) 72 % (31-73) Lymphocytes (%) (Auto) 15 % (24-48) L Monocytes (%) (Auto) 12 % (0-9) H Eosinophils (%) (Auto) 0 % (0-3) Basophils (%) (Auto) 0 % (0-3) Neutrophils # (Auto) 5.9 x10^3uL (1.8-7.7) Lymphocytes # (Auto) 1.3 x10^3/uL (1.0-4.8) Monocytes # (Auto) 1.0 x10^3/uL (0.0-1.1) Eosinophils # (Auto) 0.0 x10^3/uL (0.0-0.7) Basophils # (Auto) 0.0 x10^3/uL (0.0-0.2) Sodium Level 147 mmol/L (136-145) H Potassium Level 4.4 mmol/L (3.5-5.1) Chloride Level 107 mmol/L (98-107) Carbon Dioxide Level 29 mmol/L (21-32) Anion Gap 11 (6-14) Blood Urea Nitrogen 32 mg/dL (8-26) H Creatinine 1.3 mg/dL (0.7-1.3) Estimated GFR (Cockcroft-Gault) 54.7 BUN/Creatinine Ratio 25 (6-20) H Glucose Level 131 mg/dL (70-99) H Calcium Level 9.7 mg/dL (8.5-10.1) Total Bilirubin 0.5 mg/dL (0.2-1.0) Aspartate Amino Transferase (AST) 15 U/L (15-37) Alanine Aminotransferase (ALT) 27 U/L (16-63) Alkaline Phosphatase 74 U/L (46-116) Total Protein 7.8 g/dL (6.4-8.2) Albumin 4.0 g/dL (3.4-5.0) Albumin/Globulin Ratio 1.1 (1.0-1.7) Current Medications: I have reviewed the current psychotropics carefully including drug interactions. Risk benefit ratio favors no change other than as noted in my dictated progress note. Diagnosis: Problems: (1) Impulse control disorder, unspecified (2) Lewy body dementia with behavioral disturbance (3) Anxiety disorder, unspecified (4) Major neurocognitive disorder (5) Major depressive disorder with psychotic features (6) Psychotic disorder ROGE HOGAN MD Feb 09, 2020 06:39
[2020-02-09] MEDS: medroxyPROGESTERone 5 MG TABLET PO SCH (08:00)
[2020-02-09] MEDS: POLYETHYLENE GLYCOL 3350 17 GM PACKET. PO SCH (08:00)
[2020-02-09] MEDS: SENNOSIDES 8.6 MG TABLET PO SCH ×2 (08:01→20:14)
[2020-02-09] MEDS: TAMSULOSIN 0.4 MG CAP.ER.24H. PO SCH (08:01)
[2020-02-09] MEDS: MEMANTINE 10 MG TABLET. PO SCH ×2 (08:01→20:10)
[2020-02-09] MEDS: RIVASTIGMINE 13.3MG PATCH. TD SCH (08:01)
[2020-02-09] MEDS: ZIPRASIDONE 20 MG CAPSULE. PO SCH (08:02)
[2020-02-09 15:41] VITALS: BP 123/78
--- NOTE | 2020-02-09 16:03 | NUR ---
GUANACO contacted pt , Magda and discussed having pt discharge on Wednesday. GUANACO has reached out to [place] to discuss transport in the afternoon. GUANACO will be able to finalize all plans first thing Wednesday and get back to [facility] with the transport time. Pt will continue on hospice services once he returns to [place].
--- NOTE | 2020-02-09 16:12 | NUR ---
[facility] Social Work Discharge Planning Form Patient Name EDUARDO ALBRIGHT Admit Date: 10 January 2020 DISCHARGE PLAN Discharge Destination: Pt to discharge back to [facility] Sunday 02/11 Care Assessment: N/A Level II Assessment: N/A Transportation: Transport to be set up by facility; Time TBD Special Instructions/Notes: Please fax all discharge orders and medication list to the numbers listed below. DISCHARGE TO FACILITY Facility: [facility] Address: [address] [place] [address] Rd; [place], [place] Contact Name: Lindsey Malhotra, Health and Green Chain Offbearer: Contact Name: Roberta Parsons: Health and Rolling Up Machine Operator PCP: Dr. Merchant [facility]: Pt will return to hospice services.
[2020-02-09] MEDS: DIVALPROEX ER 250 MG TAB.ER.24H. PO SCH (17:01)
--- NOTE | 2020-02-09 17:10 | NUR ---
PATIENT SLEPT FOR MOST OF THE DAY. PATIENT AROUSES EASILY BUT CAN BE IRRITABLE WHEN AWOKE. PATIENT YELLS "NO" A LOT BUT WHEN MEDS WERE CRUSHED IN ENSURE AND STRAW WAS PUT TO MOUTH PATIENT WOULD CHUG THE WHOLE BOTTLE. PATIENT WAS IRRITABLE WHEN WOKEN UP TO GET A SHOWER DUE TO INCONTINENCE, BUT ONCE IN SHOWER CHAIR PATIENT WAS COMPLIANT AND FEEL BACK ASLEEP. PATIENT COMPLIANT WITH MEDICATION PASSES AND ASSESSMENT.
[2020-02-09] MEDS: MELATONIN 3 MG TABLET PO SCH (20:10)
[2020-02-09] MEDS: traZODone 50 MG TABLET. PO PRN (20:11)
[2020-02-09] MEDS: MIRTAZAPINE 15 MG TABLET PO SCH (20:13)
[2020-02-09] MEDS: QUEtiapine 25 MG TABLET. PO SCH (20:13)
--- NOTE | 2020-02-09 21:51 | PDOC ---
Exam Note: Ceasar Note: Please also refer to the separate dictated note~for this date of service dictated separately.~Patient seen individually. Discussed the patient with Nursing staff reviewed the chart.~Reviewed interim history and current functioning. Reviewed vital signs,~Labs/ Radiology~and current medications noted below. Continue current treatment with the changes noted in the dictated addendum note Assessment: Vital Signs/I&O: Vital Signs Date Time Temp Pulse Resp B/P (MAP) Pulse Ox O2 Delivery O2 Flow Rate FiO2 02/09/20 21:01 98.1 97 02/09/20 15:41 91 17 123/78 (93) 02/07/20 15:24 Room Air 02/06/20 15:31 2.0 I & O 02/08/20 02/08/20 02/09/20 15:00 23:00 07:00 Intake Total 600 ml 480 ml Balance 600 ml 480 ml Current Medications: Meds: Current Medications Medications (Trade) Dose Ordered Sig/Jone Route PRN Reason Start Time Stop Time Status Last Admin Dose Admin Ziprasidone (Geodon) 20 mg DAILY PO 02/09/20 09:00 02/09/20 08:02 I have reviewed the current psychotropics carefully including drug interactions. Risk benefit ratio favors no change other than as noted in my dictated progress note. Diagnosis: Problems: (1) Impulse control disorder, unspecified (2) Lewy body dementia with behavioral disturbance (3) Anxiety disorder, unspecified (4) Major neurocognitive disorder (5) Major depressive disorder with psychotic features (6) Psychotic disorder ROGE HOGAN MD Feb 09, 2020 21:51
--- NOTE | 2020-02-09 22:00 | NUR ---
Patient is in bed on assumption of care, awake in his bed. He is irritable, disorganized, confused. Resistant to medications but took them with some encouragement. No agitation. Patient does not appear to be experiencing any pain or discomfort. He appears to be sleeping comfortably at present time.
[2020-02-10 06:17] VITALS: BP 123/86
[2020-02-10] MEDS: RIVASTIGMINE 13.3MG PATCH. TD SCH (08:00)
[2020-02-10] MEDS: POLYETHYLENE GLYCOL 3350 17 GM PACKET. PO SCH (08:00)
[2020-02-10] MEDS: MEMANTINE 10 MG TABLET. PO SCH ×2 (08:01→19:57)
[2020-02-10] MEDS: medroxyPROGESTERone 5 MG TABLET PO SCH (08:01)
[2020-02-10] MEDS: ZIPRASIDONE 20 MG CAPSULE. PO SCH (08:01)
[2020-02-10] MEDS: SENNOSIDES 8.6 MG TABLET PO SCH ×2 (08:01→19:56)
[2020-02-10] MEDS: TAMSULOSIN 0.4 MG CAP.ER.24H. PO SCH (08:01)
[2020-02-10 15:24] VITALS: BP 110/80
--- NOTE | 2020-02-10 16:15 | NUR ---
Pt up for meals in room with much encouragement. Fluids pushed. Pt took am meds in pudding also with repeated attempts. Pt spoke with on phone in afternoon. Visit went well. Has been resting quietly in bed most of day.
[2020-02-10] MEDS: DIVALPROEX ER 250 MG TAB.ER.24H. PO SCH (17:00)
[2020-02-10] MEDS: MELATONIN 3 MG TABLET PO SCH (19:56)
[2020-02-10] MEDS: traZODone 50 MG TABLET. PO PRN (19:56)
[2020-02-10] MEDS: MIRTAZAPINE 15 MG TABLET PO SCH (19:57)
[2020-02-10] MEDS: QUEtiapine 25 MG TABLET. PO SCH (19:57)
--- NOTE | 2020-02-10 21:49 | PDOC ---
Exam Note: Ceasar Note: Please also refer to the separate dictated note~for this date of service dictated separately.~Patient seen individually. Discussed the patient with Nursing staff reviewed the chart.~Reviewed interim history and current functioning. Reviewed vital signs,~Labs/ Radiology~and current medications noted below. Continue current treatment with the changes noted in the dictated addendum note Assessment: Vital Signs/I&O: Vital Signs Date Time Temp Pulse Resp B/P (MAP) Pulse Ox O2 Delivery O2 Flow Rate FiO2 02/10/20 20:00 98.1 98 Room Air 02/10/20 15:24 72 20 110/80 (90) 02/06/20 15:31 2.0 I & O 0 02/09/20 02/09/20 02/10/20 15:00 23:00 07:00 Intake Total 0 ml 420 ml Balance 0 ml 420 ml Current Medications: I have reviewed the current psychotropics carefully including drug interactions. Risk benefit ratio favors no change other than as noted in my dictated progress note. Diagnosis: Problems: (1) Impulse control disorder, unspecified (2) Lewy body dementia with behavioral disturbance (3) Anxiety disorder, unspecified (4) Major neurocognitive disorder (5) Major depressive disorder with psychotic features (6) Psychotic disorder ROGE HOGAN MD Feb 10, 2020 21:49
[2020-02-11 05:29] VITALS: BP 105/65
[2020-02-11] MEDS: medroxyPROGESTERone 5 MG TABLET PO SCH (08:12)
[2020-02-11] MEDS: MEMANTINE 10 MG TABLET. PO SCH ×2 (08:12→19:37)
[2020-02-11] MEDS: SENNOSIDES 8.6 MG TABLET PO SCH ×2 (08:12→19:37)
[2020-02-11] MEDS: TAMSULOSIN 0.4 MG CAP.ER.24H. PO SCH (08:13)
[2020-02-11] MEDS: ZIPRASIDONE 20 MG CAPSULE. PO SCH (08:13)
[2020-02-11] MEDS: POLYETHYLENE GLYCOL 3350 17 GM PACKET. PO SCH (08:13)
[2020-02-11] MEDS: RIVASTIGMINE 13.3MG PATCH. TD SCH (08:13)
--- NOTE | 2020-02-11 08:29 | NUR ---
Patient calm and cooperative with assessment and medication. Patient appears lethargic.
[2020-02-11 15:00] VITALS: BP 133/76
[2020-02-11] MEDS: DIVALPROEX ER 250 MG TAB.ER.24H. PO SCH (16:14)
[2020-02-11] MEDS: MIRTAZAPINE 15 MG TABLET PO SCH (19:37)
[2020-02-11] MEDS: QUEtiapine 25 MG TABLET. PO SCH (19:37)
[2020-02-11] MEDS: traZODone 50 MG TABLET. PO PRN (19:37)
[2020-02-11] MEDS: MAGNESIUM HYDROXIDE 2,400 MG/30 ML ORAL.SUSP. PO PRN (19:37)
[2020-02-11] MEDS: MELATONIN 3 MG TABLET PO SCH (19:37)
--- NOTE | 2020-02-11 21:52 | PDOC ---
Exam Note: Ceasar Note: Please also refer to the separate dictated note~for this date of service dictated separately.~Patient seen individually. Discussed the patient with Nursing staff reviewed the chart.~Reviewed interim history and current functioning. Reviewed vital signs,~Labs/ Radiology~and current medications noted below. Continue current treatment with the changes noted in the dictated addendum note Assessment: Vital Signs/I&O: Vital Signs Date Time Temp Pulse Resp B/P (MAP) Pulse Ox O2 Delivery O2 Flow Rate FiO2 02/11/20 20:58 97.2 96 02/11/20 15:00 72 18 133/76 (95) Room Air 02/06/20 15:31 2.0 I & O 0 02/10/20 02/10/20 02/11/20 15:00 23:00 07:00 Intake Total 720 ml 480 ml Balance 720 ml 480 ml Current Medications: I have reviewed the current psychotropics carefully including drug interactions. Risk benefit ratio favors no change other than as noted in my dictated progress note. Diagnosis: Problems: (1) Impulse control disorder, unspecified (2) Lewy body dementia with behavioral disturbance (3) Anxiety disorder, unspecified (4) Major neurocognitive disorder (5) Major depressive disorder with psychotic features ROGE HOGAN MD Feb 11, 2020 21:52
--- NOTE | 2020-02-11 22:05 | NUR ---
Pt located in his room this evening. Pt labile; initially refusing evening temperature and O2 check yelling at ELECTRICAL MACHINE BUILDER to "get out of here." Pt later compliant. Pt compliant with crushed medications in pudding.
[2020-02-11] MEDS ORDERED: ACET325T9 PO (23:49)
--- NOTE | 2020-02-12 05:04 | NUR ---
Pt has been awake the majority of the night. PRN Zyprexa administered at 0230 with no effect.
[2020-02-12 05:21] VITALS: BP 106/63
--- NOTE | 2020-02-12 06:47 | PDOC ---
Exam Note: Ceasar Note: This note is a late entry for 02/09/2020 covers elements not covered in my initial note. Subjective: The patient was reviewed on telehealth rounds due to COVID-19 restrictions on the unit in the evening of 02/09/2020 with Jesu MAYES. Discussed with nursing staff, reviewed the chart. The patient was sedated, slept all day. Geodon was started. He is tolerating it well, slightly less paranoid. Review of Systems: No CV, , pulmonary, eye, ENT system symptoms on review. Mental Status Exam: Oriented to himself and situation. Speech is coherent, has some latency. Abstraction is fair. Computation impaired. Language function is intact. Mood and affect somewhat withdrawn. Laboratory Data: Reviewed. Impression: Major neurocognitive disorder, Lewy body with delusion, depression, and behavioral disturbance. Anxiety disorder unspecified. Impulse control disorder unspecified. Plan: No change from initial note. Assessment: Vital Signs/I&O: Vital Signs Date Time Temp Pulse Resp B/P (MAP) Pulse Ox O2 Delivery O2 Flow Rate FiO2 02/12/20 05:21 97.9 70 18 106/63 (77) 96 02/11/20 15:00 Room Air 02/06/20 15:31 2.0 I & O 02/11/20 02/11/20 02/12/20 15:00 23:00 07:00 Intake Total 480 ml 420 ml Balance 480 ml 420 ml Current Medications: I have reviewed the current psychotropics carefully including drug interactions. Risk benefit ratio favors no change other than as noted in my dictated progress note. Diagnosis: Problems: (1) Impulse control disorder, unspecified (2) Lewy body dementia with behavioral disturbance (3) Anxiety disorder, unspecified (4) Major neurocognitive disorder (5) Major depressive disorder with psychotic features (6) Psychotic disorder ROGE HOGAN MD Feb 12, 2020 06:47
--- NOTE | 2020-02-12 06:58 | PDOC ---
Exam Note: Ceasar Note: This note is a late entry for 02/10/2020 covers elements not covered in my initial note. Subjective: The patient was reviewed on telehealth rounds due to COVID-19 restrictions on the unit in the evening of 02/10/2020 with Yanet MAYES. Discussed with nursing staff, reviewed the chart. The patient slept reasonably well. QT corrected interval was 429 milliseconds. He did well previous night, that is where he normally gets most paranoid, psychotic, agitated, but this was better. Review of Systems: No CV, , pulmonary, eye, ENT system symptoms on review. He does complain of some tiredness. Reliability varies. Mental Status Exam: Oriented to himself and situation. Speech is coherent, has some latency. Abstraction is fair. Computation impaired. Language function is intact. Attention span is short. No suicidal or homicidal ideation. Laboratory Data: Reviewed. Impression: Major neurocognitive disorder, Lewy body with delusion, depression, and behavioral disturbance. Anxiety disorder unspecified. Impulse control disorder unspecified. Rest unchanged. Plan: No change from initial note. Assessment: Vital Signs/I&O: Vital Signs Date Time Temp Pulse Resp B/P (MAP) Pulse Ox O2 Delivery O2 Flow Rate FiO2 02/12/20 05:21 97.9 70 18 106/63 (77) 96 02/11/20 15:00 Room Air 02/06/20 15:31 2.0 I & O 02/11/20 02/11/20 02/12/20 15:00 23:00 07:00 Intake Total 480 ml 420 ml Balance 480 ml 420 ml Current Medications: I have reviewed the current psychotropics carefully including drug interactions. Risk benefit ratio favors no change other than as noted in my dictated progress note. Diagnosis: Problems: (1) Impulse control disorder, unspecified (2) Lewy body dementia with behavioral disturbance (3) Anxiety disorder, unspecified (4) Major neurocognitive disorder (5) Major depressive disorder with psychotic features (6) Psychotic disorder ROGE HOGAN MD Feb 12, 2020 06:58
--- NOTE | 2020-02-12 07:05 | PDOC ---
Exam Note: Ceasar Note: This note is a late entry for 02/11/2020 covers elements not covered in my initial note. Subjective: The patient was reviewed on telehealth rounds due to COVID-19 restrictions on the unit in the evening of 02/11/2020 with Juan C MAYES. Discussed with nursing staff, reviewed the chart. Overall the patient has had a good day. He slept 9-34 hours previous night. He has been somewhat lethargic at times, was pacing, agitated earlier in the afternoon but then he talked to his and is much calmer after that. Review of Systems: Positive for some tiredness. No CV, , pulmonary, eye, ENT system symptoms on review. Mental Status Exam: Oriented to himself and situation. Speech is coherent, has some latency. Abstraction is fair. Computation impaired. Language function is intact. Attention span is short. No suicidal or homicidal ideation. Laboratory Data: Reviewed. Impression: Major neurocognitive disorder, Lewy body with delusion, depression, and behavioral disturbance. Anxiety disorder unspecified. Impulse control disorder unspecified. Rest unchanged. Plan: No change from initial note. Assessment: Vital Signs/I&O: Vital Signs Date Time Temp Pulse Resp B/P (MAP) Pulse Ox O2 Delivery O2 Flow Rate FiO2 02/12/20 05:21 97.9 70 18 106/63 (77) 96 02/11/20 15:00 Room Air 02/06/20 15:31 2.0 I & O 02/11/20 02/11/20 02/12/20 15:00 23:00 07:00 Intake Total 480 ml 420 ml Balance 480 ml 420 ml Current Medications: I have reviewed the current psychotropics carefully including drug interactions. Risk benefit ratio favors no change other than as noted in my dictated progress note. Diagnosis: Problems: (1) Impulse control disorder, unspecified (2) Lewy body dementia with behavioral disturbance (3) Anxiety disorder, unspecified (4) Major neurocognitive disorder (5) Major depressive disorder with psychotic features ROGE HOGAN MD Feb 12, 2020 07:05
[2020-02-12] MEDS: RIVASTIGMINE 13.3MG PATCH. TD SCH (08:11)
[2020-02-12] MEDS: POLYETHYLENE GLYCOL 3350 17 GM PACKET. PO SCH (08:11)
[2020-02-12] MEDS: medroxyPROGESTERone 5 MG TABLET PO SCH (08:12)
[2020-02-12] MEDS: ZIPRASIDONE 20 MG CAPSULE. PO SCH (08:12)
[2020-02-12] MEDS: MEMANTINE 10 MG TABLET. PO SCH (08:12)
[2020-02-12] MEDS: SENNOSIDES 8.6 MG TABLET PO SCH (08:12)
[2020-02-12] MEDS: TAMSULOSIN 0.4 MG CAP.ER.24H. PO SCH (08:12)
--- NOTE | 2020-02-12 09:05 | NUR ---
Nursing note: Pt laying in his bed for morning med pass and assessment. He was slightly resistive with his meds crushed in pudding, but was compliant after redirection. He was cooperative with his assessment. Pt was delusional this morning, saying that people are trying to kill him through his food. Pt denies pain and denies other complaints. He is currently laying awake in his bed. Will continue to monitor.
--- NOTE | 2020-02-12 12:46 | NUR ---
Transition Record was faxed to follow-up provider with the following elements: Reason for admission, procedures, tests, principal diagnosis, pending studies, patient instructions, 14/12 contact information for unit, phone number to obtain pending test results, plan for follow-up care, physician follow-up, advanced directive information, and medication list with dose, duration and instructions. This information was included in the following documents: History and physical, lab results, study results, progress notes, social work planning form, DC instruction form, patient visit summary, and medication reconciliation form. Date & time record faxed: 02/12/2020 @ 0057 Record faxed to: Hipolito Haney @ [phone] Record discussed with/ report given to: Lila @ [phone]
--- NOTE | 2020-02-12 21:51 | PDOC ---
Exam Note: Ceasar Note: Please also refer to the separate dictated note~for this date of service dictated separately.~Patient seen individually. Discussed the patient with Nursing staff reviewed the chart.~Reviewed interim history and current functioning. Reviewed vital signs,~Labs/ Radiology~and current medications noted below. Continue current treatment with the changes noted in the dictated addendum note Assessment: Vital Signs/I&O: Vital Signs Date Time Temp Pulse Resp B/P (MAP) Pulse Ox O2 Delivery O2 Flow Rate FiO2 02/12/20 05:21 97.9 70 18 106/63 (77) 96 02/11/20 15:00 Room Air 02/06/20 15:31 2.0 I & O 0 02/11/20 02/11/20 02/12/20 15:00 23:00 07:00 Intake Total 480 ml 420 ml Balance 480 ml 420 ml Current Medications: I have reviewed the current psychotropics carefully including drug interactions. Risk benefit ratio favors no change other than as noted in my dictated progress note. Diagnosis: Problems: (1) Impulse control disorder, unspecified (2) Lewy body dementia with behavioral disturbance (3) Anxiety disorder, unspecified (4) Major neurocognitive disorder (5) Major depressive disorder with psychotic features ROGE HOGAN MD Feb 12, 2020 21:51
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
--- NOTE | 2020-02-15 23:07 | DS ---
DATE OF DISCHARGE: 02/12/2020 ADDENDUM At the time of discharge, the patient was on 2 atypical antipsychotics, Geodon 20 mg a day and Seroquel 25 mg at bedtime. Geodon had been added as he still remains psychotic and adjustments in the other atypical antipsychotics had failed. Once the patient has been stable for the next 60 days back at the long term, an attempt should be made to stop the Seroquel at that time to prevent the use of 2 atypical antipsychotics in combination. This note clarifies this suggestion to his outpatient provider, but the final decision would have to be made by the psychiatrist following the patient at that time. ROGE HOGAN MD DR: AMANDA/lilli JOB#: [id number] / [id number]
== END 2020-02-12 13:43 | DRG 57 ==
LOC: GEROPSY 20:09
PROVIDERS: ADMIT Psychiatry & Neurology Psychiatry; ATTEND Psychiatry & Neurology Psychiatry
DX: G31.83 Neurocognitive disorder with Lewy bodies (principal); F32.3 Major depressive disorder, single episode, severe with psychotic features; F01.51 Vascular dementia, unspecified severity, with behavioral disturbance; F02.81 Dementia in other diseases classified elsewhere, unspecified severity, with behavioral disturbance; E78.5 Hyperlipidemia, unspecified; E86.0 Dehydration; F41.1 Generalized anxiety disorder; F63.9 Impulse disorder, unspecified; G40.909 Epilepsy, unspecified, not intractable, without status epilepticus; H91.90 Unspecified hearing loss, unspecified ear; I10 Essential (primary) hypertension; M19.90 Unspecified osteoarthritis, unspecified site; N40.0 Benign prostatic hyperplasia without lower urinary tract symptoms; Z51.5 Encounter for palliative care; Z66 Do not resuscitate; K59.09 Other constipation; Z20.828 Contact with and (suspected) exposure to other viral communicable diseases; Z88.8 Allergy status to other drugs, medicaments and biological substances; Z79.899 Other long term (current) drug therapy
CPT/HCPCS: 36415; 70450; 71045; 80053; 80061; 80164; 81001; 82140; 82306; 82607; 83036; 83540; 83550; 83735; 84436; 84443; 84480; 85025; 86592; 87086; 87426; 93005; J1630; J2060; U0003-CS